=== PATIENT | female | born 1935 | race Two or more races ===

== ENCOUNTER 2018-01-27 13:16 | Inpatient (IN) | payer OTHER ==
--- NOTE | 2018-01-27 13:34 | PDOC ---
History of Present Illness - General Stated Complaint: ABDIMINAL PAIN Time Seen by Provider: 01/27/18 13:31 - History of Present Illness Initial Comments: 01/27/18 13:34 Ms. Singh is an 82 yo female w/ pmh of dementia, HTN, DM, CVA (1996), and HLD, who presents c/o a 2 day history of RLQ pain. Pain has been increasing over this time period to the point where she refused to get out of bed yesterday and has been in severe pain today. Patient normally is able to ambulate and has only facial asymmetry after her stroke. Per she normally likes to sit up however has been increasingly agitated and reported pain when he attempts to move her. Allergies: NKDA Past History - Past Medical History Allergies/Adverse Reactions: Allergies Allergy/AdvReac Type Severity Reaction Status Date / Time No Known Allergies Allergy Verified 01/27/18 13:39 Home Medications: Ambulatory Orders Amlodipine Bes/Olmesartan Med [Ant 5-20 mg Tablet] 1 tab PO DAILY 07/14/15 Aspirin [Aspirin EC] 81 mg PO DAILY 07/14/15 Atorvastatin Ca [Lipitor -] 20 mg PO DAILY 07/14/15 Linagliptin/Metformin HCl [Jentadueto 2.5 mg-500 mg Tab] 1 tab PO BID 07/14/15 CVA: Yes (1996) Dementia: Yes Diabetes: Yes HTN: Yes Hypercholesterolemia: Yes - Immunization History Immunization Up to Date: Yes - Suicide/Smoking/Psychosocial Hx Smoking Status: No Smoking History: Never smoked Number of Cigarettes Smoked Daily: 0 Hx Alcohol Use: No Drug/Substance Use Hx: No Substance Use Type: None Review of Systems - Review of Systems Comments:: 01/27/18 17:23 GENERAL/CONSTITUTIONAL: +Increased agitation. No fever or chills. HEAD, EYES, EARS, NOSE AND THROAT: No change in vision. No ear pain or discharge. No sore throat. CARDIOVASCULAR: No chest pain or shortness of breath RESPIRATORY: No cough, wheezing, or hemoptysis. GASTROINTESTINAL: No nausea, vomiting, diarrhea or constipation. GENITOURINARY: No dysuria, frequency, or change in urination. MUSCULOSKELETAL: No joint or muscle swelling or pain. No neck or back pain. SKIN: No rash NEUROLOGIC: +Unknown ENDOCRINE: No increased thirst. No abnormal weight change HEMATOLOGIC/LYMPHATIC: No anemia, easy bleeding, or history of blood clots. ALLERGIC/IMMUNOLOGIC: No hives or skin allergy. *Physical Exam - Physical Exam Comments: 01/27/18 17:30 GENERAL: +Patient altered from baseline per and visibly agitated. HEAD: No signs of trauma, normocephalic, atraumatic EYES: PERRLA, EOMI, sclera anicteric, conjunctiva clear ENT: Auricles normal inspection, hearing grossly normal, nares patent, oropharynx clear without exudates. Moist mucosa NECK: Normal ROM, supple, no lymphadenopathy, JVD, or masses LUNGS: No distress, speaks full sentences, clear to auscultation bilaterally HEART: Regular rate and rhythm, normal S1 and S2, no murmurs, rubs or gallops, peripheral pulses normal and equal bilaterally. ABDOMEN: Soft, nontender, normoactive bowel sounds. No guarding, no rebound. No masses EXTREMITIES: +Pain with straight leg raise (R). Normal inspection, no edema. No clubbing or cyanosis. NEUROLOGICAL: +Unable to assess. SKIN: Warm, Dry, normal turgor, no rashes or lesions noted. ED Treatment Course - LABORATORY CBC & Chemistry Diagram: 01/27/18 13:45 01/27/18 13:45 Medical Decision Making - Medical Decision Making 01/27/18 17:33 Ms. Singh is an 82 yo female w/ pmh as described who presents for evaluation of altered mental status and reported pain. Rectal temperature on presentation 100.6 with pulse of 106. Sepsis protocol started. Patient labs as below. Patient remains altered with pain. Levoquin IV given for empiric antibiotic coverage. CXR negative for acute process. UA negative for UTI. Additional fluids proscribed for elevated lactate. CT abdomen ordered to evaluate reported RLQ pain negative for acute process however raised some concern of obstructed UPJ. Bedside US revealed significant ureteral jets negating these concerns. Paging inpatient team for admission for further evaluation. 01/27/18 17:44 Patient admitted to inpatient team. Laboratory Results - last 24 hr 01/27/18 01/27/18 01/27/18 13:45 13:45 13:45 WBC 5.5 RBC 4.79 Hgb 11.4 Hct 35.2 MCV 73.5 L MCH 23.8 L MCHC 32.3 RDW 15.0 Plt Count 77 L MPV 10.4 Absolute Neuts (auto) 4.0 Neutrophils % 73.6 D Lymphocytes % 20.6 D Monocytes % 5.5 D Eosinophils % 0.0 Basophils % 0.3 Nucleated RBC % 0 PT with INR 11.00 INR 0.97 PTT (Actin FS) 25.5 L VBG pH POC VBG pCO2 POC VBG pO2 Mixed VBG HCO3 Sodium Potassium Chloride Carbon Dioxide Anion Gap BUN Creatinine Creat Clearance w eGFR Random Glucose Lactic Acid Calcium Total Bilirubin AST ALT Alkaline Phosphatase Troponin I Total Protein Albumin Urine Color Yellow Urine Appearance Clear Urine pH 5.0 D Ur Specific [place] 1.026 Urine Protein 2+ H Urine Glucose (UA) 3+ H D Urine Ketones 1+ H Urine Blood 1+ H Urine Nitrite Negative Urine Bilirubin Negative Urine Urobilinogen Negative Ur Leukocyte Esterase Negative Urine WBC (Auto) 2 Urine RBC (Auto) <1 Ur Epithelial Cells Rare Urine Bacteria Many Urine Mucus Rare 01/27/18 01/27/18 01/27/18 13:45 13:45 13:45 WBC RBC Hgb Hct MCV MCH MCHC RDW Plt Count MPV Absolute Neuts (auto) Neutrophils % Lymphocytes % Monocytes % Eosinophils % Basophils % Nucleated RBC % PT with INR INR PTT (Actin FS) VBG pH 7.39 POC VBG pCO2 40.7 POC VBG pO2 37.7 Mixed VBG HCO3 24.2 Sodium 142 Potassium 3.9 Chloride 107 Carbon Dioxide 26 Anion Gap 9 BUN 29 H Creatinine 0.8 Creat Clearance w eGFR > 60 Random Glucose 244 H Lactic Acid 2.1 H Calcium 9.3 Total Bilirubin 1.0 AST 17 ALT 20 Alkaline Phosphatase 71 Troponin I < 0.02 Total Protein 7.2 Albumin 3.9 Urine Color Urine Appearance Urine pH Ur Specific [place] Urine Protein Urine Glucose (UA) Urine Ketones Urine Blood Urine Nitrite Urine Bilirubin Urine Urobilinogen Ur Leukocyte Esterase Urine WBC (Auto) Urine RBC (Auto) Ur Epithelial Cells Urine Bacteria Urine Mucus *DC/Admit/Observation/Transfer Diagnosis at time of Disposition: Fever Qualifiers: Fever type: unspecified Qualified Code(s): R50.9 - Fever, unspecified Altered mental status Qualifiers: Altered mental status type: unspecified Qualified Code(s): R41.82 - Altered mental status, unspecified - Discharge Dispostion Decision to Admit order: Yes - Referrals Referrals: Judson Forman [Primary Care Provider] - - Patient Instructions - Post Discharge Activity
[2018-01-27] MEDS ORDERED: ACETAMINOPHEN 1000 MG/100 ML VIAL (NON FORMULARY) IVPB ONE (13:54)
[2018-01-27] MEDS ORDERED: SODIUM CHLORIDE 1,000 ML IV STA ×2 (13:54→17:39)
[2018-01-27] MEDS ORDERED: ACETAMINOPHEN INJECTION 100 ML IVPB ONE (14:01)
[2018-01-27 14:11] LABS: BASO % 0.3 % (0-2.0); HEMATOCRIT 35.2 % (32.4-45.2); HEMOGLOBIN 11.4 GM/dL (10.7-15.3); LYMPH % 20.6 % (8-40); MCH 23.8 pg (25.7-33.7); MCHC 32.3 g/dl (32.0-36.0); MEAN CELL VOLUME 73.5 fl (80-96); MEAN PLT VOLUME 10.4 fl (7.5-11.1); MONO % 5.5 % (3.8-10.2); NEUT % 73.6 % (42.8-82.8); PLATELET COUNT 77 K/MM3 (134-434); RBC 4.79 M/mm3 (3.60-5.2); WHITE BLOOD COUNT 5.5 K/mm3 (4.0-10.0)
[2018-01-27 14:12] LABS: URINE APPEARANCE CLEAR; URINE BILIRUBIN NEGATIVE (<2.0 mg/dL); URINE BLOOD 1+ (NEGATIVE); URINE COLOR YELLOW; URINE GLUCOSE (UA) 3+ (NEGATIVE); URINE KETONE 1+ (NEGATIVE); URINE LEUK ESTERASE NEGATIVE (NEGATIVE); URINE NITRITE NEGATIVE (NEGATIVE); URINE UROBILINOGEN NEGATIVE mg/dL (0.2-1.0)
[2018-01-27 14:16] LABS: URINE PROTEIN 2+ (NEGATIVE)
--- NOTE | 2018-01-27 14:17 | PDOC ---
Attending Attestation - Resident Resident Name: Rios Guillermo - ED Attending Attestation I have performed the following: I have examined & evaluated the patient, The case was reviewed & discussed with the resident, I agree w/resident's findings & plan, Exceptions are as noted - HPI HPI: 01/27/18 14:25 82y F hx of dementia, htn, dm, cva, hld, presents with change in behavior. Per her , he typically feeds her and she has not eated/drank as much recently , also not as active as she usually is and refused to get out of bed. He tried to pick her up and she was cmplaining of pain. No vomiting, cough, diarrhea, foul smelling urine. history limited due to her dementia nad most history provided from her spouse. GENERAL: The patient is awake, mubling, Nontoxic - in no acute distress. HEAD: Normocephalic, atraumatic. EYES: extraocular movements intact, sclera anicteric, conjunctiva clear. ENT: Normal voice, Moist mucous membranes. NECK: Normal range of motion, supple LUNGS: Breath sounds equal, clear to auscultation bilaterally. No wheezes, no rhonchi, no rales. HEART: tachycardic, normal S1 and S2 without murmur, rub or gallop. ABDOMEN: Soft, nontender, No guarding, no rebound. No CVA tenderness EXTREMITIES: Normal range of motion, no edema. No cords, erythema, or tenderness. NEUROLOGICAL: No facial assymetry, Normal speech, movinga ll 4 extrmities spontaneously and symmetrically PSYCH: Normal mood, normal affect. SKIN: hot to touch, Dry, normal turgor, no rashes The patient was noted febrile on arrival sepsis order set was obtained. The patient on the patient's clinical history and exam it is unclear the source of the fever, and chest x-ray, UA Give the patient some fluids and Tylenol Will reassess - Physicial Exam PE: 01/31/18 17:52 see above - Medical Decision Making 01/27/18 17:05 pt signed out to evening team to fu with results and disposition the patient Heart Score/ECG Review - ECG Impressions Comment:: 01/27/18 14:31 Twelve-lead EKG was performed and reviewed by me. There is normal sinus rhythm with a rate of 111 The axis is normal. The intervals are normal. There is normal R wave progression Nonspecific ST wave changes
[2018-01-27 14:20] LABS: VENOUS PC02 40.7 mmHg (38-52); VENOUS PH 7.39 (7.32-7.42); VENOUS PO2 37.7 mmHg (28-48)
[2018-01-27 14:22] LABS: INR 0.97 (0.82-1.09)
[2018-01-27 14:24] LABS: EPI CELLS RARE /HPF (FEW); URINE BACTERIA MANY /hpf (NONE SEEN); URINE MUCUS RARE
[2018-01-27 14:25] LABS: ACTIVATED PTT 25.5 SECONDS (26.9-34.4)
[2018-01-27 14:36] LABS: ALBUMIN 3.9 g/dl (3.4-5.0); ANION GAP 9 (8-16); BLOOD UREA NITROGEN 29 mg/dL (7-18); CALCIUM 9.3 mg/dL (8.5-10.1); CHLORIDE 107 mmol/L (98-107); CO2 26 mmol/L (21-32); GLUCOSE,RANDOM 244 mg/dL (74-106); POTASSIUM 3.9 mmol/L (3.5-5.1); SGOT/AST 17 U/L (15-37); SODIUM 142 mmol/L (136-145)
[2018-01-27 14:41] LABS: ALK PHOS 71 U/L (45-117); CREATININE 0.8 mg/dL (0.55-1.02); SGPT/ALT 20 U/L (12-78); TOT PROT 7.2 g/dl (6.4-8.2)
[2018-01-27] MEDS ORDERED: SODIUM CHLORIDE 1,000 ML IV ONE (15:08)
--- NOTE | 2018-01-27 18:41 | HP ---
CHIEF COMPLAINT: AMS PCP: Judson Forman HISTORY OF PRESENT ILLNESS: This is an 82 year old female with PMHx of anemia, CVA 1992, DM, hyperlipidemia , dementia, who presented to the ED with RLQ since yesterday. The patient's is the primary healthcare management. He reports the patient was diagnosed with dementia 4 years ago and if non-conversant. He states she speaks jibberish. He reports that yesterday he noticed she was having pain on her right side and this morning when she tried to change her diaper she was grimacing and crying out in pain. He denies any fevers at home. He denies any sick contacts. ER course was notable for: (1) Temp 100.6, pulse 106, BP 137/68, resp 20, O2 97% on RA (2) Chest x-ray with no definite interval change (3) CTAP with mild splenomegaly, cholelithiasis, suspected b/l UPJ obstructions. No evidence of appendicitis or acute pathology within the abdomen or pelvis Recent Travel: denies PAST MEDICAL HISTORY: as above PAST SURGICAL HISTORY: Lower extremity angioplasty Social History: Smoking: denies Alcohol: denies Drugs: denies Family History: Allergies No Known Allergies Allergy (Verified 01/27/18 13:39) HOME MEDICATIONS: Home Medications Medication Instructions Recorded Amlodipine Bes/Olmesartan Med 1 tab PO DAILY 07/14/15 [Ant 5-20 mg Tablet] Aspirin [Aspirin EC] 81 mg PO DAILY 07/14/15 Atorvastatin Ca [Lipitor -] 20 mg PO DAILY 07/14/15 Linagliptin/Metformin HCl 1 tab PO BID 07/14/15 [Jentadueto 2.5 mg-500 mg Tab] REVIEW OF SYSTEMS CONSTITUTIONAL: Absent: fever, chills, diaphoresis, loss of appetite, weight change HEENT: Absent: rhinorrhea, nasal congestion, throat pain, throat swelling, difficulty swallowing, mouth swelling, ear pain, eye pain, visual changes CARDIOVASCULAR: Absent: chest pain, syncope, palpitations, irregular heart rate, lightheadedness , peripheral edema RESPIRATORY: Absent: cough, shortness of breath, dyspnea with exertion, orthopnea, wheezing, stridor, hemoptysis GASTROINTESTINAL: RLQ pain that began yesterday and worsened this morning. Absent: abdominal distension, nausea, vomiting, diarrhea, constipation, melena, hematochezia GENITOURINARY: Absent: dysuria, frequency, urgency, hesitancy, hematuria, flank pain, genital pain MUSCULOSKELETAL: Absent: myalgia, arthralgia, joint swelling, back pain, neck pain SKIN: Absent: rash, itching, pallor HEMATOLOGIC/IMMUNOLOGIC: Absent: easy bleeding, easy bruising, lymphadenopathy, frequent infections ENDOCRINE: Absent: unexplained weight gain, unexplained weight loss, heat intolerance, cold intolerance NEUROLOGIC: Hx of CVA 1992, change in mental status since yesterday Absent: focal weakness or paresthesias, dizziness, unsteady gait, seizure, bladder or bowel incontinence PSYCHIATRIC: Absent: anxiety, depression PHYSICAL EXAMINATION Vital Signs - 24 hr 01/27/18 01/27/18 01/27/18 13:35 13:45 15:08 Temperature 100.6 F H Pulse Rate 106 H Pulse Rate [ 113 H 105 H Apical] Respiratory 20 20 18 Rate Blood Pressure 137/68 Blood Pressure 145/73 163/79 [Right Arm] O2 Sat by Pulse 97 98 98 Oximetry (%) 01/27/18 17:52 Temperature 98 F Pulse Rate Pulse Rate [ 108 H Apical] Respiratory 20 Rate Blood Pressure Blood Pressure 145/65 [Right Arm] O2 Sat by Pulse 95 Oximetry (%) GENERAL: Awake, alert, and fully oriented, in no acute distress. HEAD: Normal with no signs of trauma. EYES: Pupils equal, round and reactive to light, extraocular movements intact, sclera anicteric, conjunctiva clear. No lid lag. EARS, NOSE, THROAT: Ears normal, nares patent, oropharynx clear without exudates. Moist mucous membranes. NECK: Normal range of motion, supple without lymphadenopathy, JVD, or masses. LUNGS: Breath sounds equal, clear to auscultation bilaterally. No wheezes, and no crackles. No accessory muscle use. HEART: Regular rate and rhythm, normal S1 and S2 without murmur, rub or gallop. ABDOMEN: Soft, nontender, not distended, normoactive bowel sounds, no guarding, no rebound, no masses. No hepatomegaly or splenomegaly. MUSCULOSKELETAL: Normal range of motion at all joints. No bony deformities or tenderness. No CVA tenderness. UPPER EXTREMITIES: 2+ pulses, warm, well-perfused. No cyanosis. No clubbing. No peripheral edema. LOWER EXTREMITIES: 2+ pulses, warm, well-perfused. No calf tenderness. No peripheral edema. NEUROLOGICAL: Cranial nerves II-XII intact. Normal speech. Normal gait. PSYCHIATRIC: Cooperative. Good eye contact. Appropriate mood and affect. SKIN: Warm, dry, normal turgor, no rashes or lesions noted, normal capillary refill. Laboratory Results - last 24 hr 01/27/18 01/27/18 01/27/18 13:45 13:45 13:45 WBC 5.5 RBC 4.79 Hgb 11.4 Hct 35.2 MCV 73.5 L MCH 23.8 L MCHC 32.3 RDW 15.0 Plt Count 77 L MPV 10.4 Absolute Neuts (auto) 4.0 Neutrophils % 73.6 D Lymphocytes % 20.6 D Monocytes % 5.5 D Eosinophils % 0.0 Basophils % 0.3 Nucleated RBC % 0 PT with INR 11.00 INR 0.97 PTT (Actin FS) 25.5 L VBG pH POC VBG pCO2 POC VBG pO2 Mixed VBG HCO3 Sodium Potassium Chloride Carbon Dioxide Anion Gap BUN Creatinine Creat Clearance w eGFR Random Glucose Lactic Acid Calcium Total Bilirubin AST ALT Alkaline Phosphatase Troponin I Total Protein Albumin Urine Color Yellow Urine Appearance Clear Urine pH 5.0 D Ur Specific [place] 1.026 Urine Protein 2+ H Urine Glucose (UA) 3+ H D Urine Ketones 1+ H Urine Blood 1+ H Urine Nitrite Negative Urine Bilirubin Negative Urine Urobilinogen Negative Ur Leukocyte Esterase Negative Urine WBC (Auto) 2 Urine RBC (Auto) <1 Ur Epithelial Cells Rare Urine Bacteria Many Urine Mucus Rare 01/27/18 01/27/18 01/27/18 13:45 13:45 13:45 WBC RBC Hgb Hct MCV MCH MCHC RDW Plt Count MPV Absolute Neuts (auto) Neutrophils % Lymphocytes % Monocytes % Eosinophils % Basophils % Nucleated RBC % PT with INR INR PTT (Actin FS) VBG pH 7.39 POC VBG pCO2 40.7 POC VBG pO2 37.7 Mixed VBG HCO3 24.2 Sodium 142 Potassium 3.9 Chloride 107 Carbon Dioxide 26 Anion Gap 9 BUN 29 H Creatinine 0.8 Creat Clearance w eGFR > 60 Random Glucose 244 H Lactic Acid 2.1 H Calcium 9.3 Total Bilirubin 1.0 AST 17 ALT 20 Alkaline Phosphatase 71 Troponin I < 0.02 Total Protein 7.2 Albumin 3.9 Urine Color Urine Appearance Urine pH Ur Specific [place] Urine Protein Urine Glucose (UA) Urine Ketones Urine Blood Urine Nitrite Urine Bilirubin Urine Urobilinogen Ur Leukocyte Esterase Urine WBC (Auto) Urine RBC (Auto) Ur Epithelial Cells Urine Bacteria Urine Mucus 01/27/18 17:15 WBC RBC Hgb Hct MCV MCH MCHC RDW Plt Count MPV Absolute Neuts (auto) Neutrophils % Lymphocytes % Monocytes % Eosinophils % Basophils % Nucleated RBC % PT with INR INR PTT (Actin FS) VBG pH POC VBG pCO2 POC VBG pO2 Mixed VBG HCO3 Sodium Potassium Chloride Carbon Dioxide Anion Gap BUN Creatinine Creat Clearance w eGFR Random Glucose Lactic Acid 1.3 Calcium Total Bilirubin AST ALT Alkaline Phosphatase Troponin I Total Protein Albumin Urine Color Urine Appearance Urine pH Ur Specific [place] Urine Protein Urine Glucose (UA) Urine Ketones Urine Blood Urine Nitrite Urine Bilirubin Urine Urobilinogen Ur Leukocyte Esterase Urine WBC (Auto) Urine RBC (Auto) Ur Epithelial Cells Urine Bacteria Urine Mucus Assessment: This is an 82 year old female with PMHx of anemia, CVA 1992, DM, hyperlipidemia, dementia, who presented to the ED with RLQ since yesterday. Plan: 1) Acute metabolic encephalopathy - R/o infectious etiology; UA negative, f/u urine culture. f/u blood culture - F/u CT head to r/o hemorrhage - F/u b12, folic acid, rpr - Given empiric levaquin in the ED - F/u ID consult for further recommendations - F/u neurology consult 2) B/l UPJ obstruction - F/u urology consult 3) DM - BGM ACHS - ISS ACHS 4) HTN - Continue Norvasc - Continue Diovan 5) Hyperlipidemia - Continue Lipitor 6) F/E/N: - Diabetic diet 7) Prophylaxis: - Hold all chemical DVT prophylaxis until head CT rules out hemorrhage 8) Dispo: - Requires continued inpatient care CODE STATUS: FULL CODE Visit type - Emergency Visit Emergency Visit: Yes Care time: The patient presented to the Emergency Department on the above date and was hospitalized for further evaluation of their emergent condition. - New Patient This patient is new to me today: Yes Date on this admission: 01/27/18 - Critical Care Critical Care patient: No Hospitalist Screening - Colonoscopy Questionnaire Colonoscopy Questionnaire: Colonoscopy Questionnaire - Patient: 50 - 75 years old and never had a screening colonoscopy: Unknown History of colon or rectal polyps, or CA: Unknown History of IBD, Crohn's disease or UC: Unknown History of abdominal radiation therapy as a child: Unknown - Relative: 1 with colon or rectal CA, or polyps at age 60 or younger: Unknown Colon or rectal CA diagnosed at age 45 or younger: Unknown Multiple relatives with colon or rectal CA: Unknown - Outcome: Screening Result: Negative Screen
[2018-01-27] MEDS: SODIUM CHLORIDE 1,000 ML IV SCH (19:48)
[2018-01-27 21:49] LABS: BASO % 0.4 % (0-2.0); HEMATOCRIT 29.7 % (32.4-45.2); HEMOGLOBIN 9.6 GM/dL (10.7-15.3); LYMPH % 19.4 % (8-40); MCH 23.7 pg (25.7-33.7); MCHC 32.2 g/dl (32.0-36.0); MEAN CELL VOLUME 73.7 fl (80-96); MEAN PLT VOLUME 10.2 fl (7.5-11.1); MONO % 7.1 % (3.8-10.2); NEUT % 73.1 % (42.8-82.8); PLATELET COUNT 72 K/MM3 (134-434); RBC 4.04 M/mm3 (3.60-5.2); RDW 14.9 % (11.6-15.6); WHITE BLOOD COUNT 4.5 K/mm3 (4.0-10.0)
[2018-01-27] MEDS: INSULIN SLIDING SCALE (NOVOLOG) 1 VIAL SQ SCH (21:56)
[2018-01-27 22:12] LABS: ALBUMIN 3.2 g/dl (3.4-5.0); ANION GAP 6 (8-16); BLOOD UREA NITROGEN 22 mg/dL (7-18); CALCIUM 7.6 mg/dL (8.5-10.1); CHLORIDE 112 mmol/L (98-107); CO2 27 mmol/L (21-32); CREATININE 0.7 mg/dL (0.55-1.02); GLUCOSE,RANDOM 194 mg/dL (74-106); POTASSIUM 4.3 mmol/L (3.5-5.1); SGOT/AST 19 U/L (15-37); SGPT/ALT 16 U/L (12-78); SODIUM 145 mmol/L (136-145)
[2018-01-27 22:15] LABS: ALK PHOS 68 U/L (45-117); BILIRUBIN,TOTAL 0.7 mg/dL (0.2-1.0); TOT PROT 6.2 g/dl (6.4-8.2)
[2018-01-27 22:48] LABS: PLATELET ESTIMATE MOD DECREASED
[2018-01-28] MEDS: INSULIN SLIDING SCALE (NOVOLOG) 1 VIAL SQ SCH ×4 (06:04→22:01)
--- NOTE | 2018-01-28 07:18 | CONSULT ---
Consult - Past Medical History [employer]: Yes: Dementia, TIA Cardio/Vascular: Yes: HTN, Hyperlipdemia Endocrine: Yes: Diabetes Mellitus - Past Surgical History Past Surgical History: Yes: None - Alcohol/Substance Use Hx Alcohol Use: No History of Substance Use: reports: None - Smoking History Smoking history: Never smoked Aproximately how many cigarettes per day: 0 - Social History ADL: Family Assistance History of Recent Travel: No Home Medications - Allergies Allergies/Adverse Reactions: Allergies Allergy/AdvReac Type Severity Reaction Status Date / Time No Known Allergies Allergy Verified 01/27/18 13:39 - Home Medications Home Medications: Ambulatory Orders Amlodipine Bes/Olmesartan Med [Ant 5-20 mg Tablet] 1 tab PO DAILY 07/14/15 Aspirin [Aspirin EC] 81 mg PO DAILY 07/14/15 Atorvastatin Ca [Lipitor -] 20 mg PO DAILY 07/14/15 Linagliptin/Metformin HCl [Jentadueto 2.5 mg-500 mg Tab] 1 tab PO BID 07/14/15 Physical Exam Vital Signs: Vital Signs Temperature 99.4 F 01/28/18 06:00 Pulse Rate 99 H 01/28/18 06:00 Respiratory Rate 18 01/28/18 06:00 Blood Pressure 156/79 01/28/18 06:00 O2 Sat by Pulse Oximetry (%) 98 01/27/18 21:00 Labs: CBC, BMP 01/27/18 21:10 01/27/18 21:10 Assessment/Plan Patient with isolated fever. Tenderness to palpationover both hips. could explain low grade fever stat hip and pelvis bilateral Xrays ordered no WBC count elevation no tachycardia Clear CXR UA negativer cultures negative in the past Cultures pending full consult to follow
--- NOTE | 2018-01-28 07:54 | PN ---
Progress Note, Physician Chief Complaint: ID Full noted dictated Only history from chart Low grade temp 99-100 Does not respond questions - Current Medication List Current Medications: Active Medications Amlodipine Besylate (Norvasc -) 5 mg PO DAILY OSMANY Atorvastatin Calcium (Lipitor -) 20 mg PO HS OSMANY Sodium Chloride (Normal Saline -) 1,000 mls @ 83 mls/hr IV ASDIR OSMANY Last Admin: 01/27/18 19:48 Dose: 83 mls/hr Insulin Aspart (Novolog Vial Sliding Scale -) 1 vial SQ ACHS OSMANY; Protocol Last Admin: 01/28/18 06:04 Dose: 2 units Valsartan (Diovan -) 160 mg PO DAILY [facility] - Objective Vital Signs: Vital Signs Temperature 99.4 F 01/28/18 06:00 Pulse Rate 99 H 01/28/18 06:00 Respiratory Rate 18 01/28/18 06:00 Blood Pressure 156/79 01/28/18 06:00 O2 Sat by Pulse Oximetry (%) 98 01/27/18 21:00 Constitutional: Yes: No Distress Cardiovascular: Yes: S1, S2 Respiratory: Yes: WNL, Regular, CTA Bilaterally Gastrointestinal: Yes: WNL, Normal Bowel Sounds, Soft. No: Tenderness Edema: No Labs: CBC, BMP 01/27/18 21:10 01/27/18 21:10 INR, PTT INR 0.97 (0.82-1.09) 01/27/18 13:45 Problem List - Problems (1) Dementia Code(s): F03.90 - UNSPECIFIED DEMENTIA WITHOUT BEHAVIORAL DISTURBANCE (2) Altered mental status Code(s): R41.82 - ALTERED MENTAL STATUS, UNSPECIFIED Qualifiers: Altered mental status type: unspecified Qualified Code(s): R41.82 - Altered mental status, unspecified (3) Fever Code(s): R50.9 - FEVER, UNSPECIFIED Qualifiers: Fever type: unspecified Qualified Code(s): R50.9 - Fever, unspecified (4) Hydronephrosis Code(s): N13.30 - UNSPECIFIED HYDRONEPHROSIS Qualifiers: Hydronephrosis type: unspecified Qualified Code(s): N13.30 - Unspecified hydronephrosis Assessment/Plan Laboratory Tests 01/27/18 01/27/18 01/27/18 13:45 13:45 17:15 WBC Hgb Hct Plt Count Creatinine Lactic Acid 2.1 H 1.3 Total Bilirubin AST ALT Alkaline Phosphatase Ur Leukocyte Esterase Negative Urine WBC (Auto) 2 Urine Bacteria Many 01/27/18 01/27/18 21:10 21:10 WBC 4.5 Hgb 9.6 L D Hct 29.7 L D Plt Count 72 L Creatinine 0.7 Lactic Acid Total Bilirubin 0.7 D AST 19 ALT 16 Alkaline Phosphatase 68 Ur Leukocyte Esterase Urine WBC (Auto) Urine Bacteria Assessment Fever altered mental status I suspect metabolic encephalopathy- may have urinary infection and treat accordingly Plan Ceftriaxone 1 gram daily pending cultures Anthony CALLE
[2018-01-28] MEDS ORDERED: CEFTRIAXONE 1,000 MG in DEXTROSE 5%-WATER - 50 ML IVPB SCH (08:15)
--- NOTE | 2018-01-28 08:25 | CON.NEURO ---
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 Cardio/Vascular: Yes: HTN, Hyperlipdemia Endocrine: Yes: Diabetes Mellitus - Past Surgical History Past Surgical History: Yes: None - Alcohol/Substance Use Hx Alcohol Use: No History of Substance Use: reports: None - Smoking History Smoking history: Never smoked Aproximately how many cigarettes per day: 0 - Social History ADL: Family Assistance History of Recent Travel: No Home Medications - Allergies Allergies/Adverse Reactions: Allergies Allergy/AdvReac Type Severity Reaction Status Date / Time No Known Allergies Allergy Verified 01/27/18 13:39 - Home Medications Home Medications: Ambulatory Orders Amlodipine Bes/Olmesartan Med [Ant 5-20 mg Tablet] 1 tab PO DAILY 07/14/15 Aspirin [Aspirin EC] 81 mg PO DAILY 07/14/15 Atorvastatin Ca [Lipitor -] 20 mg PO DAILY 07/14/15 Linagliptin/Metformin HCl [Jentadueto 2.5 mg-500 mg Tab] 1 tab PO BID 07/14/15 Physical Exam-Neuro Vital Signs: Vital Signs Temperature 99.4 F 01/28/18 06:00 Pulse Rate 99 H 01/28/18 06:00 Respiratory Rate 18 01/28/18 06:00 Blood Pressure 156/79 01/28/18 06:00 O2 Sat by Pulse Oximetry (%) 98 01/27/18 21:00 Labs: INR, PTT INR 0.97 (0.82-1.09) 01/27/18 13:45 Assessment/Plan cc Dementia HPI 82 Year old female history of stroke, anemia, DM, Dementia for four years. She came with right lower quadrant pain and temp of [address] scan , which is normal. Patient is non verbal and not mobile as baseline. Patient is non communicative and I tried to speak to her with help of principal biostatistician. Patient has no seizure. She has been started on Abx empirically. There is no witnessed seizure in hospital. PMH as above. SH angioplasty in lower extremity SH,FH,ROS reviewed in chart HOME MEDICATIONS: Home Medications Medication Instructions Recorded Amlodipine Bes/Olmesartan Med 1 tab PO DAILY 07/14/15 [Ant 5-20 mg Tablet] Aspirin [Aspirin EC] 81 mg PO DAILY 07/14/15 Atorvastatin Ca [Lipitor -] 20 mg PO DAILY 07/14/15 Linagliptin/Metformin HCl 1 tab PO BID 07/14/15 [Jentadueto 2.5 mg-500 mg Tab] Neurological Examination Drowsy and opens eye, mumbling and not making sense. not able to follow command. eomi, no face asymmetry, pupils reactive moving upper extremity lower extremity seems to have rigidity and not moving as much reflex are generalized grade 2 There is terminal neck stiffness, could be due to osteoarthritis CT head is normal Assessment- worsening of mental status, History of severe dementia. Clinically less likley to be meningitis ( no siginificant neck stiffness, wbc and no high grade fever), Most likley intercurrent illness may have worsen. Plan- there is no need for any further testing ( Spinal tap) at this time. - Continue supportive care - Please feel free to call me if any question Thanking you so much Anselmo Hutson MD
--- NOTE | 2018-01-28 08:41 | CONS ---
DATE OF CONSULTATION: DATE OF DICTATION: 01/28/2018 HISTORY OF PRESENT ILLNESS: This is an 82-year-old female with a history of dementia who I am asked to see after being admitted with fever. The patient though arousable is unable to answer any questions appropriately I assume on the basis of her dementia. Thus, the history is obtained from reviewing multiple notes in the chart. She is a known diabetic with a history of a stroke in the past and presented to the emergency room with what was described as right lower quadrant pain. Her takes care of her and notes that she has had a diagnosis of dementia for several years and is generally nonconversant. Apparently the day of admission she complained of some pain on her right side and when he tried to change her diaper appeared to be grimacing and cried out in pain. She had low-grade fever on arrival. She was given a dose of Levaquin empirically after cultures of blood and urine were obtained. Her chest x-ray did not show any evidence of pneumonia. Her platelets were noted to be low, but this is apparently chronic and as of now unexplained. A CAT scan of the abdomen showed suspected bilateral UVJ obstructions and a urinalysis showed a few white cells with many bacteria. No evidence of acute abdomen was seen. Currently her temperature is 99. She appears in no acute distress. PAST MEDICAL HISTORY: As noted above. SURGICAL HISTORY: Lower extremity angioplasty. MEDICATIONS: Amlodipine; aspirin; atorvastatin; linagliptin; metformin. SOCIAL HISTORY: . Nonsmoker. No history of alcohol use. FAMILY HISTORY: Currently obtainable. REVIEW OF SYSTEMS:Respiratory: No obvious cough, shortness of breath or hemoptysis. Cardiac: No chest pain, syncope, palpitations, peripheral edema. Gastrointestinal: Right lower quadrant pain x1 day ?, no abdominal distention, nausea, vomiting, diarrhea, melena. Genitourinary: Unable to report any dysuria or frequency if she has that. Neurologic: History of a stroke, history of dementia. PHYSICAL EXAMINATION:Vital Signs: Her temperature now is 99.4, pulse 99, blood pressure 156/79, respirations 18. Initially temperature 100, pulse 116, blood pressure 130/68, O2 saturation 98 on room air. Neck: Supple. Lungs: Clear to percussion and auscultation. Heart: S1, S2. Regular rhythm without audible murmur. Abdomen: Soft, nontender, without hepatosplenomegaly. No focal tenderness, guarding, rebound. No palpable mass. Extremities: No clubbing, cyanosis or edema. LABORATORY DATA: The white count was 4.5, hemoglobin 9.6, platelets of 72,000 with an unremarkable differential. BUN 22, creatinine 0.6. Liver enzymes within normal limits. A urinalysis with 2+ protein, 3+ glucose, 1+ blood, 2 WBCs and many bacteria. Cultures of blood and urine currently pending. Chest x-ray shows no evidence of acute infiltrate. ASSESSMENT: An 82-year-old female with dementia presents with overall change in her day-to-day condition in which her noted complaining of new onset of right lower abdominal pain and increasingly agitated as per the notes, particularly when the patient was moved. Low-grade temperature. Possibility that the patient may have passed a kidney stone. 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 RECOMMENDATIONS: I would empirically treat her for the possibility of an underlying urinary tract infection with metabolic encephalopathy on the basis of UTI. Will get a renal sonogram . Low platelets are noted. This is chronic. BLANCA MILLS M.D. VINCENT/[id number]
[2018-01-28 08:50] LABS: ALBUMIN 3.3 g/dl (3.4-5.0); ANION GAP 8 (8-16); BILIRUBIN,TOTAL 0.9 mg/dL (0.2-1.0); BLOOD UREA NITROGEN 19 mg/dL (7-18); CALCIUM 8.3 mg/dL (8.5-10.1); CHLORIDE 109 mmol/L (98-107); CO2 25 mmol/L (21-32); CREATININE 0.5 mg/dL (0.55-1.02); PHOSPHOROUS 2.1 mg/dL (2.5-4.9); POTASSIUM 3.6 mmol/L (3.5-5.1); SGOT/AST 20 U/L (15-37); SGPT/ALT 19 U/L (12-78); SODIUM 142 mmol/L (136-145)
[2018-01-28 08:51] LABS: BASO % 0.3 % (0-2.0); HEMATOCRIT 30.6 % (32.4-45.2); HEMOGLOBIN 9.9 GM/dL (10.7-15.3); LYMPH % 27.5 % (8-40); MCH 23.8 pg (25.7-33.7); MCHC 32.5 g/dl (32.0-36.0); MEAN CELL VOLUME 73.2 fl (80-96); MEAN PLT VOLUME 9.5 fl (7.5-11.1); MONO % 5.1 % (3.8-10.2); NEUT % 67.1 % (42.8-82.8); PLATELET COUNT 64 K/MM3 (134-434); RBC 4.18 M/mm3 (3.60-5.2); WHITE BLOOD COUNT 4.4 K/mm3 (4.0-10.0)
[2018-01-28 08:52] LABS: ALK PHOS 58 U/L (45-117); GLUCOSE,RANDOM 135 mg/dL (74-106); TOT PROT 6.3 g/dl (6.4-8.2)
[2018-01-28] MEDS ORDERED: PATIENT'S OWN MEDICATION (NON-FORMULARY) (Amlodipine Bes/Olmesartan Med [Azor 5-20 Mg Tabl PO SCH (10:00)
[2018-01-28] MEDS ORDERED: DEXTROSE 5%-WATER - 50 ML IVPB ONE (10:02)
[2018-01-28] MEDS ORDERED: cefTRIAXone SODIUM 1 GM VIAL ONE (10:02)
[2018-01-28] MEDS: CEFTRIAXONE 1 GM in DEXTROSE 5%-WATER - 50 ML IVPB SCH (10:04)
[2018-01-28] MEDS: VALSARTAN 160 MG TABLET (UD) PO SCH (10:04)
[2018-01-28] MEDS: amLODIPine BESYLATE 5 MG TABLET (FP) PO SCH (10:04)
--- NOTE | 2018-01-28 10:26 | EKG ---
Test Reason : Blood Pressure : / mmHG Vent. Rate : 111 BPM Atrial Rate : 111 BPM P-R Int : 114 ms QRS Dur : 074 ms QT Int : 316 ms P-R-T Axes : 069 036 072 degrees QTc Int : 429 ms SINUS TACHYCARDIA NONSPECIFIC ST ABNORMALITY ABNORMAL ECG Confirmed by JESE PERDUE MD ([id number]) on 01/28/2018 10:26:32 AM Referred By: Confirmed By:JESE PERDUE MD
[2018-01-28] MEDS ORDERED: INSULIN (NOVOLOG) ASPART 100 UNITS/ML 10ML VIAL ONE (12:00)
--- NOTE | 2018-01-28 12:05 | PN ---
Progress Note (short form) - Note Progress Note: ID original note Accidentally canceled original note read patient seen and examined at bedside labs reviewed patient had one isolated fever of 100.6 she is currently a febrile no elevated white blood cell count no tachypnea patient is resting comfortably chest x-ray is clear CT scan shows possible bilateral UPJ obstruction urinalysis is negative physical exam awake RRR CTAB abd soft non tender bilateral hip and pelvic severe tenderness will get stat Hip and pelvic XRay bilaterally full consult to follow
--- NOTE | 2018-01-28 12:38 | PN ---
Progress Note, Physician Chief Complaint: s/p fall Pubic [place] fracture History of Present Illness: NAD -, daughter and son in law at bedside lethargic but arousable Seen by ortho, no surgical intervention recommended at this time Seen by id- no need for abx - Current Medication List Current Medications: Active Medications Amlodipine Besylate (Norvasc -) 5 mg PO DAILY [facility] Last Admin: 01/28/18 10:04 Dose: 5 mg Atorvastatin Calcium (Lipitor -) 20 mg PO HS [facility] Heparin Sodium (Porcine) (Heparin -) 5,000 unit SQ BID [facility] Sodium Chloride (Normal Saline -) 1,000 mls @ 83 mls/hr IV ASDIR [facility] Last Admin: 01/27/18 19:48 Dose: 83 mls/hr Ceftriaxone Sodium 1 gm/ (Dextrose) 50 mls @ 100 mls/hr IVPB DAILY [facility] Last Admin: 01/28/18 10:04 Dose: 100 mls/hr Insulin Aspart (Novolog Vial Sliding Scale -) 1 vial SQ ACHS [facility]; Protocol Last Admin: 01/28/18 12:01 Dose: 4 units Valsartan (Diovan -) 160 mg PO DAILY [facility] Last Admin: 01/28/18 10:04 Dose: 160 mg - Objective Vital Signs: Vital Signs Temperature 99 F 01/28/18 10:00 Pulse Rate 96 H 01/28/18 10:00 Respiratory Rate 18 01/28/18 10:00 Blood Pressure 171/76 01/28/18 10:00 O2 Sat by Pulse Oximetry (%) 98 01/27/18 21:00 Constitutional: Yes: Well Nourished, No Distress, Calm Cardiovascular: Yes: Regular Rate and Rhythm Respiratory: Yes: Regular Gastrointestinal: Yes: Normal Bowel Sounds, Soft Musculoskeletal: Yes: Muscle Weakness Edema: No Peripheral Pulses WNL: Yes Neurological: Yes: Alert, Pre-Existing Deficit Labs: CBC, BMP 01/28/18 07:45 01/28/18 07:45 INR, PTT INR 0.97 (0.82-1.09) 01/27/18 13:45 Problem List - Problems (1) Anemia Assessment/Plan: -Vit B12 def-replenish -Iron profile pending -Stool OB pending -Thyroid profile pending Code(s): D64.9 - ANEMIA, UNSPECIFIED (2) Dementia Code(s): F03.90 - UNSPECIFIED DEMENTIA WITHOUT BEHAVIORAL DISTURBANCE (3) Diabetes Assessment/Plan: on Insulin sliding scale -BGM -Diabetic diet -RD consult Code(s): E11.9 - TYPE 2 DIABETES MELLITUS WITHOUT COMPLICATIONS (4) Pubic ramus fracture Assessment/Plan: -Seen by ortho -Physical therapy -likely SNF upon discharge -Pain management, acetaminophen 650 mg PO Q6H PRN for pain scale 1-3 -Tramadol 50 mg po Q8H PRN for pain scale 4-6 -Morphine 1 mg IVP Q6H PRN for pain scale 7-10 Code(s): S32.599A - OTH FRACTURE OF UNSP PUBIS, INIT ENCNTR FOR CLOSED FRACTURE (5) Severe protein-calorie malnutrition Assessment/Plan: -RD consult -High clorie diet -Glucerna TID -Prosource TID -multivitamin Code(s): E43 - UNSPECIFIED SEVERE PROTEIN-CALORIE MALNUTRITION (6) Status post fall Assessment/Plan: -Physical therapy -SNF Code(s): Z91.81 - HISTORY OF FALLING (7) Hydronephrosis Assessment/Plan: By chance finding to be seen by Code(s): N13.30 - UNSPECIFIED HYDRONEPHROSIS Qualifiers: Hydronephrosis type: unspecified Qualified Code(s): N13.30 - Unspecified hydronephrosis Assessment/Plan see problem list DVT prophylaxis
[2018-01-28] MEDS ORDERED: ACETAMINOPHEN 325 MG TABLET (FP) PO PRN (12:43)
[2018-01-28] MEDS: CALCIUM 500MG/VIT-D 200 UNITS COMBO TABLET (FP) PO SCH (13:44)
[2018-01-28] MEDS: traMADol HCL 50 MG TABLET PO PRN (13:44)
[2018-01-28] MEDS: CYANOCOBALAMIN (VITAMIN B-12) 1000 MCG/1 ML VIAL IM SCH (13:44)
[2018-01-28] MEDS: MULTIVITAMINS (DAILY MVI) TABLET (FP) PO SCH (13:44)
[2018-01-28] MEDS: ASCORBIC ACID 500 MG TABLET (FP) PO SCH ×2 (13:44→22:01)
[2018-01-28] MEDS: ZINC SULFATE 220 MG CAPSULE (FP) PO SCH ×2 (13:44→22:00)
--- NOTE | 2018-01-28 14:45 | CONSULT ---
Consult - text type - Consultation Consultation Note: 10o y.o female s/p fall c/o right hip pain and inability to ambulate PE: no LLD or shortneing + tenderness over pubic rami NT over hip minimal swelling, no ecchymosis or redness calf soft and NT NVI Xray: right sup/inf pubic ramus fx IMP: r sup/inf pubic ramus fx plan: analgesics, PT- WBAT, DVT prophylaxixs, DC planning
[2018-01-28] MEDS: SODIUM CHLORIDE 1,000 ML IV SCH (15:14)
[2018-01-28] MEDS ORDERED: AMINO ACIDS/PROTEIN HYDROLYS 30 ML LIQUID.PKT PO SCH (17:30)
[2018-01-28] MEDS: morphine SULFATE 4 MG/ML VIAL IVPUSH PRN (18:44)
[2018-01-28] MEDS: HEPARIN NA (PORCINE) 5,000 UNITS/ML 1ML VIAL SQ SCH (22:00)
[2018-01-28] MEDS: ATORVASTATIN CA 20 MG TABLET (FP) PO SCH (22:00)
[2018-01-29] MEDS: morphine SULFATE 4 MG/ML VIAL IVPUSH PRN (02:41)
[2018-01-29] MEDS: SODIUM CHLORIDE 1,000 ML IV SCH ×2 (02:44→17:27)
[2018-01-29] MEDS: INSULIN SLIDING SCALE (NOVOLOG) 1 VIAL SQ SCH ×4 (06:14→22:04)
--- NOTE | 2018-01-29 07:29 | PN ---
Progress Note, Physician Chief Complaint: s.p fall History of Present Illness: NAD lethargic but arousable Seen by ortho, no surgical intervention recommended at this time Seen by id- no need for abx - Current Medication List Current Medications: Active Medications Acetaminophen (Tylenol -) 650 mg PO Q6H PRN PRN Reason: PAIN LEVEL 1 - 3 Last Admin: 01/28/18 17:03 Dose: 650 mg Amino Acids (Prosource No Carb Liquid Pkt) 30 ml PO BID@0800,1730 [facility] Last Admin: 01/28/18 17:03 Dose: 30 ml Amlodipine Besylate (Norvasc -) 5 mg PO DAILY [facility] Last Admin: 01/28/18 10:04 Dose: 5 mg Ascorbic Acid (Vitamin C -) 500 mg PO BID [facility] Last Admin: 01/28/18 22:01 Dose: 500 mg Atorvastatin Calcium (Lipitor -) 20 mg PO HS [facility] Last Admin: 01/28/18 22:00 Dose: 20 mg Calcium Carbonate/Cholecalciferol (Os-Elias 500+D -) 2 tab PO DAILY [facility] Last Admin: 01/28/18 13:44 Dose: 2 tab Cyanocobalamin (Vitamin B12 Injection -) 1,000 mcg IM DAILY [facility] Last Admin: 01/28/18 13:44 Dose: 1,000 mcg Heparin Sodium (Porcine) (Heparin -) 5,000 unit SQ BID [facility] Last Admin: 01/28/18 22:00 Dose: 5,000 unit Sodium Chloride (Normal Saline -) 1,000 mls @ 83 mls/hr IV ASDIR [facility] Last Admin: 01/29/18 02:44 Dose: 83 mls/hr Ceftriaxone Sodium 1 gm/ (Dextrose) 50 mls @ 100 mls/hr IVPB DAILY [facility] Last Admin: 01/28/18 10:04 Dose: 100 mls/hr Insulin Aspart (Novolog Vial Sliding Scale -) 1 vial SQ ACHS [facility]; Protocol Last Admin: 01/29/18 06:14 Dose: 2 units Morphine Sulfate (Morphine Sulfate) 1 mg IVPUSH Q6H PRN PRN Reason: PAIN LEVEL 7 - 10 Last Admin: 01/29/18 02:41 Dose: 1 mg Multivitamins/Minerals/Vitamin C (Tab-A-Vit -) 1 tab PO DAILY [facility] Last Admin: 01/28/18 13:44 Dose: 1 tab Tramadol HCl (Ultram -) 50 mg PO Q8H PRN PRN Reason: PAIN LEVEL 4 - 6 Last Admin: 01/28/18 13:44 Dose: 50 mg Valsartan (Diovan -) 160 mg PO DAILY [facility] Last Admin: 01/28/18 10:04 Dose: 160 mg Zinc Sulfate (Orazinc -) 220 mg PO BID [facility] Last Admin: 01/28/18 22:00 Dose: 220 mg - Objective Vital Signs: Vital Signs Temperature 97.9 F 01/29/18 05:31 Pulse Rate 80 01/29/18 05:31 Respiratory Rate 18 01/29/18 05:31 Blood Pressure 140/62 01/29/18 05:31 O2 Sat by Pulse Oximetry (%) 98 01/28/18 21:00 Constitutional: Yes: No Distress, Calm, Cachectic Cardiovascular: Yes: Regular Rate and Rhythm Respiratory: Yes: Regular Gastrointestinal: Yes: Normal Bowel Sounds, Soft Musculoskeletal: Yes: Muscle Weakness Edema: No Peripheral Pulses WNL: Yes Neurological: Yes: Alert, Pre-Existing Deficit Labs: CBC, BMP 01/28/18 07:45 01/28/18 07:45 INR, PTT INR 0.97 (0.82-1.09) 01/27/18 13:45 Problem List - Problems (1) Pubic ramus fracture Assessment/Plan: -Seen by ortho -Physical therapy -[place] [facility] upon discharge -Pain management, acetaminophen 650 mg PO Q6H PRN for pain scale 1-3 -Tramadol 50 mg po Q8H PRN for pain scale 4-6 -Morphine 1 mg IVP Q6H PRN for pain scale 7-10 Code(s): S32.599A - OTH FRACTURE OF UNSP PUBIS, INIT ENCNTR FOR CLOSED FRACTURE (2) Status post fall Assessment/Plan: -Physical therapy -SNF Code(s): Z91.81 - HISTORY OF FALLING (3) Diabetes Assessment/Plan: on Insulin sliding scale -BGM -Diabetic diet -RD consult Code(s): E11.9 - TYPE 2 DIABETES MELLITUS WITHOUT COMPLICATIONS (4) Anemia Assessment/Plan: -Vit B12 def-replenish -Iron profile pending -Stool OB pending -Thyroid profile pending Code(s): D64.9 - ANEMIA, UNSPECIFIED (5) Dementia Code(s): F03.90 - UNSPECIFIED DEMENTIA WITHOUT BEHAVIORAL DISTURBANCE (6) Severe protein-calorie malnutrition Assessment/Plan: -RD consult -High clorie diet -Glucerna TID -Prosource TID -multivitamin Code(s): E43 - UNSPECIFIED SEVERE PROTEIN-CALORIE MALNUTRITION Assessment/Plan see problem list DVT prophylaxis Physical therapy
[2018-01-29 09:16] LABS: BASO % 0.4 % (0-2.0); HEMATOCRIT 29.8 % (32.4-45.2); HEMOGLOBIN 9.8 GM/dL (10.7-15.3); MCH 23.9 pg (25.7-33.7); MCHC 32.9 g/dl (32.0-36.0); MEAN CELL VOLUME 72.8 fl (80-96); MEAN PLT VOLUME 10.7 fl (7.5-11.1); NEUT % 60.6 % (42.8-82.8); PLATELET COUNT 79 K/MM3 (134-434); RDW 14.9 % (11.6-15.6); WHITE BLOOD COUNT 3.7 K/mm3 (4.0-10.0)
[2018-01-29 09:57] LABS: CHLORIDE 108 mmol/L (98-107); POTASSIUM 3.7 mmol/L (3.5-5.1); SODIUM 141 mmol/L (136-145)
[2018-01-29] MEDS ORDERED: cefTRIAXone SODIUM 1 GM VIAL ONE (09:58)
[2018-01-29] MEDS ORDERED: DEXTROSE 5%-WATER - 50 ML IVPB ONE (09:58)
[2018-01-29] MEDS: MULTIVITAMINS (DAILY MVI) TABLET (FP) PO SCH (10:00)
[2018-01-29] MEDS: CALCIUM 500MG/VIT-D 200 UNITS COMBO TABLET (FP) PO SCH (10:05)
[2018-01-29] MEDS: CEFTRIAXONE 1 GM in DEXTROSE 5%-WATER - 50 ML IVPB SCH (10:05)
[2018-01-29] MEDS: VALSARTAN 160 MG TABLET (UD) PO SCH (10:06)
[2018-01-29] MEDS: ZINC SULFATE 220 MG CAPSULE (FP) PO SCH ×2 (10:06→22:00)
[2018-01-29] MEDS: CYANOCOBALAMIN (VITAMIN B-12) 1000 MCG/1 ML VIAL IM SCH (10:06)
[2018-01-29] MEDS: amLODIPine BESYLATE 5 MG TABLET (FP) PO SCH (10:06)
[2018-01-29] MEDS: ASCORBIC ACID 500 MG TABLET (FP) PO SCH ×2 (10:06→22:00)
[2018-01-29] MEDS: HEPARIN NA (PORCINE) 5,000 UNITS/ML 1ML VIAL SQ SCH ×2 (10:07→22:00)
--- NOTE | 2018-01-29 10:26 | PN ---
Progress Note, Physician Chief Complaint: ID Recent events noted re fracture of pubic ramus No fevers noted Alert - Current Medication List Current Medications: Active Medications Acetaminophen (Tylenol -) 650 mg PO Q6H PRN PRN Reason: PAIN LEVEL 1 - 3 Last Admin: 01/28/18 17:03 Dose: 650 mg Amino Acids (Prosource No Carb Liquid Pkt) 30 ml PO BID@0800,1730 [facility] Last Admin: 01/28/18 17:03 Dose: 30 ml Amlodipine Besylate (Norvasc -) 5 mg PO DAILY [facility] Last Admin: 01/28/18 10:04 Dose: 5 mg Ascorbic Acid (Vitamin C -) 500 mg PO BID [facility] Last Admin: 01/28/18 22:01 Dose: 500 mg Atorvastatin Calcium (Lipitor -) 20 mg PO HS [facility] Last Admin: 01/28/18 22:00 Dose: 20 mg Calcium Carbonate/Cholecalciferol (Os-Elias 500+D -) 2 tab PO DAILY [facility] Last Admin: 01/28/18 13:44 Dose: 2 tab Cyanocobalamin (Vitamin B12 Injection -) 1,000 mcg IM DAILY [facility] Last Admin: 01/28/18 13:44 Dose: 1,000 mcg Heparin Sodium (Porcine) (Heparin -) 5,000 unit SQ BID [facility] Last Admin: 01/28/18 22:00 Dose: 5,000 unit Sodium Chloride (Normal Saline -) 1,000 mls @ 83 mls/hr IV ASDIR [facility] Last Admin: 01/29/18 02:44 Dose: 83 mls/hr Ceftriaxone Sodium 1 gm/ (Dextrose) 50 mls @ 100 mls/hr IVPB DAILY [facility] Last Admin: 01/28/18 10:04 Dose: 100 mls/hr Insulin Aspart (Novolog Vial Sliding Scale -) 1 vial SQ ACHS [facility]; Protocol Last Admin: 01/29/18 06:14 Dose: 2 units Morphine Sulfate (Morphine Sulfate) 1 mg IVPUSH Q6H PRN PRN Reason: PAIN LEVEL 7 - 10 Last Admin: 01/29/18 02:41 Dose: 1 mg Multivitamins/Minerals/Vitamin C (Tab-A-Vit -) 1 tab PO DAILY [facility] Last Admin: 01/28/18 13:44 Dose: 1 tab Tramadol HCl (Ultram -) 50 mg PO Q8H PRN PRN Reason: PAIN LEVEL 4 - 6 Last Admin: 01/28/18 13:44 Dose: 50 mg Valsartan (Diovan -) 160 mg PO DAILY [facility] Last Admin: 01/28/18 10:04 Dose: 160 mg Zinc Sulfate (Orazinc -) 220 mg PO BID [facility] Last Admin: 01/28/18 22:00 Dose: 220 mg - Objective Vital Signs: Vital Signs Temperature 97.9 F 01/29/18 05:31 Pulse Rate 80 01/29/18 05:31 Respiratory Rate 18 01/29/18 05:31 Blood Pressure 140/62 01/29/18 05:31 O2 Sat by Pulse Oximetry (%) 98 01/28/18 21:00 Neck: Yes: WNL, Supple Cardiovascular: Yes: Regular Rate and Rhythm, S1, S2 Respiratory: Yes: WNL, Regular, CTA Bilaterally Gastrointestinal: Yes: Soft. No: Tenderness Labs: CBC, BMP 01/29/18 08:38 01/29/18 08:38 INR, PTT INR 0.97 (0.82-1.09) 01/27/18 13:45 Problem List - Problems (1) Dementia Code(s): F03.90 - UNSPECIFIED DEMENTIA WITHOUT BEHAVIORAL DISTURBANCE (2) Altered mental status Code(s): R41.82 - ALTERED MENTAL STATUS, UNSPECIFIED Qualifiers: Altered mental status type: unspecified Qualified Code(s): R41.82 - Altered mental status, unspecified (3) Fever Code(s): R50.9 - FEVER, UNSPECIFIED Qualifiers: Fever type: unspecified Qualified Code(s): R50.9 - Fever, unspecified (4) Hydronephrosis Code(s): N13.30 - UNSPECIFIED HYDRONEPHROSIS Qualifiers: Hydronephrosis type: unspecified Qualified Code(s): N13.30 - Unspecified hydronephrosis Assessment/Plan Microbiology 01/27/18 13:45 Urine - Urine - Catheterized Urine Culture - Final NO GROWTH OBTAINED 01/27/18 13:45 Blood - Peripheral Venous Blood Culture - Preliminary NO GROWTH OBTAINED AFTER 24 HOURS, INCUBATION TO CONTINUE FOR 4 DAYS. 01/27/18 13:45 Blood - Peripheral Venous Blood Culture - Preliminary NO GROWTH OBTAINED AFTER 24 HOURS, INCUBATION TO CONTINUE FOR 4 DAYS. Laboratory Tests 01/28/18 01/28/18 01/29/18 07:45 07:45 08:38 WBC 3.7 L Hgb 9.8 L Hct 29.8 L Plt Count 79 L D BUN 19 H Creatinine 0.5 L Creat Clearance w eGFR > 60 RPR Titer Nonreactive Assessment No documented infection no fever cultures neg Plan Will stop antibiotics Anthony CALLE
[2018-01-29 11:16] LABS: ALK PHOS 54 U/L (45-117); ANION GAP 8 (8-16); BILIRUBIN,TOTAL 0.8 mg/dL (0.2-1.0); BLOOD UREA NITROGEN 21 mg/dL (7-18); CALCIUM 8.3 mg/dL (8.5-10.1); CO2 25 mmol/L (21-32); CREATININE 0.6 mg/dL (0.55-1.02); GLUCOSE,RANDOM 150 mg/dL (74-106); SGOT/AST 15 U/L (15-37); SGPT/ALT 16 U/L (12-78); TOT PROT 5.8 g/dl (6.4-8.2)
[2018-01-29 12:02] VITALS: BMI 12.4
[2018-01-29] MEDS ORDERED: INSULIN (NOVOLOG) ASPART 100 UNITS/ML 10ML VIAL ONE ×2 (12:11→17:36)
--- NOTE | 2018-01-29 12:20 | CON.GU ---
Consult Consult Specialty:: Referred by:: medicine Reason for Consultation:: bilateral UPJ obstruction - History of Present Illness Chief Complaint: bilateral UPJ obstruction History of Present Illness: 82 year old woman with dementia who is admitted with right lower quadrant pain/ No history of renal problems according to her daughter and her . She has incidentally found bilateral UPJ obstructions on CT scan. 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 Cardio/Vascular: Yes: HTN, Hyperlipdemia Renal/: No: Renal Failure, Renal Inusuff, BPH, Cancer, Hematuria, Hemodialysis , Neurogenic Bladder, Renal Calculi, UTI, Other Endocrine: Yes: Diabetes Mellitus - Past Surgical History Past Surgical History: Yes: None - Alcohol/Substance Use Hx Alcohol Use: No History of Substance Use: reports: None - Smoking History Smoking history: Never smoked Aproximately how many cigarettes per day: 0 - Social History ADL: Family Assistance History of Recent Travel: No Home Medications - Allergies Allergies/Adverse Reactions: Allergies Allergy/AdvReac Type Severity Reaction Status Date / Time No Known Allergies Allergy Verified 01/27/18 13:39 - Home Medications Home Medications: Ambulatory Orders Amlodipine Bes/Olmesartan Med [Ant 5-20 mg Tablet] 1 tab PO DAILY 07/14/15 Aspirin [Aspirin EC] 81 mg PO DAILY 07/14/15 Atorvastatin Ca [Lipitor -] 20 mg PO DAILY 07/14/15 Linagliptin/Metformin HCl [Jentadueto 2.5 mg-500 mg Tab] 1 tab PO BID 07/14/15 Review of Systems - Review of Systems Gastrointestinal: reports: Abdominal Pain Genitourinary: reports: No Symptoms Physical Exam- Vital Signs: Vital Signs Temperature 97.9 F 01/29/18 05:31 Pulse Rate 80 01/29/18 05:31 Respiratory Rate 18 01/29/18 05:31 Blood Pressure 140/62 01/29/18 05:31 O2 Sat by Pulse Oximetry (%) 98 01/28/18 21:00 Renal/: No: Bladder Distention, CVA Tenderness - Left, CVA Tenderness - Right Labs: CBC, BMP 01/29/18 08:38 01/29/18 08:38 Imaging - Results Cat Scan: Report Reviewed Assessment/Plan 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 no further work up or treatment indicated.
[2018-01-29] MEDS: AMINO ACIDS/PROTEIN HYDROLYS 30 ML LIQUID.PKT PO SCH ×2 (14:57→22:00)
[2018-01-29] MEDS: ATORVASTATIN CA 20 MG TABLET (FP) PO SCH (22:00)
[2018-01-30] MEDS: SODIUM CHLORIDE 1,000 ML IV SCH (06:12)
[2018-01-30] MEDS: INSULIN SLIDING SCALE (NOVOLOG) 1 VIAL SQ SCH ×4 (06:13→21:34)
[2018-01-30] MEDS: AMINO ACIDS/PROTEIN HYDROLYS 30 ML LIQUID.PKT PO SCH ×3 (06:13→21:37)
[2018-01-30 06:41] LABS: SERUM IRON SATURATION 19 % (15-55); TOTAL IRON BINDING CAPACITY 206 ug/dL (250-450); UIBC 166 ug/dL (118-369)
--- NOTE | 2018-01-30 07:40 | PN ---
Progress Note, Physician Chief Complaint: s/p fall Pubic [place] fracture History of Present Illness: NAD -, daughter and son in law at bedside lethargic but arousable Seen by ortho, no surgical intervention recommended at this time Seen by id- no need for abx Seen by Physical therapy yesterday, did poorly - Current Medication List Current Medications: Active Medications Acetaminophen (Tylenol -) 650 mg PO Q6H PRN PRN Reason: PAIN LEVEL 1 - 3 Last Admin: 01/28/18 17:03 Dose: 650 mg Amino Acids (Prosource No Carb Liquid Pkt) 30 ml PO TID [facility] Last Admin: 01/30/18 06:13 Dose: 30 ml Amlodipine Besylate (Norvasc -) 5 mg PO DAILY [facility] Last Admin: 01/29/18 10:06 Dose: 5 mg Ascorbic Acid (Vitamin C -) 500 mg PO BID [facility] Last Admin: 01/29/18 22:00 Dose: 500 mg Atorvastatin Calcium (Lipitor -) 20 mg PO HS [facility] Last Admin: 01/29/18 22:00 Dose: 20 mg Calcium Carbonate/Cholecalciferol (Os-Elias 500+D -) 2 tab PO DAILY [facility] Last Admin: 01/29/18 10:05 Dose: 2 tab Cyanocobalamin (Vitamin B12 Injection -) 1,000 mcg IM DAILY [facility] Last Admin: 01/29/18 10:06 Dose: 1,000 mcg Heparin Sodium (Porcine) (Heparin -) 5,000 unit SQ BID [facility] Last Admin: 01/29/18 22:00 Dose: 5,000 unit Sodium Chloride (Normal Saline -) 1,000 mls @ 83 mls/hr IV ASDIR [facility] Last Admin: 01/30/18 06:12 Dose: 83 mls/hr Insulin Aspart (Novolog Vial Sliding Scale -) 1 vial SQ ACHS [facility]; Protocol Last Admin: 01/30/18 06:13 Dose: 2 units Morphine Sulfate (Morphine Sulfate) 1 mg IVPUSH Q6H PRN PRN Reason: PAIN LEVEL 7 - 10 Last Admin: 01/29/18 02:41 Dose: 1 mg Multivitamins/Minerals/Vitamin C (Tab-A-Vit -) 1 tab PO DAILY [facility] Last Admin: 01/29/18 10:00 Dose: 1 tab Tramadol HCl (Ultram -) 50 mg PO Q8H PRN PRN Reason: PAIN LEVEL 4 - 6 Last Admin: 01/28/18 13:44 Dose: 50 mg Valsartan (Diovan -) 160 mg PO DAILY [facility] Last Admin: 01/29/18 10:06 Dose: 160 mg Zinc Sulfate (Orazinc -) 220 mg PO BID [facility] Last Admin: 01/29/18 22:00 Dose: 220 mg - Objective Vital Signs: Vital Signs Temperature 98.3 F 01/30/18 05:36 Pulse Rate 98 H 01/30/18 05:36 Respiratory Rate 20 01/30/18 05:36 Blood Pressure 148/80 01/30/18 05:36 O2 Sat by Pulse Oximetry (%) 98 01/29/18 21:00 Constitutional: Yes: No Distress, Calm, Cachectic Cardiovascular: Yes: Regular Rate and Rhythm Respiratory: Yes: Regular Gastrointestinal: Yes: Normal Bowel Sounds, Soft Musculoskeletal: Yes: Muscle Weakness Edema: No Peripheral Pulses WNL: Yes Neurological: Yes: Alert, Pre-Existing Deficit Labs: CBC, BMP 01/29/18 08:38 01/29/18 08:38 INR, PTT INR 0.97 (0.82-1.09) 01/27/18 13:45 Problem List - Problems (1) Anemia Assessment/Plan: -Vit B12 def-replenish -Iron profile normal -Stool OB pending -Thyroid profile normal Code(s): D64.9 - ANEMIA, UNSPECIFIED (2) Dementia Code(s): F03.90 - UNSPECIFIED DEMENTIA WITHOUT BEHAVIORAL DISTURBANCE (3) Diabetes Assessment/Plan: on Insulin sliding scale -BGM -Diabetic diet -RD consult Code(s): E11.9 - TYPE 2 DIABETES MELLITUS WITHOUT COMPLICATIONS (4) Pubic ramus fracture Assessment/Plan: -Seen by ortho -Physical therapy -likely SNF upon discharge -Pain management, acetaminophen 650 mg PO Q6H PRN for pain scale 1-3 -Tramadol 50 mg po Q8H PRN for pain scale 4-6 -Morphine 1 mg IVP Q6H PRN for pain scale 7-10 Code(s): S32.599A - OTH FRACTURE OF UNSP PUBIS, INIT ENCNTR FOR CLOSED FRACTURE (5) Severe protein-calorie malnutrition Assessment/Plan: -RD consult -High clorie diet -Glucerna TID -Prosource TID -multivitamin Code(s): E43 - UNSPECIFIED SEVERE PROTEIN-CALORIE MALNUTRITION (6) Status post fall Assessment/Plan: -Physical therapy -SNF Code(s): Z91.81 - HISTORY OF FALLING (7) Hydronephrosis Assessment/Plan: By chance finding -Seen by , no intervention recommended, likely congenital Code(s): N13.30 - UNSPECIFIED HYDRONEPHROSIS Qualifiers: Hydronephrosis type: unspecified Qualified Code(s): N13.30 - Unspecified hydronephrosis Assessment/Plan see problem list DVT prophylaxis
[2018-01-30] MEDS: amLODIPine BESYLATE 5 MG TABLET (FP) PO SCH (09:26)
[2018-01-30] MEDS: CALCIUM 500MG/VIT-D 200 UNITS COMBO TABLET (FP) PO SCH (09:27)
[2018-01-30] MEDS: VALSARTAN 160 MG TABLET (UD) PO SCH (09:27)
[2018-01-30] MEDS: ASCORBIC ACID 500 MG TABLET (FP) PO SCH ×2 (09:27→21:37)
[2018-01-30] MEDS: HEPARIN NA (PORCINE) 5,000 UNITS/ML 1ML VIAL SQ SCH ×2 (09:27→21:34)
[2018-01-30] MEDS: CYANOCOBALAMIN (VITAMIN B-12) 1000 MCG/1 ML VIAL IM SCH (09:27)
[2018-01-30] MEDS: ZINC SULFATE 220 MG CAPSULE (FP) PO SCH ×2 (09:27→21:37)
[2018-01-30] MEDS: MULTIVITAMINS (DAILY MVI) TABLET (FP) PO SCH (09:27)
[2018-01-30] MEDS ORDERED: INSULIN (NOVOLOG) ASPART 100 UNITS/ML 10ML VIAL ONE (17:04)
[2018-01-30] MEDS: traMADol HCL 50 MG TABLET PO PRN (17:29)
[2018-01-30] MEDS: ATORVASTATIN CA 20 MG TABLET (FP) PO SCH (21:37)
[2018-01-31] MEDS: SODIUM CHLORIDE 1,000 ML IV SCH (04:40)
[2018-01-31] MEDS: morphine SULFATE 4 MG/ML VIAL IVPUSH PRN (05:58)
[2018-01-31] MEDS: INSULIN SLIDING SCALE (NOVOLOG) 1 VIAL SQ SCH ×4 (06:00→21:33)
[2018-01-31] MEDS: AMINO ACIDS/PROTEIN HYDROLYS 30 ML LIQUID.PKT PO SCH ×3 (06:00→21:31)
--- NOTE | 2018-01-31 08:56 | PN ---
Progress Note, Physician Chief Complaint: ID Seen by urology NAD Nonverbal No fever - Current Medication List Current Medications: Active Medications Acetaminophen (Tylenol -) 650 mg PO Q6H PRN PRN Reason: PAIN LEVEL 1 - 3 Last Admin: 01/28/18 17:03 Dose: 650 mg Amino Acids (Prosource No Carb Liquid Pkt) 30 ml PO TID [facility] Last Admin: 01/31/18 06:00 Dose: 30 ml Amlodipine Besylate (Norvasc -) 5 mg PO DAILY [facility] Last Admin: 01/30/18 09:26 Dose: 5 mg Ascorbic Acid (Vitamin C -) 500 mg PO BID [facility] Last Admin: 01/30/18 21:37 Dose: 500 mg Atorvastatin Calcium (Lipitor -) 20 mg PO HS [facility] Last Admin: 01/30/18 21:37 Dose: 20 mg Calcium Carbonate/Cholecalciferol (Os-Elias 500+D -) 2 tab PO DAILY [facility] Last Admin: 01/30/18 09:27 Dose: 2 tab Cyanocobalamin (Vitamin B12 Injection -) 1,000 mcg IM DAILY [facility] Last Admin: 01/30/18 09:27 Dose: 1,000 mcg Heparin Sodium (Porcine) (Heparin -) 5,000 unit SQ BID [facility] Last Admin: 01/30/18 21:34 Dose: 5,000 unit Sodium Chloride (Normal Saline -) 1,000 mls @ 83 mls/hr IV ASDIR [facility] Last Admin: 01/31/18 04:40 Dose: 83 mls/hr Insulin Aspart (Novolog Vial Sliding Scale -) 1 vial SQ ACHS [facility]; Protocol Last Admin: 01/31/18 06:00 Dose: 8 units Morphine Sulfate (Morphine Sulfate) 1 mg IVPUSH Q6H PRN PRN Reason: PAIN LEVEL 7 - 10 Last Admin: 01/31/18 05:58 Dose: 1 mg Multivitamins/Minerals/Vitamin C (Tab-A-Vit -) 1 tab PO DAILY [facility] Last Admin: 01/30/18 09:27 Dose: 1 tab Tramadol HCl (Ultram -) 50 mg PO Q8H PRN PRN Reason: PAIN LEVEL 4 - 6 Last Admin: 01/30/18 17:29 Dose: 50 mg Valsartan (Diovan -) 160 mg PO DAILY [facility] Last Admin: 01/30/18 09:27 Dose: 160 mg Zinc Sulfate (Orazinc -) 220 mg PO BID [facility] Last Admin: 01/30/18 21:37 Dose: 220 mg - Objective Vital Signs: Vital Signs Temperature 98.8 F 01/31/18 07:25 Pulse Rate 120 H 01/31/18 07:25 Respiratory Rate 21 01/31/18 07:25 Blood Pressure 147/105 01/31/18 07:25 O2 Sat by Pulse Oximetry (%) 98 01/30/18 21:00 Constitutional: Yes: No Distress HENT: Yes: WNL, Atraumatic Neck: Yes: WNL, Supple Cardiovascular: Yes: Regular Rate and Rhythm, S1, S2. No: Murmur Respiratory: Yes: WNL, Regular, CTA Bilaterally Gastrointestinal: Yes: WNL, Normal Bowel Sounds, Soft. No: Tenderness, Tenderness, Rebound Extremities: No: Cold, Cool Edema: No Labs: CBC, BMP 01/29/18 08:38 01/29/18 08:38 INR, PTT INR 0.97 (0.82-1.09) 01/27/18 13:45 Problem List - Problems (1) Dementia Code(s): F03.90 - UNSPECIFIED DEMENTIA WITHOUT BEHAVIORAL DISTURBANCE (2) Altered mental status Code(s): R41.82 - ALTERED MENTAL STATUS, UNSPECIFIED Qualifiers: Altered mental status type: unspecified Qualified Code(s): R41.82 - Altered mental status, unspecified (3) Fever Code(s): R50.9 - FEVER, UNSPECIFIED Qualifiers: Fever type: unspecified Qualified Code(s): R50.9 - Fever, unspecified (4) Hydronephrosis Code(s): N13.30 - UNSPECIFIED HYDRONEPHROSIS Qualifiers: Hydronephrosis type: unspecified Qualified Code(s): N13.30 - Unspecified hydronephrosis Assessment/Plan Microbiology 01/27/18 13:45 Urine - Urine - Catheterized Urine Culture - Final NO GROWTH OBTAINED 01/27/18 13:45 Blood - Peripheral Venous Blood Culture - Preliminary NO GROWTH OBTAINED AFTER 72 HOURS, INCUBATION TO CONTINUE FOR 2 DAYS. 01/27/18 13:45 Blood - Peripheral Venous Blood Culture - Preliminary NO GROWTH OBTAINED AFTER 72 HOURS, INCUBATION TO CONTINUE FOR 2 DAYS. Laboratory Tests 01/29/18 01/29/18 08:38 08:38 WBC 3.7 L Hgb 9.8 L Hct 29.8 L Plt Count 79 L D BUN 21 H Creatinine 0.6 Assessment Fracture pubic arora No infection found Plan Discharge planning Anthony CALLE
[2018-01-31] MEDS ORDERED: PT OWN MED DRAWER 7, Y5N ONE (10:37)
[2018-01-31] MEDS: amLODIPine BESYLATE 5 MG TABLET (FP) PO SCH (10:40)
[2018-01-31] MEDS: CALCIUM 500MG/VIT-D 200 UNITS COMBO TABLET (FP) PO SCH (10:40)
[2018-01-31] MEDS: VALSARTAN 160 MG TABLET (UD) PO SCH (10:40)
[2018-01-31] MEDS: CYANOCOBALAMIN (VITAMIN B-12) 1000 MCG/1 ML VIAL IM SCH (10:41)
[2018-01-31] MEDS: HEPARIN NA (PORCINE) 5,000 UNITS/ML 1ML VIAL SQ SCH ×2 (10:41→21:32)
[2018-01-31] MEDS: ASCORBIC ACID 500 MG TABLET (FP) PO SCH ×2 (10:41→21:32)
[2018-01-31] MEDS: ZINC SULFATE 220 MG CAPSULE (FP) PO SCH ×2 (10:41→21:32)
[2018-01-31] MEDS: MULTIVITAMINS (DAILY MVI) TABLET (FP) PO SCH (10:41)
[2018-01-31] MEDS ORDERED: INSULIN (NOVOLOG) ASPART 100 UNITS/ML 10ML VIAL ONE (11:08)
--- NOTE | 2018-01-31 13:50 | DS ---
Physical Examination Vital Signs: Vital Signs Temperature 98.8 F 01/31/18 07:25 Pulse Rate 106 H 01/31/18 10:39 Respiratory Rate 21 01/31/18 07:25 Blood Pressure 122/62 01/31/18 10:39 O2 Sat by Pulse Oximetry (%) 98 01/30/18 21:00 Constitutional: Yes: Mild Distress Eyes: Yes: WNL HENT: Yes: WNL, Other Cardiovascular: Yes: WNL Respiratory: Yes: WNL Gastrointestinal: Yes: WNL Renal/: Yes: WNL Musculoskeletal: Yes: Muscle Weakness Extremities: Yes: Other Edema: No Peripheral Pulses WNL: Yes Integumentary: Yes: WNL Wound/Incision: Yes: Clean/Dry Neurological: Yes: Confusion, Pre-Existing Deficit ...Motor Strength: LLE, RLE Psychiatric: Yes: Other Labs: CBC, BMP 01/29/18 08:38 01/29/18 08:38 Discharge Summary Reason For Visit: FEVER,ALTERED MENTAL STATUS Current Active Problems Altered mental status (Acute) Anemia (Acute) Dementia (Acute) Diabetes (Acute) Fever (Acute) Pubic ramus fracture (Acute) Severe protein-calorie malnutrition (Acute) Status post fall (Acute) Procedures: Principal: CT SCAN ABD/PELVIS/BRAIN Hospital Course: ADMITTED ACUTE PUBI RAMI FRACTURE, SUPPORTIVE CARE, NON-INVASIVE TREATMENT, DEMENTIA, PT AND ANALGESICS STOP ABX Condition: Fair - Instructions Diet, Activity, Other Instructions: TOLERATED DYSPHAGIA PRECAUTIONS LOW SODIUM PT EVAL AND NEUROLOGY FOLLOW UP Referrals: Judson Forman [Primary Care Provider] - Disposition: ALF FACILITY - Home Medications Comprehensive Discharge Medication List: Ambulatory Orders Amlodipine Bes/Olmesartan Med [Ant 5-20 mg Tablet] 1 tab PO DAILY 07/14/15 Aspirin [Aspirin EC] 81 mg PO DAILY 07/14/15 Atorvastatin Ca [Lipitor -] 20 mg PO DAILY 07/14/15 Linagliptin/Metformin HCl [Jentadueto 2.5 mg-500 mg Tab] 1 tab PO BID 07/14/15
[2018-01-31] MEDS: LIDOCAINE 5% TOPICAL PATCH TP SCH (15:20)
[2018-01-31] MEDS: traMADol HCL 50 MG TABLET PO PRN (15:29)
[2018-01-31] MEDS: ATORVASTATIN CA 20 MG TABLET (FP) PO SCH (21:32)
[2018-01-31] MEDS ORDERED: LIDOCAINE PATCH REMOVAL MC SCH (22:00)
[2018-02-01] MEDS ORDERED: PT OWN MED DRAWER 7, Y5N ONE (05:46)
[2018-02-01] MEDS: AMINO ACIDS/PROTEIN HYDROLYS 30 ML LIQUID.PKT PO SCH ×2 (06:13→13:15)
[2018-02-01] MEDS: INSULIN SLIDING SCALE (NOVOLOG) 1 VIAL SQ SCH ×3 (06:15→17:16)
[2018-02-01] MEDS: ASCORBIC ACID 500 MG TABLET (FP) PO SCH (09:20)
[2018-02-01] MEDS: amLODIPine BESYLATE 5 MG TABLET (FP) PO SCH (09:20)
[2018-02-01] MEDS: MULTIVITAMINS (DAILY MVI) TABLET (FP) PO SCH (09:20)
[2018-02-01] MEDS: CALCIUM 500MG/VIT-D 200 UNITS COMBO TABLET (FP) PO SCH (09:20)
[2018-02-01] MEDS: LIDOCAINE 5% TOPICAL PATCH TP SCH (09:21)
[2018-02-01] MEDS: ZINC SULFATE 220 MG CAPSULE (FP) PO SCH (09:21)
[2018-02-01] MEDS: traMADol HCL 50 MG TABLET PO PRN (09:21)
[2018-02-01] MEDS: CYANOCOBALAMIN (VITAMIN B-12) 1000 MCG/1 ML VIAL IM SCH (09:21)
[2018-02-01] MEDS: VALSARTAN 160 MG TABLET (UD) PO SCH (09:21)
[2018-02-01] MEDS: HEPARIN NA (PORCINE) 5,000 UNITS/ML 1ML VIAL SQ SCH (09:21)
[2018-02-01 14:47] VITALS: BP 107/57; PULSE 111; TEMP 98.7
--- NOTE | 2018-02-01 16:43 | PN ---
Progress Note (short form) - Note Progress Note: awaiting auth# from insurance company patient is comfortable and stable forms completed for snf
== END 2018-02-01 17:58 | DRG 535 ==
LOC: JER 13:16 → JERBED 17:44 → J6S 20:10
PROVIDERS: ADMIT Family Medicine; ATTEND Family Medicine
DX: S32.501A Unspecified fracture of right pubis, initial encounter for closed fracture (principal); G93.41 Metabolic encephalopathy; E43 Unspecified severe protein-calorie malnutrition; N39.0 Urinary tract infection, site not specified; N13.1 Hydronephrosis with ureteral stricture, not elsewhere classified; R64 Cachexia; Z68.1 Body mass index [BMI] 19.9 or less, adult; F03.90 Unspecified dementia, unspecified severity, without behavioral disturbance, psychotic disturbance, mood disturbance, and anxiety; I10 Essential (primary) hypertension; E11.9 Type 2 diabetes mellitus without complications; Z86.73 Personal history of transient ischemic attack (TIA), and cerebral infarction without residual deficits; E78.5 Hyperlipidemia, unspecified; R50.9 Fever, unspecified; D69.6 Thrombocytopenia, unspecified; D64.9 Anemia, unspecified; R16.1 Splenomegaly, not elsewhere classified; W19.XXXA Unspecified fall, initial encounter; Y93.89 Activity, other specified; Y92.89 Other specified places as the place of occurrence of the external cause; Y99.8 Other external cause status; Z79.84 Long term (current) use of oral hypoglycemic drugs
CPT/HCPCS: 36415; 70450-TC; 71045-TC-FY; 73523-TC-FY; 74177-TC; 76775-TC; 80053; 81003; 81015; 82607; 82728; 82746; 82803; 82962; 83036; 83540; 83550; 83605; 83735; 84100; 84439; 84443; 84484; 85025; 85610; 85730; 86593; 87040; 87086; 93005; 93010; 97116-GP; 97162-GP; 99285-25; J0131; J1644; J7030

== ENCOUNTER 2019-02-08 12:43 | Inpatient (IN) | payer OTHER ==
--- NOTE | 2019-02-08 14:01 | PDOC ---
History of Present Illness - General Chief Complaint: Wound Stated Complaint: SENT BY PCP/FOOT SWOLLEN Time Seen by Provider: 02/08/19 14:01 - History of Present Illness Initial Comments: 02/08/19 14:28 PCP: Dr. Forman Human Resources Records Clerk: Dr. Ríos ) Vascular surgeon: Dr. Zhu. Patient has advanced dementia, history obtained from patient's . Patient is an 83 year old female sent by her Human Resources Records Clerk for the evaluation of infected left great toe and second digit. As per the patient's , he noticed blackish discoloration of the left great toe and second digit. Patient went to her oven operator for routine check up today and was sent here to the ED for the treatment of infected left digits. No fever, chills, rigors, sweating, chest pain, sob, cough, loc, seizures or any focal neurological deficits. Bowel/Bladder habit normal. Sleep/Appetite normal. reports that patient was seen by Dr. Zhu Past Medical history: HTN, HLD, DM, Advanced dementia, CVA in 1992, Right sup/ inf pubic ramus fx Allergies: NKDA Past Surgical History: None Social history: Lives with at home. Cared by her Smoking/Alcohol/Drugs: Denies Family Hx: Non contributory. Past History - Travel Traveled outside of the country in the last 30 days: Yes Close contact w/someone who was outside of country & ill: No - Past Medical History Allergies/Adverse Reactions: Allergies Allergy/AdvReac Type Severity Reaction Status Date / Time No Known Allergies Allergy Verified 02/08/19 12:56 Home Medications: Ambulatory Orders Amlodipine Bes/Olmesartan Med [Amlodipine-Olmesartan 5-20 mg] 1 each PO DAILY Aspirin [Aspirin EC] 81 mg PO DAILY 02/08/19 Atorvastatin Ca [Lipitor] 20 mg PO HS 02/08/19 Insulin (Levemir) [Levemir Vial] 20 unit SQ DAILY 02/08/19 CVA: Yes (1996) COPD: No Dementia: Yes Diabetes: Yes HTN: Yes Hypercholesterolemia: Yes - Immunization History Immunization Up to Date: Yes - Suicide/Smoking/Psychosocial Hx Smoking Status: No Smoking History: Never smoked Have you smoked in the past 12 months: No Number of Cigarettes Smoked Daily: 0 Information on smoking cessation initiated: No Hx Alcohol Use: No Drug/Substance Use Hx: No Substance Use Type: None Review of Systems - Review of Systems Able to Perform ROS?: No Is the patient limited Divehi proficient: No *Physical Exam - Vital Signs Last Vital Signs Temp Pulse Resp BP Pulse Ox 98.4 F 88 18 118/53 L 99 02/08/19 12:51 02/08/19 12:51 02/08/19 12:51 02/08/19 12:51 02/08/19 12:51 - Physical Exam Comments: 02/08/19 14:37 General: Elderly female, cachetic, sleeping but arousable, in no acute distress. HEENT: No pallor or icterus. Chest: B/L lungs clear, no added sounds CVS: Regular rate, rhythm, S1, S2, no murmur Abdomen: Soft, non tender, no organomegaly, BS + Ext: Left Great toe and second digits--blackish discoloration, faint distal pulses Neuro: No facial droop, talks but non comprehensive. ED Treatment Course - LABORATORY CBC & Chemistry Diagram: 02/10/19 07:40 02/10/19 07:40 Medical Decision Making - Medical Decision Making 02/08/19 14:40 Patient is an 83 year old female sent by Dr. Ríos for evaluation of infected left foot. Differential diagnosis: Osteomyelitis, gangrene of the left great toe and second digit Will send CBC, CMP, UA, Coags, type and screen Will order one dose of Vanc and Zosyn. Once the labs are back, will place consult for Dr. Zuh. 02/08/19 16:17 Labs not significant for leukocytosis. Accepted by Dr. Marino for admission to Med-Surg. *DC/Admit/Observation/Transfer Diagnosis at time of Disposition: Gangrene - Referrals - Patient Instructions - Post Discharge Activity
--- NOTE | 2019-02-08 15:01 | PDOC ---
Documentation entered by Becca Lai SCRIBE, acting as scribe for Bashir Bustillos MD. Bashir Bustillos MD: This documentation has been prepared by the littleibe, Becca Lai SCRIBE, under my direction and personally reviewed by me in its entirety. I confirm that the documentation accurately reflects all work, treatment, procedures, and medical decision making performed by me. Attending Attestation - Resident Resident Name: Rosalee Azar - ED Attending Attestation I have performed the following: I have examined & evaluated the patient, The case was reviewed & discussed with the resident, I agree w/resident's findings & plan, Exceptions are as noted - HPI HPI: 02/08/19 14:50 The patient is an 83-year-old female, with a past medical history of HTN, HLD, DM, advanced dementia, CVA (in 1933), who was sent to the ED by her Power Press Supervisor ( Dr. Ríos) for evaluation of an infected LT great toe and LT 2nd toe. Patient s is at the bedside and is providing history. He reports that he noticed an area of black discoloration on both toes and took pt to juvenile probation officer today. Pt was subsequently sent to the ED for admission and evaluation for possible amputation by Dr. Zhu. denies any fevers, chills, cough, nausea, vomiting, diarrhea, or abdominal pain. Denies any chest pain, palpitations or shortness of breath. Denies any weakness, dizziness, or changes in strength or sensation. Power Press Supervisor: Dr. Ríos Vascular Surgeon: Dr. Zhu - Physicial Exam PE: 02/08/19 14:48 GENERAL: Awake, alert, and fully oriented, in no acute distress. HEAD: No signs of trauma EYES: PERRLA, EOMI, sclera anicteric, conjunctiva clear ENT: Auricles normal inspection, hearing grossly normal, nares patent, oropharynx clear without exudates. Moist mucosa NECK: Nontender, no stepoffs, Normal ROM, supple, no lymphadenopathy, JVD, or masses LUNGS: Breath sounds equal, clear to auscultation bilaterally. No wheezes, and no crackles HEART: Regular rate and rhythm, normal S1 and S2, no murmurs, rubs or gallops ABDOMEN: Soft, nontender, normoactive bowel sounds. No guarding, no rebound. No masses EXTREMITIES: + dry gangrene to L 1st and 2nd toes, foul smelling, no drainage NEUROLOGICAL: Cranial nerves II through XII intact. 5/5 strength and sensation in all extremities, Normal speech, normal cerebellar function SKIN: Warm, Dry, normal turgor, no rashes or lesions noted. - Medical Decision Making 02/08/19 15:02 83 F with gangrenous L 1st and 2nd toes, sent in for possible amputation with Dr. Zhu. - Labs - c/s Dr. Zhu
[2019-02-08 15:20] LABS: HEMATOCRIT 29.1 % (32.4-45.2); HEMOGLOBIN 9.5 GM/dL (10.7-15.3); MCH 23.8 pg (25.7-33.7); MCHC 32.6 g/dl (32.0-36.0); MEAN CELL VOLUME 73.2 fl (80-96); PLATELET COUNT 111 K/MM3 (134-434); RBC 3.98 M/mm3 (3.60-5.2); RDW 13.4 % (11.6-15.6); WHITE BLOOD COUNT 4.4 K/mm3 (4.0-10.0)
[2019-02-08 16:02] LABS: INR 0.97 (0.83-1.09); PROTHROMBIN TIME (PATIENT) 11.4 SEC (9.7-13.0)
[2019-02-08 16:07] LABS: BLOOD UREA NITROGEN 18.4 mg/dL (7-18); CREATININE 0.6 mg/dL (0.55-1.3); POTASSIUM 4.3 mmol/L (3.5-5.1)
[2019-02-08 16:08] LABS: ALBUMIN 3.5 g/dl (3.4-5.0); BILIRUBIN,TOTAL 0.6 mg/dL (0.2-1); CALCIUM 8.6 mg/dL (8.5-10.1); TOT PROT 6.7 g/dl (6.4-8.2)
[2019-02-08] MEDS ORDERED: VANCOMYCIN 1 GM in D5W (PRE-DOCKED) 1,000 MG/250 ML IVPB ONE (16:11)
[2019-02-08] MEDS ORDERED: PIPERACILLIN/TAZOB 3.375 GM 3.375 GM in DEXTROSE 5%-WATER - 50 ML IVPB ONE (16:12)
[2019-02-08] MEDS ORDERED: PIPERACILLIN/TAZOB 3.375 GM 3.375 GM/50 ML BAG IVPB ONE (16:31)
[2019-02-08] MEDS ORDERED: VANCOMYCIN 1 GRAM (PRE-DOCKED) 1,000 MG/250 ML BAG IVPB ONE (16:31)
[2019-02-08] MEDS ORDERED: amLODIPine BESYLATE 5 MG TABLET (FP) PO SCH (17:30)
--- NOTE | 2019-02-08 19:21 | HP ---
Admitting History and Physical - Primary Care Physician PCP: Judson Forman - Admission Chief Complaint: Gangrene L foot 2nd digit History of Present Illness: Patient is an 83 y/o female with past medical history of HTN, HLD, DM, advanced Dementia, CVA 1992. Patient was sent by sustainable design consultant due to gangrene L foot 2nd digit. Patient is poor informant due to dementia is giving history. Patient has been followed by Dr Zhu in the past and last visit was 2 months ago as per . He states the toe was not gangrene at that time. 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, TIA Cardiovascular: Yes: HTN, Hyperlipdemia Endocrine: Yes: Diabetes Mellitus - Past Surgical History Past Surgical History: Yes: None - Smoking History Smoking history: Never smoked Have you smoked in the past 12 months: No Aproximately how many cigarettes per day: 0 - Alcohol/Substance Use Hx Alcohol Use: No History of Substance Use: reports: None - Social History Usual Living Arrangement: Yes: With Spouse ADL: Family Assistance History of Recent Travel: No Home Medications - Allergies Allergies/Adverse Reactions: Allergies Allergy/AdvReac Type Severity Reaction Status Date / Time No Known Allergies Allergy Verified 02/08/19 12:56 - Home Medications Home Medications: Ambulatory Orders Amlodipine Bes/Olmesartan Med [Amlodipine-Olmesartan 5-20 mg] 1 each PO DAILY Aspirin [Aspirin EC] 81 mg PO DAILY 02/08/19 Atorvastatin Ca [Lipitor] 20 mg PO HS 02/08/19 Insulin (Levemir) [Levemir Vial] 20 unit SQ DAILY 02/08/19 Review of Systems Unable to obtain ROS, reason: unable 2/2 mental status Physical Examination Vital Signs: Vital Signs Temperature 98.4 F 02/08/19 12:51 Pulse Rate 62 02/08/19 17:21 Respiratory Rate 16 02/08/19 17:21 Blood Pressure 110/62 02/08/19 17:21 O2 Sat by Pulse Oximetry (%) 100 02/08/19 17:21 Constitutional: Yes: No Distress, Calm, Cachectic Eyes: Yes: Conjunctiva Clear HENT: Yes: Atraumatic Neck: Yes: Supple Cardiovascular: Yes: Regular Rate and Rhythm Respiratory: Yes: Regular, CTA Bilaterally Gastrointestinal: Yes: Normal Bowel Sounds, Soft Renal/: Yes: Incontinence Extremities: Yes: WNL Edema: No Integumentary: Yes: Erythema (L foot), Other (gangrene L foot second digit and anterior aspect and tip of L great toe) Neurological: Yes: Alert, Pre-Existing Deficit Psychiatric: Yes: Alert Labs: CBC, BMP 02/08/19 15:03 02/08/19 15:03 Imaging - Results X-ray: Report Reviewed Problem List - Problems (1) Gangrene of left foot Assessment/Plan: -Vascular and Podiatry consult -Arterial Doppler LLE -L foot xray shows no sign of fracture or subluxation -ID consult Code(s): I96 - GANGRENE, NOT ELSEWHERE CLASSIFIED (2) Dementia Assessment/Plan: -fall precaution -BOOKMAKER'S CLERK for swallow eval Code(s): F03.90 - UNSPECIFIED DEMENTIA WITHOUT BEHAVIORAL DISTURBANCE (3) Diabetes Assessment/Plan: -BGM ACHS -Levemir -HgA1c Code(s): E11.9 - TYPE 2 DIABETES MELLITUS WITHOUT COMPLICATIONS (4) Severe protein-calorie malnutrition Assessment/Plan: -Dietary consult -Ensure Code(s): E43 - UNSPECIFIED SEVERE PROTEIN-CALORIE MALNUTRITION (5) HTN (hypertension) Assessment/Plan: -Amlodipine -low Na Code(s): I10 - ESSENTIAL (PRIMARY) HYPERTENSION (6) HLD (hyperlipidemia) Assessment/Plan: -Atorvastatin Code(s): E78.5 - HYPERLIPIDEMIA, UNSPECIFIED Assessment/Plan see problem list dvt ppx
[2019-02-08] MEDS: ATORVASTATIN CA 20 MG TABLET (FP) PO SCH (21:22)
[2019-02-08] MEDS: HEPARIN NA (PORCINE) 5,000 UNITS/ML 1ML VIAL SQ SCH (21:22)
[2019-02-09] MEDS: INSULIN (LEVEMIR) 100 UNITS/ML UNITS SQ SCH (06:34)
[2019-02-09] MEDS ORDERED: INSULIN (NOVOLOG) ASPART 100 UNITS/ML 10ML VIAL ONE ×2 (06:49→21:12)
[2019-02-09] MEDS ORDERED: PT OWN MED DRAWER 7, Y5N ONE ×2 (06:50→18:44)
[2019-02-09 07:53] LABS: BASO % 0.6 % (0-2.0); HEMATOCRIT 31.9 % (32.4-45.2); HEMOGLOBIN 10.3 GM/dL (10.7-15.3); LYMPH % 36.6 % (8-40); MCH 23.6 pg (25.7-33.7); MCHC 32.5 g/dl (32.0-36.0); MEAN CELL VOLUME 72.7 fl (80-96); MONO % 4.5 % (3.8-10.2); NEUT % 58.3 % (42.8-82.8); PLATELET COUNT 116 K/MM3 (134-434); RBC 4.38 M/mm3 (3.60-5.2); RDW 13.4 % (11.6-15.6)
[2019-02-09 08:00] LABS: ALBUMIN 3.6 g/dl (3.4-5.0); BILIRUBIN,TOTAL 0.6 mg/dL (0.2-1); BLOOD UREA NITROGEN 12.9 mg/dL (7-18); CALCIUM 8.7 mg/dL (8.5-10.1); CREATININE 0.6 mg/dL (0.55-1.3); MAGNESIUM 2.6 mg/dL (1.8-2.4); POTASSIUM 4.2 mmol/L (3.5-5.1)
--- NOTE | 2019-02-09 08:39 | CONSULT ---
Consult - History of Present Illness History of Present Illness: 83 year old woman with dementia, hx PAD. She has had intervention on the right leg in the past. I saw her in August for right toe discoloration and arterial studies showed diffuse PAD in femoral and tibial vessels. Her brought her to ER with gangrene of left 1st and 2nd toes. She had been under the care of her paper machine back tender. She is not ambulatory. 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: Dementia, TIA Cardio/Vascular: Yes: HTN, Hyperlipdemia Endocrine: Yes: Diabetes Mellitus - Past Surgical History Past Surgical History: Yes: None - Alcohol/Substance Use Hx Alcohol Use: No History of Substance Use: reports: None - Smoking History Smoking history: Never smoked Have you smoked in the past 12 months: No Aproximately how many cigarettes per day: 0 - Social History ADL: Family Assistance History of Recent Travel: No Home Medications - Allergies Allergies/Adverse Reactions: Allergies Allergy/AdvReac Type Severity Reaction Status Date / Time No Known Allergies Allergy Verified 02/08/19 12:56 - Home Medications Home Medications: Ambulatory Orders Amlodipine Bes/Olmesartan Med [Amlodipine-Olmesartan 5-20 mg] 1 each PO DAILY Aspirin [Aspirin EC] 81 mg PO DAILY 02/08/19 Atorvastatin Ca [Lipitor] 20 mg PO HS 02/08/19 Insulin (Levemir) [Levemir Vial] 20 unit SQ DAILY 02/08/19 Physical Exam Vital Signs: Vital Signs Temperature 97.5 F L 02/09/19 06:17 Pulse Rate 85 02/09/19 06:17 Respiratory Rate 20 02/09/19 06:17 Blood Pressure 143/69 02/09/19 06:17 O2 Sat by Pulse Oximetry (%) 99 02/08/19 23:09 Extremities: Yes: Cool, Other (Necrosis of left 1st and 2nd toes. No erythema. No palpable pulses.) Edema: No Labs: CBC, BMP 02/09/19 06:55 02/09/19 06:55 Problem List - Problems (1) Gangrene of toe of left foot Assessment/Plan: Chronic PAD with gangrene, non-ambulatory patient. I will speak to family regarding treatment options including angiogram and amputation. Code(s): I96 - GANGRENE, NOT ELSEWHERE CLASSIFIED
[2019-02-09] MEDS ORDERED: INSULIN (LEVEMIR) 100 UNITS/ML UNITS SQ SCH (10:00)
[2019-02-09] MEDS: HEPARIN NA (PORCINE) 5,000 UNITS/ML 1ML VIAL SQ SCH ×2 (10:17→21:56)
[2019-02-09] MEDS: ASPIRIN COATED 81 MG TABLET.EC PO SCH (10:17)
[2019-02-09 10:35] LABS: ANISOCYTOSIS 0; MACROCYTOSIS 0; PLATELET ESTIMATE DECREASED
--- NOTE | 2019-02-09 11:08 | CONSULT ---
Admitting History and Physical - Primary Care Physician PCP: Brad Marino - Admission History of Present Illness: 83 year old woman with dementia, hx PAD admitted with gangrene of left 1st and 2nd toes. Unspecified Dysphagia diet ordered. . Receiving puree/nectar. Selected Entries 02/09/19 02/09/19 02/09/19 02:00 06:17 10:05 Breakfast Diet Tolerated Temperature 98.4 F 97.5 F L 97.8 F 02/09/19 10:22 Breakfast 100% Diet Tolerated Well Temperature Laboratory Tests 02/09/19 06:55 WBC 4.0 This is my first consult for this pt. History Source: Family Member (Pt's reports that she eats reg food at home, fed and self fed with assistance. He makes sure meat is cut up into small pieces.) Limitations to Obtaining History: Clinical Condition, Dementia (Progressive over 7 yr period. 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 Askeed for "water") Oral Expression Ability: Yes: Moderate Impairment, Severe Impairment - Speech Production Able to Make Needs Known: Yes: Moderately Impaired, Severely Impaired Intelligibility: Yes: Moderately Impaired, Severely Impaired - Speech Characteristics Voice Loudness: Mildly Soft/Quiet Voice Pitch: Yes: Normal Voice Phonatory-based Quality: Yes: Normal Speech Pattern: Impaired Speech Clarity: < 25% Nasal Resonance: Normal Articulation: Yes: Precise Rate of Speech: Too Fast - Language/Auditory Comprehension Observation: Able to respond to yes/no queries: No, Comprehends Conversational Speech: Yes (possibly on social speech/simple level.) - Language/Verbal Expression Aphasia: Yes: Paraphrasic Errors, Neologisms, Apraxia Able to Respond to Simple Queries: Yes: Severely Impaired Able to Communicate Wants and Needs: Yes: Moderately Impaired, Severely Impaired Functional Communication Status: Yes: Moderately Impaired, Severely Impaired - 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 Memory: Yes: Severely Impaired Short Term Memory: Yes: Severely Impaired - Swallow Evaluation/Bedside Assessment Current Nutritional Intake: Dysphagia Pureed, [place] Textured Liquids Oral Secretions: Yes: WFL Dentition: Yes: Missing Teeth Facial Symmetry at Rest: Symmetrical Lingual Movement: Symmetric Lingual Speed of Movement: Normal Lingual Movement Strgth Against Opposition: Reduced Lingual Movement Characteristics: Normal Laryngeal Movement: Labored,delay initiation Rate of Intake: Slow/Holding Bolus Size: Small Labial Seal: WFL Chewing: WFL (fair efficiency with cookie.) Oral Prep Time: Increased A-P Transit: WFL Pocketing: None Timing of Swallow: Delayed Coughing/Throat Clear: No Change in Voice: No Recommendations - Speech Evaluation, Impression/Plan Impression: Jargon output with occasional appropriate words produced. Tolerates solid food at home with assistance and thin liquids. Slow progressive weight loss. No supplements given at home. Excellent support of family. - Disposition Discharge to: Home with Assist - Dysphagia Impressions/Plan Dysphagia Impressions: Mild Impairment *Silent aspiration: cannot be R/O at bedside Dysphagia Treatment Plan: Small Bites, Chin Tuck/Down, Clear Pocket Food, Trial Feedings, Facilitative Feeding, Safe Rate, 1/2 tsp. at a time, Elevate HOB during feed, OOB for meals (if possible) - Recommendations Diet Consistency: Regular (softy, easy to chew, cut up by protective signal installer) Medication Administration: Crushed with applesauce (add sugar free maple syrup to reduce bitter taste) Liquids: Thin Liquids Supplement: Glucerna (tid after meals or as snacks.)
--- NOTE | 2019-02-09 12:32 | EKG ---
Test Reason : Blood Pressure : / mmHG Vent. Rate : 083 BPM Atrial Rate : 083 BPM P-R Int : 130 ms QRS Dur : 066 ms QT Int : 378 ms P-R-T Axes : 036 -02 073 degrees QTc Int : 444 ms POOR DATA QUALITY, INTERPRETATION MAY BE ADVERSELY AFFECTED NORMAL SINUS RHYTHM NORMAL ECG WHEN COMPARED WITH ECG OF 27-JAN-2018 13:41, ST NO LONGER DEPRESSED IN INFERIOR LEADS Confirmed by CECELIA CALLE, MARIETTA ([id number]) on 02/09/2019 12:31:33 PM Referred By: Confirmed By:MARIETTA RAI MD
--- NOTE | 2019-02-09 13:24 | PN ---
Progress Note, Physician Chief Complaint: patient seen and examined awake confused singing - Current Medication List Current Medications: Active Medications Amlodipine Besylate (Norvasc -) 5 mg PO DAILY [facility] Aspirin (Ecotrin -) 81 mg PO DAILY [facility] Last Admin: 02/09/19 10:17 Dose: 81 mg Atorvastatin Calcium (Lipitor -) 20 mg PO HS [facility] Last Admin: 02/08/19 21:22 Dose: 20 mg Heparin Sodium (Porcine) (Heparin -) 5,000 unit SQ BID [facility] Last Admin: 02/09/19 10:17 Dose: 5,000 unit Insulin Detemir (Levemir Vial) 20 units SQ DAILY@0700 [facility] Last Admin: 02/09/19 06:34 Dose: 20 units - Objective Vital Signs: Vital Signs Temperature 97.8 F 02/09/19 10:05 Pulse Rate 95 H 02/09/19 10:05 Respiratory Rate 17 02/09/19 10:05 Blood Pressure 145/85 02/09/19 10:05 O2 Sat by Pulse Oximetry (%) 100 02/09/19 09:00 Constitutional: Yes: Calm, Thin Cardiovascular: Yes: Regular Rate and Rhythm, S1, S2 Respiratory: Yes: CTA Bilaterally Gastrointestinal: Yes: Normal Bowel Sounds, Soft Extremities: Yes: Other (left 1 and 2 toe dry gangreene) Edema: No Labs: CBC, BMP 02/09/19 06:55 02/09/19 06:55 INR, PTT INR 0.97 (0.83-1.09) 02/08/19 15:11 Problem List - Problems (1) Gangrene of toe of left foot Assessment/Plan: dr stearns saw patient will speak to the family about angiogram iv abx ID eval dt ppx Code(s): I96 - GANGRENE, NOT ELSEWHERE CLASSIFIED (2) Diabetes Assessment/Plan: bgm sliding scale hgba1c levemir Code(s): E11.9 - TYPE 2 DIABETES MELLITUS WITHOUT COMPLICATIONS Qualifiers: Diabetes mellitus type: type 2
[2019-02-09] MEDS: amLODIPine BESYLATE 5 MG TABLET (FP) PO SCH (14:13)
--- NOTE | 2019-02-09 16:46 | PN ---
Progress Note (short form) - Note Progress Note: ID CONSULT DICTATED GANGRENE L FOOT ? CELLULITIS DM OBS EMPIRIC CEFTRIAXONE SURGICAL EVALUATION
[2019-02-09] MEDS: INSULIN SLIDING SCALE (NOVOLOG) 1 VIAL SQ SCH ×2 (17:02→21:57)
[2019-02-09] MEDS ORDERED: cefTRIAXone SODIUM 1 GM VIAL ONE (17:10)
[2019-02-09] MEDS ORDERED: DEXTROSE 5%-WATER - 50 ML IVPB ONE (17:11)
[2019-02-09] MEDS: CEFTRIAXONE 1 GM in DEXTROSE 5%-WATER - 50 ML IVPB SCH (17:17)
--- NOTE | 2019-02-09 17:18 | CONS ---
DATE OF CONSULTATION: DATE OF DICTATION: 02/09/2019 The patient is an 83-year-old female who was evaluated for gangrene of the left foot. History was obtained from the chart as well as family members present at the time of the examination. The patient's took her to the legal project manager after he noted discoloration of the left great and 2nd toes. She was seen by the legal project manager and was referred to the emergency room. In the emergency room the patient was noted to have dry gangrene involving the left 2nd toe, and to a lesser extent, the left great toe. She suffers from dementia and cannot offer any additional details. No reports of any purulent wound drainage. No reported fever or chills. Her last hospital admission was 1 year ago. PAST MEDICAL HISTORY: Positive for dementia, hypertension, hyperlipidemia, diabetes mellitus, stroke. ALLERGIES: No known allergies. MEDICATIONS: Amlodipine, aspirin, Lipitor, Levemir. SOCIAL HISTORY: She suffers from dementia. She is totally dependent in activities of daily living, lives at home with family. REVIEW OF SYSTEMS: Neurologic: Positive for stroke and dementia. Cardiac: Negative chest pain or palpitations. Respiratory: Negative cough or sputum production. Gastrointestinal: Negative vomiting or diarrhea. Genitourinary: Negative for urinary tract infection. LABORATORY DATA: White count 4.0, hematocrit 31.9, platelet count 116. Creatinine 0.6. Cultures are pending. X-ray of the foot: No sign of fracture or dislocation. PHYSICAL EXAMINATION: General: The patient is awake, however, confused. Patient appears cachectic. Vital Signs: Temperature 97.8, blood pressure 145/85, pulse 80, regular. Respirations 20 per minute. HEENT: Sclerae are anicteric. Cardiovascular: Heart sounds S1, S2. Lungs: Clear. Abdomen: Soft, nontender. Extremities: Examination of the left foot, there is a dry gangrene involving the left 2nd toe. There is also a necrotic ulceration with gangrene involving the lateral aspect of the left great toe. IMPRESSION: 1. Gangrene, left foot. 2. Possible cellulitis. 3. Diabetes mellitus. 4. Status post cerebrovascular accident. 5. Thrombocytopenia, chronic. Will obtain blood cultures, empiric antibiotic coverage, ceftriaxone 2 g IV piggyback daily. Surgical evaluation. Local wound care. Case discussed with family members present at the time of the examination. Thank you for the kind referral. JESE PAGE M.D. [id number]
[2019-02-09] MEDS: ATORVASTATIN CA 20 MG TABLET (FP) PO SCH (21:56)
[2019-02-10] MEDS: INSULIN SLIDING SCALE (NOVOLOG) 1 VIAL SQ SCH ×4 (06:15→21:00)
[2019-02-10] MEDS: INSULIN (LEVEMIR) 100 UNITS/ML UNITS SQ SCH (06:37)
[2019-02-10 07:57] LABS: BASO % 1.1 % (0-2.0); HEMATOCRIT 31.9 % (32.4-45.2); HEMOGLOBIN 10.5 GM/dL (10.7-15.3); LYMPH % 37.5 % (8-40); MCH 23.7 pg (25.7-33.7); MCHC 32.9 g/dl (32.0-36.0); MEAN CELL VOLUME 72.1 fl (80-96); MEAN PLT VOLUME 9.3 fl (7.5-11.1); MONO % 4.8 % (3.8-10.2); NEUT % 56.6 % (42.8-82.8); PLATELET COUNT 118 K/MM3 (134-434); RBC 4.43 M/mm3 (3.60-5.2); RDW 13.4 % (11.6-15.6); WHITE BLOOD COUNT 4.8 K/mm3 (4.0-10.0)
[2019-02-10 08:38] LABS: ALBUMIN 3.5 g/dl (3.4-5.0); BILIRUBIN,TOTAL 0.6 mg/dL (0.2-1); CREATININE 0.7 mg/dL (0.55-1.3); POTASSIUM 4.8 mmol/L (3.5-5.1); TOT PROT 6.9 g/dl (6.4-8.2)
[2019-02-10] MEDS ORDERED: cefTRIAXone SODIUM 1 GM VIAL ONE (09:35)
[2019-02-10] MEDS ORDERED: DEXTROSE 5%-WATER - 50 ML IVPB ONE (09:35)
[2019-02-10] MEDS: ASPIRIN COATED 81 MG TABLET.EC PO SCH (10:04)
[2019-02-10] MEDS: amLODIPine BESYLATE 5 MG TABLET (FP) PO SCH (10:04)
[2019-02-10] MEDS: HEPARIN NA (PORCINE) 5,000 UNITS/ML 1ML VIAL SQ SCH ×2 (10:04→21:00)
[2019-02-10] MEDS: CEFTRIAXONE 1 GM in DEXTROSE 5%-WATER - 50 ML IVPB SCH (10:05)
[2019-02-10 10:33] LABS: ANISOCYTOSIS 0; MACROCYTOSIS 0; PLATELET ESTIMATE DECREASED
--- NOTE | 2019-02-10 11:42 | PN ---
Progress Note, WATER MANAGER - Note Progress Note: Selected Entries 02/09/19 02/09/19 02/09/19 02:00 06:17 10:05 Breakfast Lunch Supper Temperature 98.4 F 97.5 F L 97.8 F 02/09/19 02/09/19 02/09/19 10:22 15:15 21:55 Breakfast 100% Lunch 100% Supper 100% Temperature 98.0 F 02/10/19 02/10/19 05:00 09:21 Breakfast Lunch Supper Temperature 98.0 F 97.7 F Laboratory Tests 02/10/19 07:40 WBC 4.8 Receiving Puree/nectar. Suggest diet upgrade- Diet Consistency: Regular (softy, easy to chew, cut up by food safety technician) Medication Administration: Crushed with applesauce (add sugar free maple syrup to reduce bitter taste) Liquids: Thin Liquids Supplement: Glucerna (tid after meals or as snacks.) Small Bites, Chin Tuck/Down, Clear Pocket Food, Trial Feedings, Facilitative Feeding, Safe Rate, 1/2 tsp. at a time, Elevate HOB during feed, OOB for meals ( if possible)
--- NOTE | 2019-02-10 13:25 | PN ---
Progress Note, Physician Chief Complaint: patient seen and examined has good appetite - Current Medication List Current Medications: Active Medications Amlodipine Besylate (Norvasc -) 5 mg PO DAILY [facility] Last Admin: 02/10/19 10:04 Dose: 5 mg Aspirin (Ecotrin -) 81 mg PO DAILY [facility] Last Admin: 02/10/19 10:04 Dose: 81 mg Atorvastatin Calcium (Lipitor -) 20 mg PO HS [facility] Last Admin: 02/09/19 21:56 Dose: 20 mg Heparin Sodium (Porcine) (Heparin -) 5,000 unit SQ BID [facility] Last Admin: 02/10/19 10:04 Dose: 5,000 unit Ceftriaxone Sodium 1 gm/ (Dextrose) 50 mls @ 100 mls/hr IVPB DAILY [facility]; Protocol Last Admin: 02/10/19 10:05 Dose: 100 mls/hr Insulin Aspart (Novolog Vial Sliding Scale -) 1 vial SQ ACHS [facility]; Protocol Last Admin: 02/10/19 11:24 Dose: 2 units Insulin Detemir (Levemir Vial) 20 units SQ DAILY@0700 [facility] Last Admin: 02/10/19 06:37 Dose: 20 units - Objective Vital Signs: Vital Signs Temperature 98.7 F 02/10/19 12:24 Pulse Rate 106 H 02/10/19 09:21 Respiratory Rate 17 02/10/19 09:21 Blood Pressure 141/62 02/10/19 09:21 O2 Sat by Pulse Oximetry (%) 100 02/09/19 21:00 Constitutional: Yes: Calm, Thin Cardiovascular: Yes: Regular Rate and Rhythm, S1, S2 Respiratory: Yes: CTA Bilaterally Gastrointestinal: Yes: Normal Bowel Sounds, Soft Extremities: Yes: Other (left toe gangrene) Labs: CBC, BMP 02/10/19 07:40 02/10/19 07:40 INR, PTT INR 0.97 (0.83-1.09) 02/08/19 15:11 Problem List - Problems (1) Gangrene of toe of left foot Assessment/Plan: dr stearns saw patient will speak to the family about angiogram iv abx ID on board dt ppx Code(s): I96 - GANGRENE, NOT ELSEWHERE CLASSIFIED (2) Diabetes Assessment/Plan: bgm sliding scale hgba1c 7.9 levemir Code(s): E11.9 - TYPE 2 DIABETES MELLITUS WITHOUT COMPLICATIONS Qualifiers: Diabetes mellitus type: type 2
[2019-02-10] MEDS: ATORVASTATIN CA 20 MG TABLET (FP) PO SCH (21:00)
[2019-02-11] MEDS: INSULIN SLIDING SCALE (NOVOLOG) 1 VIAL SQ SCH ×4 (06:01→22:08)
[2019-02-11] MEDS: INSULIN (LEVEMIR) 100 UNITS/ML UNITS SQ SCH (06:31)
[2019-02-11] MEDS ORDERED: cefTRIAXone SODIUM 1 GM VIAL ONE (09:43)
[2019-02-11] MEDS ORDERED: DEXTROSE 5%-WATER - 50 ML IVPB ONE (09:44)
[2019-02-11] MEDS: amLODIPine BESYLATE 5 MG TABLET (FP) PO SCH (09:50)
[2019-02-11] MEDS: HEPARIN NA (PORCINE) 5,000 UNITS/ML 1ML VIAL SQ SCH ×2 (09:50→22:08)
[2019-02-11] MEDS: ASPIRIN COATED 81 MG TABLET.EC PO SCH (09:50)
[2019-02-11] MEDS: CEFTRIAXONE 1 GM in DEXTROSE 5%-WATER - 50 ML IVPB SCH (09:51)
--- NOTE | 2019-02-11 13:52 | PN ---
Progress Note (short form) - Note Progress Note: Exam unchanged - dry gangrene of toes left foot. No vascular studies have been done - ordered 3 days ago. states patent can walk with assistance. She is now under full restraints and has not been out of bed according to nurses. Once vascular testing is done a plan can be formulated. Problem List - Problems (1) Gangrene of toe of left foot Code(s): I96 - GANGRENE, NOT ELSEWHERE CLASSIFIED
--- NOTE | 2019-02-11 17:28 | PN ---
Progress Note, Physician Chief Complaint: L foot 2nd digit Gangrene Dementia History of Present Illness: Previous notes and events reviewed awake and alert non-verbal NAD noted to be tachycardic--EKG ordered, troponin ordered - Current Medication List Current Medications: Active Medications Amlodipine Besylate (Norvasc -) [address] [facility] Last Admin: 02/11/19 09:50 Dose: 5 mg Aspirin (Ecotrin -) [address] [facility] Last Admin: 02/11/19 09:50 Dose: 81 mg Atorvastatin Calcium (Lipitor -) [address] [facility] Last Admin: 02/10/19 21:00 Dose: 20 mg Heparin Sodium (Porcine) (Heparin -) 5,[address] [facility] Last Admin: 02/11/19 09:50 Dose: 5,000 unit Ceftriaxone Sodium 1 gm/ (Dextrose) 50 mls @ 100 mls/hr IVPB DAILY [facility]; Protocol Last Admin: 02/11/19 09:51 Dose: 100 mls/hr Insulin Aspart (Novolog Vial Sliding Scale -) [address] [facility]; Protocol Last Admin: 02/11/19 11:31 Dose: 6 units Insulin Detemir (Levemir Vial) 20 units SQ DAILY@0700 [facility] Last Admin: 02/11/19 06:31 Dose: 20 units - Objective Vital Signs: Vital Signs Temperature 98 F 02/11/19 09:00 Pulse Rate 95 H 02/11/19 09:00 Respiratory Rate 20 02/11/19 09:00 Blood Pressure 139/63 02/11/19 09:00 O2 Sat by Pulse Oximetry (%) 100 02/10/19 21:00 Constitutional: Yes: No Distress, Calm, Cachectic Eyes: Yes: Conjunctiva Clear HENT: Yes: Atraumatic Cardiovascular: Yes: Tachycardia Respiratory: Yes: Regular, CTA Bilaterally Gastrointestinal: Yes: Normal Bowel Sounds, Soft Genitourinary: Yes: Incontinence Musculoskeletal: Yes: Muscle Weakness Extremities: Yes: WNL Edema: No Integumentary: Yes: Other (gangrene L foot 2nd digit) Neurological: Yes: Alert, Pre-Existing Deficit Psychiatric: Yes: Alert Labs: CBC, BMP 02/10/19 07:40 02/10/19 07:40 INR, PTT INR 0.97 (0.83-1.09) 02/08/19 15:11 Microbiology 02/09/19 20:30 Blood - Peripheral Venous Blood Culture - Preliminary NO GROWTH OBTAINED AFTER 24 HOURS, INCUBATION TO CONTINUE FOR 4 DAYS. 02/09/19 18:00 Blood - Peripheral Venous Blood Culture - Preliminary NO GROWTH OBTAINED AFTER 24 HOURS, INCUBATION TO CONTINUE FOR 4 DAYS. Problem List - Problems (1) Gangrene of left foot Assessment/Plan: -Vascular and Podiatry consult -Arterial Doppler LLE pending -L foot xray shows no sign of fracture or subluxation -ID on board -Ceftriaxone Code(s): I96 - GANGRENE, NOT ELSEWHERE CLASSIFIED (2) Dementia Assessment/Plan: -fall precaution -HOT BOX CHECKER for swallow eval Code(s): F03.90 - UNSPECIFIED DEMENTIA WITHOUT BEHAVIORAL DISTURBANCE (3) Diabetes Assessment/Plan: -BGM ACHS -Levemir -HgA1c 7.9% Code(s): E11.9 - TYPE 2 DIABETES MELLITUS WITHOUT COMPLICATIONS Qualifiers: Diabetes mellitus type: type 2 (4) Severe protein-calorie malnutrition Assessment/Plan: -Dietary consult -Ensure Code(s): E43 - UNSPECIFIED SEVERE PROTEIN-CALORIE MALNUTRITION (5) HTN (hypertension) Assessment/Plan: -Amlodipine -low Na Code(s): I10 - ESSENTIAL (PRIMARY) HYPERTENSION (6) HLD (hyperlipidemia) Assessment/Plan: -Atorvastatin Code(s): E78.5 - HYPERLIPIDEMIA, UNSPECIFIED Assessment/Plan see problem list dvt ppx
[2019-02-11] MEDS: ATORVASTATIN CA 20 MG TABLET (FP) PO SCH (22:08)
[2019-02-12] MEDS: INSULIN (LEVEMIR) 100 UNITS/ML UNITS SQ SCH (06:23)
[2019-02-12] MEDS: INSULIN SLIDING SCALE (NOVOLOG) 1 VIAL SQ SCH ×4 (06:25→22:21)
--- NOTE | 2019-02-12 09:28 | PN ---
Progress Note, Physician Chief Complaint: AWAKE CONFUSED EVENTS AND NOTES REVIEWED NO FEVER OR CHILLS - Current Medication List Current Medications: Active Medications Amlodipine Besylate (Norvasc -) 5 mg PO DAILY [facility] Last Admin: 02/11/19 09:50 Dose: 5 mg Aspirin (Ecotrin -) 81 mg PO DAILY [facility] Last Admin: 02/11/19 09:50 Dose: 81 mg Atorvastatin Calcium (Lipitor -) 20 mg PO HS [facility] Last Admin: 02/11/19 22:08 Dose: 20 mg Heparin Sodium (Porcine) (Heparin -) 5,000 unit SQ BID [facility] Last Admin: 02/11/19 22:08 Dose: 5,000 unit Ceftriaxone Sodium 1 gm/ (Dextrose) 50 mls @ 100 mls/hr IVPB DAILY [facility]; Protocol Last Admin: 02/11/19 09:51 Dose: 100 mls/hr Insulin Aspart (Novolog Vial Sliding Scale -) 1 vial SQ ACHS [facility]; Protocol Last Admin: 02/12/19 06:25 Dose: Not Given Insulin Detemir (Levemir Vial) 20 units SQ DAILY@0700 [facility] Last Admin: 02/12/19 06:23 Dose: 20 units - Objective Vital Signs: Vital Signs Temperature 98.2 F 02/12/19 06:27 Pulse Rate 102 H 02/12/19 06:27 Respiratory Rate 20 02/12/19 06:27 Blood Pressure 136/68 02/12/19 06:27 O2 Sat by Pulse Oximetry (%) 100 02/10/19 21:00 Constitutional: Yes: No Distress Eyes: Yes: WNL HENT: Yes: WNL Neck: Yes: WNL Cardiovascular: Yes: Regular Rate and Rhythm Respiratory: Yes: WNL Gastrointestinal: Yes: Soft Genitourinary: Yes: Incontinence Musculoskeletal: Yes: Muscle Weakness, Other Extremities: Yes: Other (GANGRENE LEFT LOWER EXTREMITY) Edema: No Integumentary: Yes: Other Wound/Incision: Yes: Dressing Dry and Intact (LEFT LOWER EXTREMITY GANGRENE NO PUS OR DISCHARGE) Neurological: Yes: Confusion, Pre-Existing Deficit ...Motor Strength: LLE Psychiatric: Yes: Other Labs: CBC, BMP 02/10/19 07:40 02/10/19 07:40 INR, PTT INR 0.97 (0.83-1.09) 02/08/19 15:11 Problem List - Problems (1) Gangrene of left foot Code(s): I96 - GANGRENE, NOT ELSEWHERE CLASSIFIED (2) Gangrene of toe of left foot Code(s): I96 - GANGRENE, NOT ELSEWHERE CLASSIFIED (3) HLD (hyperlipidemia) Code(s): E78.5 - HYPERLIPIDEMIA, UNSPECIFIED (4) HTN (hypertension) Code(s): I10 - ESSENTIAL (PRIMARY) HYPERTENSION (5) Anemia Code(s): D64.9 - ANEMIA, UNSPECIFIED (6) Dementia Code(s): F03.90 - UNSPECIFIED DEMENTIA WITHOUT BEHAVIORAL DISTURBANCE (7) Diabetes Code(s): E11.9 - TYPE 2 DIABETES MELLITUS WITHOUT COMPLICATIONS Qualifiers: Diabetes mellitus type: type 2 Assessment/Plan AWAITING DOPPLER STUDY OF LOWER EXTREMITY VASC SURGERY EVAL APPRECIATED WOUND CARE WET TO DRY DRESSING CHANGE FOR NOW UNTIL PLAN CAN BE FORMULATED BY VASC SURGERY INCREASE NUTRITION WITH SUPPLEMENTS AND VITAMINS FOR WOUND CARE DM CONTROL A1C 7.9% WHICH IS ACCEPTABLE AT HER AGE AND CONDITION AC ON HEPARIN ANEMIA STABLE ADVANCED DIRECTIVES FULL CODE
[2019-02-12] MEDS ORDERED: DEXTROSE 5%-WATER - 50 ML IVPB ONE (09:30)
[2019-02-12] MEDS ORDERED: cefTRIAXone SODIUM 1 GM VIAL ONE (09:30)
--- NOTE | 2019-02-12 09:36 | PN ---
Progress Note (short form) - Note Progress Note: I SPOKE WITH RADIOLOGY YELENA AND SHE NOTIFIED BONI HER NETWORK COMMUNICATIONS ENGINEER. PATIENT HAD A DOPPLER SONO OF THE LOWER LEFT EXTREMITY ARTERIES AND WAS NOT DONE. PATIENT TO HAVE IT DONE FIRST THING IN THE MORNING. I WILL D/W [facility] DONOHUE [facility] Problem List - Problems (1) Gangrene of left foot Code(s): I96 - GANGRENE, NOT ELSEWHERE CLASSIFIED (2) Gangrene of toe of left foot Code(s): I96 - GANGRENE, NOT ELSEWHERE CLASSIFIED (3) HLD (hyperlipidemia) Code(s): E78.5 - HYPERLIPIDEMIA, UNSPECIFIED (4) HTN (hypertension) Code(s): I10 - ESSENTIAL (PRIMARY) HYPERTENSION (5) Anemia Code(s): D64.9 - ANEMIA, UNSPECIFIED (6) Dementia Code(s): F03.90 - UNSPECIFIED DEMENTIA WITHOUT BEHAVIORAL DISTURBANCE (7) Diabetes Code(s): E11.9 - TYPE 2 DIABETES MELLITUS WITHOUT COMPLICATIONS Qualifiers: Diabetes mellitus type: type 2
[2019-02-12] MEDS ORDERED: PT OWN MED DRAWER 7, Y5N ONE ×2 (09:46→21:01)
[2019-02-12] MEDS: HEPARIN NA (PORCINE) 5,000 UNITS/ML 1ML VIAL SQ SCH ×2 (09:53→21:40)
[2019-02-12] MEDS: ZINC SULFATE 220 MG CAPSULE (FP) PO SCH (09:53)
[2019-02-12] MEDS: amLODIPine BESYLATE 5 MG TABLET (FP) PO SCH (09:54)
[2019-02-12] MEDS: ASPIRIN COATED 81 MG TABLET.EC PO SCH (09:54)
[2019-02-12 10:23] LABS: HEMATOCRIT 30.6 % (32.4-45.2); HEMOGLOBIN 9.9 GM/dL (10.7-15.3); MCH 23.8 pg (25.7-33.7); MCHC 32.4 g/dl (32.0-36.0); MEAN CELL VOLUME 73.3 fl (80-96); MEAN PLT VOLUME 9.2 fl (7.5-11.1); PLATELET COUNT 114 K/MM3 (134-434); RBC 4.17 M/mm3 (3.60-5.2); RDW 13.5 % (11.6-15.6); WHITE BLOOD COUNT 3.8 K/mm3 (4.0-10.0)
[2019-02-12 11:01] LABS: ALBUMIN 3.4 g/dl (3.4-5.0); BILIRUBIN,TOTAL 0.6 mg/dL (0.2-1); BLOOD UREA NITROGEN 22.8 mg/dL (7-18); CALCIUM 8.9 mg/dL (8.5-10.1); CREATININE 0.8 mg/dL (0.55-1.3); POTASSIUM 4.8 mmol/L (3.5-5.1); TOT PROT 6.7 g/dl (6.4-8.2)
[2019-02-12] MEDS ORDERED: INSULIN (NOVOLOG) ASPART 100 UNITS/ML 10ML VIAL ONE (11:08)
[2019-02-12] MEDS: CEFTRIAXONE 1 GM in DEXTROSE 5%-WATER - 50 ML IVPB SCH (11:48)
[2019-02-12] MEDS: ASCORBIC ACID 250 MG TABLET (FP) PO SCH ×2 (11:49→21:40)
--- NOTE | 2019-02-12 13:11 | EKG ---
Test Reason : Blood Pressure : / mmHG Vent. Rate : 108 BPM Atrial Rate : 108 BPM P-R Int : 116 ms QRS Dur : 066 ms QT Int : 340 ms P-R-T Axes : 049 030 065 degrees QTc Int : 455 ms POOR DATA QUALITY, INTERPRETATION MAY BE ADVERSELY AFFECTED SINUS TACHYCARDIA NONSPECIFIC ST AND T WAVE ABNORMALITY ABNORMAL ECG WHEN COMPARED WITH ECG OF 08-FEB-2019 14:56, NO SIGNIFICANT CHANGE WAS FOUND Confirmed by JESE PERDUE MD ([id number]) on 02/12/2019 1:10:43 PM Referred By: Confirmed By:JESE PERDUE MD
[2019-02-12] MEDS ORDERED: ACETAMINOPHEN 325 MG TABLET (FP) PO PRN (16:11)
[2019-02-12] MEDS: ATORVASTATIN CA 20 MG TABLET (FP) PO SCH (21:40)
[2019-02-13] MEDS: INSULIN (LEVEMIR) 100 UNITS/ML UNITS SQ SCH (06:12)
[2019-02-13] MEDS: INSULIN SLIDING SCALE (NOVOLOG) 1 VIAL SQ SCH ×4 (06:13→22:29)
--- NOTE | 2019-02-13 08:05 | PN ---
Progress Note, Physician - Current Medication List Current Medications: Active Medications Acetaminophen (Tylenol -) 650 mg PO Q6H PRN PRN Reason: PAIN LEVEL 6-10 Last Admin: 02/12/19 17:40 Dose: 650 mg Amlodipine Besylate (Norvasc -) 5 mg PO DAILY [facility] Last Admin: 02/12/19 09:54 Dose: 5 mg Ascorbic Acid (Vitamin C -) 250 mg PO BID [facility] Last Admin: 02/12/19 21:40 Dose: 250 mg Aspirin (Ecotrin -) 81 mg PO DAILY [facility] Last Admin: 02/12/19 09:54 Dose: 81 mg Atorvastatin Calcium (Lipitor -) 20 mg PO HS [facility] Last Admin: 02/12/19 21:40 Dose: 20 mg Heparin Sodium (Porcine) (Heparin -) 5,000 unit SQ BID [facility] Last Admin: 02/12/19 21:40 Dose: 5,000 unit Ceftriaxone Sodium 1 gm/ (Dextrose) 50 mls @ 100 mls/hr IVPB DAILY [facility]; Protocol Last Admin: 02/12/19 11:48 Dose: 100 mls/hr Insulin Aspart (Novolog Vial Sliding Scale -) 1 vial SQ ACHS [facility]; Protocol Last Admin: 02/13/19 06:13 Dose: Not Given Insulin Detemir (Levemir Vial) 20 units SQ DAILY@0700 [facility] Last Admin: 02/13/19 06:12 Dose: 20 units Zinc Sulfate (Orazinc -) 220 mg PO DAILY [facility] Last Admin: 02/12/19 09:53 Dose: 220 mg - Objective Vital Signs: Vital Signs Temperature 98.1 F 02/13/19 05:50 Pulse Rate 95 H 02/13/19 05:50 Respiratory Rate 20 02/13/19 05:50 Blood Pressure 136/54 L 02/13/19 05:50 O2 Sat by Pulse Oximetry (%) 100 02/12/19 21:00 Cardiovascular: Yes: Regular Rate and Rhythm Respiratory: Yes: Regular, CTA Bilaterally Gastrointestinal: Yes: Normal Bowel Sounds, Soft Extremities: Yes: Other (gangrene of 2 toes) Wound/Incision: Yes: Dressing Removed Labs: CBC, BMP 02/12/19 10:10 02/12/19 10:10 INR, PTT INR 0.97 (0.83-1.09) 02/08/19 15:11 Assessment/Plan - Problems (1) Gangrene of left foot Assessment/Plan: -Vascular and Podiatry consult -Arterial Doppler LLE pending -L foot xray shows no sign of fracture or subluxation -ID on board -Ceftriaxone Code(s): I96 - GANGRENE, NOT ELSEWHERE CLASSIFIED (2) Dementia Assessment/Plan: -fall precaution -CHIEF CREDIT OFFICER for swallow eval Code(s): F03.90 - UNSPECIFIED DEMENTIA WITHOUT BEHAVIORAL DISTURBANCE (3) Diabetes Assessment/Plan: -BGM ACHS -Levemir -HgA1c 7.9% Code(s): E11.9 - TYPE 2 DIABETES MELLITUS WITHOUT COMPLICATIONS Qualifiers: Diabetes mellitus type: type 2 (4) Severe protein-calorie malnutrition Assessment/Plan: -Dietary consult -Ensure Code(s): E43 - UNSPECIFIED SEVERE PROTEIN-CALORIE MALNUTRITION (5) HTN (hypertension) Assessment/Plan: -Amlodipine -low Na Code(s): I10 - ESSENTIAL (PRIMARY) HYPERTENSION (6) HLD (hyperlipidemia) Assessment/Plan: -Atorvastatin Code(s): E78.5 - HYPERLIPIDEMIA, UNSPECIFIED
[2019-02-13] MEDS ORDERED: PT OWN MED DRAWER 7, Y5N ONE (10:24)
[2019-02-13] MEDS ORDERED: cefTRIAXone SODIUM 1 GM VIAL ONE (10:24)
[2019-02-13] MEDS ORDERED: DEXTROSE 5%-WATER - 50 ML IVPB ONE (10:25)
[2019-02-13] MEDS: CEFTRIAXONE 1 GM in DEXTROSE 5%-WATER - 50 ML IVPB SCH (10:26)
[2019-02-13] MEDS: HEPARIN NA (PORCINE) 5,000 UNITS/ML 1ML VIAL SQ SCH ×2 (10:27→21:26)
[2019-02-13] MEDS: amLODIPine BESYLATE 5 MG TABLET (FP) PO SCH (10:27)
[2019-02-13] MEDS: ASPIRIN COATED 81 MG TABLET.EC PO SCH (10:27)
[2019-02-13] MEDS: ZINC SULFATE 220 MG CAPSULE (FP) PO SCH (10:27)
[2019-02-13] MEDS: ASCORBIC ACID 250 MG TABLET (FP) PO SCH ×2 (10:28→22:30)
--- NOTE | 2019-02-13 10:37 | CONSULT ---
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 History of Recent Travel: No Home Medications - Allergies Allergies/Adverse Reactions: Allergies Allergy/AdvReac Type Severity Reaction Status Date / Time No Known Allergies Allergy Verified 02/08/19 12:56 - Home Medications Home Medications: Ambulatory Orders Amlodipine Bes/Olmesartan Med [Amlodipine-Olmesartan 5-20 mg] 1 each PO DAILY Aspirin [Aspirin EC] 81 mg PO DAILY 02/08/19 Atorvastatin Ca [Lipitor] 20 mg PO HS 02/08/19 Insulin (Levemir) [Levemir Vial] 20 unit SQ DAILY 02/08/19 Physical Exam Vital Signs: Vital Signs Temperature 98.1 F 02/13/19 05:50 Pulse Rate 95 H 02/13/19 05:50 Respiratory Rate 20 02/13/19 05:50 Blood Pressure 136/54 L 02/13/19 05:50 O2 Sat by Pulse Oximetry (%) 100 02/12/19 21:00 Extremities: Yes: Other (+gangarene 1&2 left, -cellulitis, -weeping, -drainage, -mal odor, +dry, non palpable pulses b/l) Labs: CBC, BMP 02/12/19 10:10 02/12/19 10:10 Assessment/Plan gangarene left pvd Read and appreciated vascular and ID note. Awaiting vascular studies. Will Discuss with Dr. Zhu once a plan is formulated. Will follow. Dry sterile dressing left foot.
[2019-02-13] MEDS ORDERED: INSULIN (NOVOLOG) ASPART 100 UNITS/ML 10ML VIAL ONE (11:35)
--- NOTE | 2019-02-13 12:15 | PN ---
Progress Note, TALENT BUYER - Note Progress Note: Selected Entries 02/12/19 02/12/19 02/12/19 01:33 06:27 09:00 Breakfast Diet Tolerated Lunch Supper Temperature 98.4 F 98.2 F 99 F 02/12/19 02/12/19 02/12/19 09:36 13:58 19:43 Breakfast 75% Diet Tolerated Well Well Well Lunch 100% Supper 75% Temperature 02/12/19 02/13/19 22:07 05:50 Breakfast Diet Tolerated Lunch Supper Temperature 98.5 F 98.1 F Laboratory Tests 02/10/19 02/12/19 07:40 10:10 WBC 4.8 3.8 L Diet upgraded to soft to chew/thin liquids. is cutting cut/mashing food for his with good tolerance and appetite.
[2019-02-13] MEDS: ATORVASTATIN CA 20 MG TABLET (FP) PO SCH (21:26)
[2019-02-14] MEDS: INSULIN SLIDING SCALE (NOVOLOG) 1 VIAL SQ SCH ×4 (06:21→21:29)
[2019-02-14] MEDS: INSULIN (LEVEMIR) 100 UNITS/ML UNITS SQ SCH (06:22)
[2019-02-14] MEDS ORDERED: INSULIN (NOVOLOG) ASPART 100 UNITS/ML 10ML VIAL ONE ×2 (06:43→16:44)
--- NOTE | 2019-02-14 09:33 | PN ---
Progress Note, Physician - Current Medication List Current Medications: Active Medications Acetaminophen (Tylenol -) 650 mg PO Q6H PRN PRN Reason: PAIN LEVEL 6-10 Last Admin: 02/12/19 17:40 Dose: 650 mg Amlodipine Besylate (Norvasc -) 5 mg PO DAILY [facility] Last Admin: 02/13/19 10:27 Dose: 5 mg Ascorbic Acid (Vitamin C -) 250 mg PO BID [facility] Last Admin: 02/13/19 22:30 Dose: 250 mg Aspirin (Ecotrin -) 81 mg PO DAILY [facility] Last Admin: 02/13/19 10:27 Dose: 81 mg Atorvastatin Calcium (Lipitor -) 20 mg PO HS [facility] Last Admin: 02/13/19 21:26 Dose: 20 mg Heparin Sodium (Porcine) (Heparin -) 5,000 unit SQ BID [facility] Last Admin: 02/13/19 21:26 Dose: 5,000 unit Ceftriaxone Sodium 1 gm/ (Dextrose) 50 mls @ 100 mls/hr IVPB DAILY [facility]; Protocol Last Admin: 02/13/19 10:26 Dose: 100 mls/hr Insulin Aspart (Novolog Vial Sliding Scale -) 1 vial SQ ACHS [facility]; Protocol Last Admin: 02/14/19 06:21 Dose: Not Given Insulin Detemir (Levemir Vial) 20 units SQ DAILY@0700 [facility] Last Admin: 02/14/19 06:22 Dose: 20 units Zinc Sulfate (Orazinc -) 220 mg PO DAILY [facility] Last Admin: 02/13/19 10:27 Dose: 220 mg - Objective Vital Signs: Vital Signs Temperature 99.1 F 02/14/19 05:50 Pulse Rate 101 H 02/14/19 05:50 Respiratory Rate 20 02/14/19 05:50 Blood Pressure 149/90 02/14/19 05:50 O2 Sat by Pulse Oximetry (%) 100 02/13/19 20:38 Cardiovascular: Yes: S1, S2 Respiratory: Yes: Regular, CTA Bilaterally Gastrointestinal: Yes: Normal Bowel Sounds, Soft Wound/Incision: Yes: Dressing Dry and Intact Labs: CBC, BMP 02/12/19 10:10 02/12/19 10:10 INR, PTT INR 0.97 (0.83-1.09) 02/08/19 15:11 Assessment/Plan - Problems (1) Gangrene of left foot Assessment/Plan: -Vascular and Podiatry consult -Arterial Doppler LLE results pending -L foot xray shows no sign of fracture or subluxation -ID on board -Ceftriaxone Code(s): I96 - GANGRENE, NOT ELSEWHERE CLASSIFIED (2) Dementia Assessment/Plan: -fall precaution -REFLEXOLOGIST for swallow eval Code(s): F03.90 - UNSPECIFIED DEMENTIA WITHOUT BEHAVIORAL DISTURBANCE (3) Diabetes Assessment/Plan: -BGM ACHS -Levemir -HgA1c 7.9% Code(s): E11.9 - TYPE 2 DIABETES MELLITUS WITHOUT COMPLICATIONS Qualifiers: Diabetes mellitus type: type 2 (4) Severe protein-calorie malnutrition Assessment/Plan: -Dietary consult -Ensure Code(s): E43 - UNSPECIFIED SEVERE PROTEIN-CALORIE MALNUTRITION (5) HTN (hypertension) Assessment/Plan: -Amlodipine -low Na Code(s): I10 - ESSENTIAL (PRIMARY) HYPERTENSION (6) HLD (hyperlipidemia) Assessment/Plan: -Atorvastatin Code(s): E78.5 - HYPERLIPIDEMIA, UNSPECIFIED
[2019-02-14] MEDS ORDERED: DEXTROSE 5%-WATER - 50 ML IVPB ONE (10:58)
[2019-02-14] MEDS ORDERED: cefTRIAXone SODIUM 1 GM VIAL ONE (10:58)
[2019-02-14] MEDS: amLODIPine BESYLATE 5 MG TABLET (FP) PO SCH (11:05)
[2019-02-14] MEDS: ASPIRIN COATED 81 MG TABLET.EC PO SCH (11:05)
[2019-02-14] MEDS: HEPARIN NA (PORCINE) 5,000 UNITS/ML 1ML VIAL SQ SCH ×2 (11:05→21:29)
[2019-02-14] MEDS: CEFTRIAXONE 1 GM in DEXTROSE 5%-WATER - 50 ML IVPB SCH (11:05)
[2019-02-14] MEDS: ZINC SULFATE 220 MG CAPSULE (FP) PO SCH (11:06)
[2019-02-14] MEDS: ASCORBIC ACID 250 MG TABLET (FP) PO SCH ×2 (11:06→21:30)
--- NOTE | 2019-02-14 14:49 | PN ---
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 is cutting cut/mashing food for his with good tolerance and appetite. Pt enjoying her food. Glucerna given as supplement with good tolerance.m
--- NOTE | 2019-02-14 18:52 | PN ---
Progress Note (short form) - Note Progress Note: Doppler shows severe flow deficit to left foot. Angiogram to be scheduled for afternoon - if able to revascularize she will need toe amputations. Plans discussed with patient's . Problem List - Problems (1) Gangrene of toe of left foot Code(s): I96 - GANGRENE, NOT ELSEWHERE CLASSIFIED
[2019-02-14] MEDS: ATORVASTATIN CA 20 MG TABLET (FP) PO SCH (21:29)
--- NOTE | 2019-02-14 22:38 | CONSULT ---
Consult Consult Specialty:: endocrine Referred by:: francesca esquivel Reason for Consultation:: dm 2 - History of Present Illness Chief Complaint: confused/ dementia History of Present Illness: 3 y/o female with past medical history of DM 2, HTN, HLD, advanced Dementia, CVA 1992. Patient has been under care of legal officer due to gangrene L foot 2nd digit. Patient is poor informant due to dementia is giving history. Patient followed by Dr Zhu in the past and last visit was 2 months ago as per .she has elevated blood sugars and poor appetite,which have made stable glycemia difficult to achieve. 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 [facility] History of Recent Travel: No Home Medications - Allergies Allergies/Adverse Reactions: Allergies Allergy/AdvReac Type Severity Reaction Status Date / Time No Known Allergies Allergy Verified 02/08/19 12:56 - Home Medications Home Medications: Ambulatory Orders Amlodipine Bes/Olmesartan Med [Amlodipine-Olmesartan 5-20 mg] 1 each PO DAILY Aspirin [Aspirin EC] 81 mg PO DAILY 02/08/19 Atorvastatin Ca [Lipitor] 20 mg PO HS 02/08/19 Insulin (Levemir) [Levemir Vial] 20 unit SQ DAILY 02/08/19 Review of Systems Unable to obtain ROS, reason: dementia Physical Exam Vital Signs: Vital Signs Temperature 98.3 F 02/14/19 18:00 Pulse Rate 102 H 02/14/19 18:00 Respiratory Rate 02/14/19 18:00 Blood Pressure 145/69 02/14/19 18:00 O2 Sat by Pulse Oximetry (%) 100 02/13/19 20:38 Constitutional: Yes: Anxious Eyes: Yes: EOM Intact HENT: Yes: Normocephalic Neck: Yes: WNL Cardiovascular: Yes: Regular Rate and Rhythm Respiratory: Yes: CTA Bilaterally Gastrointestinal: Yes: Normal Bowel Sounds ...Rectal Exam: Yes: Deferred Renal/: Yes: WNL Musculoskeletal: Yes: WNL Extremities: Yes: Erythema Edema: No Peripheral Pulses WNL: No Wound/Incision: Yes: Dressing Dry and Intact Neurological: Yes: Confusion Labs: CBC, BMP 02/12/19 10:10 02/12/19 10:10 Problem List - Problems (1) Type 2 diabetes mellitus with hyperosmolarity without nonketotic hyperglycemic-hyperosmolar coma ([facility]) Code(s): E11.00 - TYPE 2 DIAB W HYPROSM W/O NONKET HYPRGLY-HYPROS COMA ([facility]) (2) Gangrene Code(s): I96 - GANGRENE, NOT ELSEWHERE CLASSIFIED (3) Gangrene of left foot Code(s): I96 - GANGRENE, NOT ELSEWHERE CLASSIFIED (4) Altered mental status Code(s): R41.82 - ALTERED MENTAL STATUS, UNSPECIFIED Qualifiers: Altered mental status type: unspecified Qualified Code(s): R41.82 - Altered mental status, unspecified Assessment/Plan Current Active Problems dm 2 neuropathy hyperglycemia Gangrene (Acute) Gangrene of left foot (Acute) Gangrene of toe of left foot (Acute) HLD (hyperlipidemia) (Acute) HTN (hypertension) (Acute) Laboratory Results - last 24 hr 02/14/19 02/14/19 02/14/19 06:18 11:45 16:26 POC Glucometer 161 171 246 02/14/19 21:26 POC Glucometer 253 Laboratory Tests 02/09/19 02/10/19 02/12/19 06:55 07:40 10:10 Sodium 138 Potassium 4.8 Chloride 99 Carbon Dioxide 32 Anion Gap 6 L BUN 22.8 H Creatinine 0.8 POC Glucometer Hemoglobin A1c % 7.9 H TSH 2.67 02/12/19 02/12/19 02/12/19 11:14 16:31 22:19 Sodium Potassium Chloride Carbon Dioxide Anion Gap BUN Creatinine POC Glucometer 260 265 251 Hemoglobin A1c % TSH 02/13/19 06:13 Sodium Potassium Chloride Carbon Dioxide Anion Gap BUN Creatinine POC Glucometer 145 Hemoglobin A1c % TSH plan: bgm qid novolog scale levemir 20 units am wound care and nutrition supplementation
[2019-02-14] MEDS ORDERED: INSULIN (LEVEMIR) 100 UNITS/ML UNITS SQ SCH (22:51)
[2019-02-15] MEDS: INSULIN SLIDING SCALE (NOVOLOG) 1 VIAL SQ SCH ×4 (06:19→22:57)
[2019-02-15] MEDS ORDERED: CLOPIDOGREL BISULFATE 300 MG TABLET PO ONE (08:00)
--- NOTE | 2019-02-15 08:45 | PN ---
Progress Note, Physician History of Present Illness: VASC CONSULT NOTED AT BEDSIDE==RESULTS DISCUSSED==AGREES WITH ANGIO - Current Medication List Current Medications: Active Medications Acetaminophen (Tylenol -) 650 mg PO Q6H PRN PRN Reason: PAIN LEVEL 6-10 Last Admin: 02/12/19 17:40 Dose: 650 mg Amlodipine Besylate (Norvasc -) 5 mg PO DAILY [facility] Last Admin: 02/14/19 11:05 Dose: 5 mg Ascorbic Acid (Vitamin C -) 250 mg PO BID [facility] Last Admin: 02/14/19 21:30 Dose: 250 mg Aspirin (Ecotrin -) 81 mg PO DAILY [facility] Last Admin: 02/14/19 11:05 Dose: 81 mg Atorvastatin Calcium (Lipitor -) 20 mg PO HS [facility] Last Admin: 02/14/19 21:29 Dose: 20 mg Heparin Sodium (Porcine) (Heparin -) 5,000 unit SQ BID [facility] Last Admin: 02/14/19 21:29 Dose: 5,000 unit Ceftriaxone Sodium 1 gm/ (Dextrose) 50 mls @ 100 mls/hr IVPB DAILY [facility]; Protocol Last Admin: 02/14/19 11:05 Dose: 100 mls/hr Insulin Aspart (Novolog Vial Sliding Scale -) 1 vial SQ ACHS [facility]; Protocol Last Admin: 02/15/19 06:19 Dose: 2 units Insulin Detemir (Levemir Vial) 20 units SQ DAILY@0700 [facility] Zinc Sulfate (Orazinc -) 220 mg PO DAILY [facility] Last Admin: 02/14/19 11:06 Dose: 220 mg - Objective Vital Signs: Vital Signs Temperature 98.5 F 02/15/19 05:47 Pulse Rate 100 H 02/15/19 05:47 Respiratory Rate 18 02/15/19 05:47 Blood Pressure 147/81 02/15/19 05:47 O2 Sat by Pulse Oximetry (%) 96 02/14/19 21:00 Cardiovascular: Yes: Regular Rate and Rhythm Respiratory: Yes: Regular, CTA Bilaterally Gastrointestinal: Yes: Normal Bowel Sounds, Soft. No: Tenderness Edema: No Wound/Incision: Yes: Other (GANGRENE OF TOES--2) Neurological: Yes: Confusion Labs: CBC, BMP 02/12/19 10:10 02/12/19 10:10 INR, PTT INR 0.97 (0.83-1.09) 02/08/19 15:11 Assessment/Plan - Problems (1) Gangrene of left foot Assessment/Plan: -Vascular and Podiatry consult--ANGIOGRAM TODAY -Arterial Doppler LLE results pending -L foot xray shows no sign of fracture or subluxation -ID on board -Ceftriaxone Code(s): I96 - GANGRENE, NOT ELSEWHERE CLASSIFIED (2) Dementia Assessment/Plan: -fall precaution -MOVIE STUNT PERFORMER for swallow eval Code(s): F03.90 - UNSPECIFIED DEMENTIA WITHOUT BEHAVIORAL DISTURBANCE (3) Diabetes Assessment/Plan: -BGM ACHS -Levemir -HgA1c 7.9% Code(s): E11.9 - TYPE 2 DIABETES MELLITUS WITHOUT COMPLICATIONS Qualifiers: Diabetes mellitus type: type 2 (4) Severe protein-calorie malnutrition Assessment/Plan: -Dietary consult -Ensure Code(s): E43 - UNSPECIFIED SEVERE PROTEIN-CALORIE MALNUTRITION (5) HTN (hypertension) Assessment/Plan: -Amlodipine -low Na Code(s): I10 - ESSENTIAL (PRIMARY) HYPERTENSION (6) HLD (hyperlipidemia) Assessment/Plan: -Atorvastatin Code(s): E78.5 - HYPERLIPIDEMIA, UNSPECIFIED
[2019-02-15] MEDS ORDERED: cefTRIAXone SODIUM 1 GM VIAL ONE (09:48)
[2019-02-15] MEDS ORDERED: DEXTROSE 5%-WATER - 50 ML IVPB ONE (09:49)
[2019-02-15] MEDS: ASCORBIC ACID 250 MG TABLET (FP) PO SCH ×2 (09:51→22:28)
[2019-02-15] MEDS: amLODIPine BESYLATE 5 MG TABLET (FP) PO SCH (09:51)
[2019-02-15] MEDS: CEFTRIAXONE 1 GM in DEXTROSE 5%-WATER - 50 ML IVPB SCH (09:51)
[2019-02-15] MEDS: ZINC SULFATE 220 MG CAPSULE (FP) PO SCH (09:51)
--- NOTE | 2019-02-15 11:59 | PN ---
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 Pt enjoying her food and Glucerna. Pt on soft to chew/thin liquids.
--- NOTE | 2019-02-15 12:00 | PN ---
Progress Note, Physician History of Present Illness: SUPINE IN BED CONFUSED AFEBRILE - Current Medication List Current Medications: Active Medications Acetaminophen (Tylenol -) 650 mg PO Q6H PRN PRN Reason: PAIN LEVEL 6-10 Last Admin: 02/12/19 17:40 Dose: 650 mg Amlodipine Besylate (Norvasc -) 5 mg PO DAILY [facility] Last Admin: 02/15/19 09:51 Dose: 5 mg Ascorbic Acid (Vitamin C -) 250 mg PO BID [facility] Last Admin: 02/15/19 09:51 Dose: 250 mg Aspirin (Ecotrin -) 81 mg PO DAILY [facility] Last Admin: 02/14/19 11:05 Dose: 81 mg Atorvastatin Calcium (Lipitor -) 20 mg PO HS [facility] Last Admin: 02/14/19 21:29 Dose: 20 mg Heparin Sodium (Porcine) (Heparin -) 5,000 unit SQ BID [facility] Last Admin: 02/14/19 21:29 Dose: 5,000 unit Ceftriaxone Sodium 1 gm/ (Dextrose) 50 mls @ 100 mls/hr IVPB DAILY [facility]; Protocol Last Admin: 02/15/19 09:51 Dose: 100 mls/hr Insulin Aspart (Novolog Vial Sliding Scale -) 1 vial SQ ACHS [facility]; Protocol Last Admin: 02/15/19 11:46 Dose: Not Given Insulin Detemir (Levemir Vial) 20 units SQ DAILY@0700 [facility] Zinc Sulfate (Orazinc -) 220 mg PO DAILY [facility] Last Admin: 02/15/19 09:51 Dose: 220 mg - Objective Vital Signs: Vital Signs Temperature 98.5 F 02/15/19 05:47 Pulse Rate 100 H 02/15/19 05:47 Respiratory Rate 18 02/15/19 05:47 Blood Pressure 147/81 02/15/19 05:47 O2 Sat by Pulse Oximetry (%) 96 02/14/19 21:00 Constitutional: Yes: No Distress, Cachectic Cardiovascular: Yes: Regular Rate and Rhythm, S1, S2 Respiratory: Yes: CTA Bilaterally Gastrointestinal: Yes: Normal Bowel Sounds, Soft. No: Tenderness Extremities: Yes: Other (L FOOT WITH DRY GANGRENE 1ST/ 2ND TOES, SL HYPEREMIA) Labs: CBC, BMP 02/12/19 10:10 02/12/19 10:10 INR, PTT INR 0.97 (0.83-1.09) 02/08/19 15:11 Assessment/Plan GANGRENE L FOOT OBS FOR ANGIOPLASTY/ AMPUTATION CONTINUE CEFTRIAXONE
--- NOTE | 2019-02-15 12:02 | PN ---
Progress Note (short form) - Note Progress Note: FUV left foot. Patient scheduled today for angiogram. present vss +ganagrene left foot toes 1&2, +dry gangarene pvd Will discuss with Dr. Zhu after angiogram to see how he would like to proceed with toes 1&2. presents and pleasant as he waits for Angiogram to be done. Will follow.
[2019-02-15] MEDS: ASPIRIN COATED 81 MG TABLET.EC PO SCH (13:33)
[2019-02-15] MEDS ORDERED: LIDOCAINE HCL 1%, 10 MG/ML (20ML VIAL) ONE (14:36)
[2019-02-15] MEDS ORDERED: HEPARIN NA (PORCINE) 5,000 UNITS/ML 1ML VIAL ONE ×2 (14:36→19:27)
[2019-02-15] MEDS ORDERED: PROMETHAZINE HCL 25 MG/1 ML VIAL IVPUSH PRN ×4 (17:56→20:28)
[2019-02-15] MEDS ORDERED: ONDANSETRON 4 MG/2 ML VIAL IVPUSH PRN ×4 (17:56→20:28)
[2019-02-15] MEDS ORDERED: oxyCODONE HCL 5 MG TABLET PO PRN ×4 (17:56→20:28)
[2019-02-15] MEDS ORDERED: PROPOFOL 20 ML ONE (18:28)
--- NOTE | 2019-02-15 19:50 | OP ---
Operative Note - Note: Operative Date: 02/15/19 Pre-Operative Diagnosis: Gangrene left toes Operation: Ultrasound guided cannulation left femoral artery. Revascuarization of femoral artery with angioplasty. Revascularization of posterior tibial artery with angioplasty Findings: Diffuse calcification of all vessels. Multiple stenoses 70-80% in SFA and popliteal arteries Stenosis of TP trunk with disease CHEMICAL TECHNICIAN in calf. Occlusion of distal CHEMICAL TECHNICIAN with reconstitution of plantar vessels in foot. Occlusion of ANA and peroneal. 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
[2019-02-15] MEDS ORDERED: DEXTROSE 5%-0.45% SALINE 1,000 ML IV SCH (20:15)
[2019-02-15] MEDS ORDERED: PROTAMINE SULFATE 50 MG/5 ML VIAL ONE (20:19)
[2019-02-15] MEDS ORDERED: INSULIN (NOVOLOG) ASPART 100 UNITS/ML 10ML VIAL ONE (22:23)
[2019-02-15] MEDS: ATORVASTATIN CA 20 MG TABLET (FP) PO SCH ×2 (22:26→22:28)
--- NOTE | 2019-02-15 23:00 | PN ---
Progress Note, Physician Chief Complaint: sp angiogram left foot for gangrene - Current Medication List Current Medications: Active Medications Acetaminophen (Tylenol -) 650 mg PO Q6H PRN PRN Reason: PAIN LEVEL 6-10 Amlodipine Besylate (Norvasc -) 5 mg PO DAILY [facility] Ascorbic Acid (Vitamin C -) 250 mg PO BID [facility] Last Admin: 02/15/19 22:28 Dose: 250 mg Aspirin (Ecotrin -) 81 mg PO DAILY [facility] Atorvastatin Calcium (Lipitor -) 20 mg PO HS [facility] Last Admin: 02/15/19 22:28 Dose: 20 mg Heparin Sodium (Porcine) (Heparin -) 5,000 unit SQ BID [facility] Dextrose/Sodium Chloride (D5-1/2ns -) 1,000 mls @ 60 mls/hr IV ASDIR [facility] Last Admin: 02/15/19 21:15 Dose: 0 mls Ceftriaxone Sodium 1 gm/ (Dextrose) 50 mls @ 100 mls/hr IVPB DAILY [facility]; Protocol Insulin Aspart (Novolog Vial Sliding Scale -) 1 vial SQ ACHS [facility]; Protocol Insulin Detemir (Levemir Vial) 20 units SQ DAILY@0700 [facility] Ondansetron HCl (Zofran Injection) 4 mg IVPUSH Q6H PRN PRN Reason: NAUSEA AND/OR VOMITING Ondansetron HCl (Zofran Injection) 4 mg IVPUSH Q6H PRN PRN Reason: NAUSEA AND/OR VOMITING Oxycodone HCl (Roxicodone -) 5 mg PO Q4H PRN PRN Reason: PAIN LEVEL 1-5 Stop: 02/16/19 17:55 Oxycodone HCl (Roxicodone -) 10 mg PO Q4H PRN PRN Reason: PAIN LEVEL 6-10 Promethazine HCl (Phenergan Injection -) 12.5 mg IVPUSH Q6H PRN PRN Reason: NAUSEA-FOR RESCUE AFTER 15 MIN Promethazine HCl (Phenergan Injection -) 12.5 mg IVPUSH Q6H PRN PRN Reason: NAUSEA-FOR RESCUE AFTER 15 MIN Zinc Sulfate (Orazinc -) 220 mg PO DAILY [facility] - Objective Vital Signs: Vital Signs Temperature 97.6 F 02/15/19 21:15 Pulse Rate 100 H 02/15/19 21:15 Respiratory Rate 18 02/15/19 21:15 Blood Pressure 135/61 02/15/19 21:15 O2 Sat by Pulse Oximetry (%) 99 02/15/19 21:15 Constitutional: Yes: No Distress Eyes: Yes: EOM Intact HENT: Yes: Normocephalic Neck: Yes: WNL Cardiovascular: Yes: Tachycardia Respiratory: Yes: CTA Bilaterally Gastrointestinal: Yes: Normal Bowel Sounds ...Rectal Exam: Yes: Deferred Genitourinary: Yes: WNL Musculoskeletal: Yes: WNL Extremities: Yes: Cool, Delayed Capillary Refill, Erythema Edema: No Peripheral Pulses WNL: No Labs: CBC, BMP 02/12/19 10:10 02/12/19 10:10 INR, PTT INR 0.97 (0.83-1.09) 02/08/19 15:11 Problem List - Problems (1) Type 2 diabetes mellitus with hyperosmolarity without nonketotic hyperglycemic-hyperosmolar coma ([facility]) Code(s): E11.00 - TYPE 2 DIAB W HYPROSM W/O NONKET HYPRGLY-HYPROS COMA ([facility]) (2) Gangrene Code(s): I96 - GANGRENE, NOT ELSEWHERE CLASSIFIED (3) Gangrene of left foot Code(s): I96 - GANGRENE, NOT ELSEWHERE CLASSIFIED (4) Altered mental status Code(s): R41.82 - ALTERED MENTAL STATUS, UNSPECIFIED Qualifiers: Altered mental status type: unspecified Qualified Code(s): R41.82 - Altered mental status, unspecified Assessment/Plan Current Active Problems Gangrene (Acute) Gangrene of left foot (Acute) Gangrene of toe of left foot (Acute) HLD (hyperlipidemia) (Acute) HTN (hypertension) (Acute) Type 2 diabetes mellitus with hyperosmolarity without nonketotic hyperglycemic- hyperosmolar coma ([facility]) (Acute) Laboratory Results - last 24 hr 02/15/19 02/15/19 02/15/19 05:29 11:45 20:54 POC Glucometer 212 224 193 plan: Current Medications Generic Name Dose Route Start Last Admin Trade Name Freq PRN Reason Stop Dose Admin Acetaminophen 650 mg 02/15/19 20:28 Tylenol - PO Q6H PRN PAIN LEVEL 6-10 Amlodipine Besylate 5 mg 02/16/19 10:00 Norvasc - PO DAILY [facility] Ascorbic Acid 250 mg 02/15/19 22:00 02/15/19 22:28 Vitamin C - PO 250 mg BID [facility] Administration Aspirin 81 mg 02/16/19 10:00 Ecotrin - PO DAILY [facility] Atorvastatin Calcium 20 mg 02/15/19 22:00 02/15/19 22:28 Lipitor - PO 20 mg HS [facility] Administration Heparin Sodium (Porcine) 5,000 unit 02/15/19 22:00 Heparin - SQ BID [facility] Dextrose/Sodium Chloride 1,000 mls @ 60 mls/hr 02/15/19 20:15 02/15/19 21:15 D5-1/2ns - IV 0 mls ASDIR [facility] Administration Ceftriaxone Sodium 1 gm/ 50 mls @ 100 mls/hr 02/16/19 10:00 Dextrose IVPB DAILY [facility] Protocol Insulin Aspart 1 vial 02/15/19 22:00 02/15/19 22:57 Novolog Vial Sliding Scale - SQ 2 units ACHS [facility] Administration Protocol Insulin Detemir 20 units 02/16/19 07:00 Levemir Vial SQ DAILY@0700 [facility] Ondansetron HCl 4 mg 02/15/19 20:28 Zofran Injection IVPUSH Q6H PRN NAUSEA AND/OR VOMITING Ondansetron HCl 4 mg 02/15/19 20:28 Zofran Injection IVPUSH Q6H PRN NAUSEA AND/OR VOMITING Oxycodone HCl 5 mg 02/15/19 20:28 Roxicodone - PO 02/16/19 17:55 Q4H PRN PAIN LEVEL 1-5 Oxycodone HCl 10 mg 02/15/19 20:28 Roxicodone - PO Q4H PRN PAIN LEVEL 6-10 Promethazine HCl 12.5 mg 02/15/19 20:28 Phenergan Injection - IVPUSH Q6H PRN NAUSEA-FOR RESCUE AFTER 15 MIN Promethazine HCl 12.5 mg 02/15/19 20:28 Phenergan Injection - IVPUSH Q6H PRN NAUSEA-FOR RESCUE AFTER 15 MIN Zinc Sulfate 220 mg 02/16/19 10:00 Orazinc - PO DAILY [facility]
[2019-02-16] MEDS ORDERED: INSULIN (LEVEMIR) 100 UNITS/ML UNITS SQ ONE (05:52)
[2019-02-16] MEDS: INSULIN SLIDING SCALE (NOVOLOG) 1 VIAL SQ SCH ×4 (06:05→21:22)
[2019-02-16] MEDS: INSULIN (LEVEMIR) 100 UNITS/ML UNITS SQ SCH (06:05)
[2019-02-16] MEDS ORDERED: PT OWN MED DRAWER 7, Y5N ONE (06:30)
--- NOTE | 2019-02-16 08:33 | PN ---
Progress Note, Physician - Current Medication List Current Medications: Active Medications Acetaminophen (Tylenol -) 650 mg PO Q6H PRN PRN Reason: PAIN LEVEL 6-10 Amlodipine Besylate (Norvasc -) 5 mg PO DAILY [facility] Ascorbic Acid (Vitamin C -) 250 mg PO BID [facility] Last Admin: 02/15/19 22:28 Dose: 250 mg Aspirin (Ecotrin -) 81 mg PO DAILY [facility] Atorvastatin Calcium (Lipitor -) 20 mg PO HS [facility] Last Admin: 02/15/19 22:28 Dose: 20 mg Heparin Sodium (Porcine) (Heparin -) 5,000 unit SQ BID [facility] Dextrose/Sodium Chloride (D5-1/2ns -) 1,000 mls @ 60 mls/hr IV ASDIR [facility] Last Admin: 02/15/19 21:15 Dose: 0 mls Ceftriaxone Sodium 1 gm/ (Dextrose) 50 mls @ 100 mls/hr IVPB DAILY [facility]; Protocol Insulin Aspart (Novolog Vial Sliding Scale -) 1 vial SQ ACHS [facility]; Protocol Last Admin: 02/16/19 06:05 Dose: 2 units Insulin Detemir (Levemir Vial) 20 units SQ DAILY@0700 [facility] Last Admin: 02/16/19 06:05 Dose: 20 units Ondansetron HCl (Zofran Injection) 4 mg IVPUSH Q6H PRN PRN Reason: NAUSEA AND/OR VOMITING Ondansetron HCl (Zofran Injection) 4 mg IVPUSH Q6H PRN PRN Reason: NAUSEA AND/OR VOMITING Oxycodone HCl (Roxicodone -) 5 mg PO Q4H PRN PRN Reason: PAIN LEVEL 1-5 Stop: 02/16/19 17:55 Oxycodone HCl (Roxicodone -) 10 mg PO Q4H PRN PRN Reason: PAIN LEVEL 6-10 Promethazine HCl (Phenergan Injection -) 12.5 mg IVPUSH Q6H PRN PRN Reason: NAUSEA-FOR RESCUE AFTER 15 MIN Promethazine HCl (Phenergan Injection -) 12.5 mg IVPUSH Q6H PRN PRN Reason: NAUSEA-FOR RESCUE AFTER 15 MIN Zinc Sulfate (Orazinc -) 220 mg PO DAILY [facility] - Objective Vital Signs: Vital Signs Temperature 98.2 F 02/16/19 02:00 Pulse Rate 104 H 02/16/19 02:00 Respiratory Rate 18 06/27/19 02:00 Blood Pressure 134/59 L 02/16/19 02:00 O2 Sat by Pulse Oximetry (%) 97 02/15/19 21:50 Cardiovascular: Yes: Regular Rate and Rhythm Respiratory: Yes: Regular, CTA Bilaterally Gastrointestinal: Yes: Normal Bowel Sounds, Soft Extremities: Yes: Other (gangrene 2 toes) Labs: CBC, BMP 02/12/19 10:10 02/12/19 10:10 INR, PTT INR 0.97 (0.83-1.09) 02/08/19 15:11 Assessment/Plan - Problems (1) Gangrene of left foot Assessment/Plan: -Vascular and Podiatry consult--ANGIOGRAM done Operative Date: 02/15/19 Pre-Operative Diagnosis: Gangrene left toes Operation: Ultrasound guided cannulation left femoral artery. Revascuarization of femoral artery with angioplasty. Revascularization of posterior tibial artery with angioplasty Findings: Diffuse calcification of all vessels. Multiple stenoses 70-80% in SFA and popliteal arteries Stenosis of TP trunk with disease CONVERTING OPERATOR in calf. Occlusion of distal CONVERTING OPERATOR with reconstitution of plantar vessels in foot. Occlusion of ANA and peroneal. -Arterial Doppler LLE results -L foot xray shows no sign of fracture or subluxation -ID on board -Ceftriaxone Code(s): I96 - GANGRENE, NOT ELSEWHERE CLASSIFIED (2) Dementia Assessment/Plan: -fall precaution -CLINICAL TRIAL ASSISTANT for swallow eval Code(s): F03.90 - UNSPECIFIED DEMENTIA WITHOUT BEHAVIORAL DISTURBANCE (3) Diabetes Assessment/Plan: -BGM ACHS -Levemir -HgA1c 7.9% Code(s): E11.9 - TYPE 2 DIABETES MELLITUS WITHOUT COMPLICATIONS Qualifiers: Diabetes mellitus type: type 2 (4) Severe protein-calorie malnutrition Assessment/Plan: -Dietary consult -Ensure Code(s): E43 - UNSPECIFIED SEVERE PROTEIN-CALORIE MALNUTRITION (5) HTN (hypertension) Assessment/Plan: -Amlodipine -low Na Code(s): I10 - ESSENTIAL (PRIMARY) HYPERTENSION (6) HLD (hyperlipidemia) Assessment/Plan: -Atorvastatin Code(s): E78.5 - HYPERLIPIDEMIA, UNSPECIFIED
[2019-02-16 08:56] LABS: HEMATOCRIT 22.1 % (32.4-45.2); HEMOGLOBIN 7.2 GM/dL (10.7-15.3); MCH 23.6 pg (25.7-33.7); MCHC 32.3 g/dl (32.0-36.0); MEAN CELL VOLUME 72.9 fl (80-96); MEAN PLT VOLUME 9.6 fl (7.5-11.1); PLATELET COUNT 98 K/MM3 (134-434); RBC 3.03 M/mm3 (3.60-5.2); RDW 13.3 % (11.6-15.6); WHITE BLOOD COUNT 3.7 K/mm3 (4.0-10.0)
--- NOTE | 2019-02-16 08:56 | SPA.POSTOP ---
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 Laying in bed in NAD. Pt nonverbal. No issues overnight. Per RN pt voided in diaper overnight. Vital Signs Temp 98.2 F 02/16/19 02:00 Pulse 104 H 02/16/19 02:00 Resp 18 02/16/19 02:00 BP 134/59 L 02/16/19 02:00 Pulse Ox 97 02/15/19 21:50 Intake & Output 02/15/19 02/15/19 02/16/19 11:59 23:59 11:59 Intake Total 150 1480 540 Output Total 10 Balance 150 1470 540 Weight 71 lb 3 oz Intake: IV 1350 540 D5-1/2Ns - 1,000 ml @ 60 540 mls/hr IV ASDIR [facility] Rx#: [id number] IVPB 150 Oral 0 130 Output: Urine 0 Estimated Blood Loss 10 Other: Voiding Method Incontinent Incontinent # Unmeasured Voids Void 1 0 Bowel Movement No Weight Measurement Method [facility] Gen: awake, alert, nad Resp: unlabored on RA Groin: L groin with dressing c/d/i, no palpable hematoma. Palpable femoral pulse Lower Ext: L foot with dry gangrene over lateral half of big toe and medial half of 2nd digit. No purulent drainage. 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 Afebrile, low grade tachycardia (has been persistent since beginning of admission) H/H 7.2/22.1 today from 9.9/30.6 yesterday likely dilutional (spoke with Dr Brasher who will repeat labs today) Groin dressing c/d/i, no palpable hematoma present. -Continue ASA 81mg daily, continue statin -Podiatry following for toe amps -Betadine solution to toe gangrene -Pt should f/u w/ Dr Zhu in 2 weeks after d/c d/w attending Dr Zhu
[2019-02-16 09:19] LABS: BLOOD UREA NITROGEN 15.4 mg/dL (7-18); CREATININE 0.5 mg/dL (0.55-1.3); POTASSIUM 4.4 mmol/L (3.5-5.1)
[2019-02-16] MEDS ORDERED: DEXTROSE 5%-WATER - 50 ML IVPB ONE (09:59)
[2019-02-16] MEDS ORDERED: cefTRIAXone SODIUM 1 GM VIAL ONE (09:59)
[2019-02-16] MEDS: ASPIRIN COATED 81 MG TABLET.EC PO SCH (10:25)
[2019-02-16] MEDS: ZINC SULFATE 220 MG CAPSULE (FP) PO SCH (10:25)
[2019-02-16] MEDS: HEPARIN NA (PORCINE) 5,000 UNITS/ML 1ML VIAL SQ SCH ×2 (10:26→21:21)
[2019-02-16] MEDS: amLODIPine BESYLATE 5 MG TABLET (FP) PO SCH (10:26)
[2019-02-16] MEDS: CEFTRIAXONE 1 GM in DEXTROSE 5%-WATER - 50 ML IVPB SCH (10:26)
[2019-02-16] MEDS: ASCORBIC ACID 250 MG TABLET (FP) PO SCH ×2 (10:26→21:22)
[2019-02-16 10:36] LABS: BASO % 0.6 % (0-2.0); HEMATOCRIT 22.6 % (32.4-45.2); HEMOGLOBIN 7.4 GM/dL (10.7-15.3); LYMPH % 26.5 % (8-40); MCH 23.8 pg (25.7-33.7); MCHC 32.5 g/dl (32.0-36.0); MEAN CELL VOLUME 73.3 fl (80-96); MEAN PLT VOLUME 9.4 fl (7.5-11.1); MONO % 5.7 % (3.8-10.2); NEUT % 67.2 % (42.8-82.8); PLATELET COUNT 104 K/MM3 (134-434); RBC 3.09 M/mm3 (3.60-5.2); RDW 13.5 % (11.6-15.6); WHITE BLOOD COUNT 3.6 K/mm3 (4.0-10.0)
--- NOTE | 2019-02-16 12:51 | PN ---
Progress Note, Physician Chief Complaint: s.p left angiogram post opday one History of Present Illness: under general anesthesia - Current Medication List Current Medications: Active Medications Acetaminophen (Tylenol -) 650 mg PO Q6H PRN PRN Reason: PAIN LEVEL 6-10 Amlodipine Besylate (Norvasc -) 5 mg PO DAILY [facility] Last Admin: 02/16/19 10:26 Dose: 5 mg Ascorbic Acid (Vitamin C -) 250 mg PO BID [facility] Last Admin: 02/16/19 10:26 Dose: 250 mg Aspirin (Ecotrin -) 81 mg PO DAILY [facility] Last Admin: 02/16/19 10:25 Dose: 81 mg Atorvastatin Calcium (Lipitor -) 20 mg PO HS [facility] Last Admin: 02/15/19 22:28 Dose: 20 mg Heparin Sodium (Porcine) (Heparin -) 5,000 unit SQ BID [facility] Last Admin: 02/16/19 10:26 Dose: 5,000 unit Dextrose/Sodium Chloride (D5-1/2ns -) 1,000 mls @ 60 mls/hr IV ASDIR [facility] Last Admin: 02/15/19 21:15 Dose: 0 mls Ceftriaxone Sodium 1 gm/ (Dextrose) 50 mls @ 100 mls/hr IVPB DAILY [facility]; Protocol Last Admin: 02/16/19 10:26 Dose: 100 mls/hr Insulin Aspart (Novolog Vial Sliding Scale -) 1 vial SQ ACHS [facility]; Protocol Last Admin: 02/16/19 11:39 Dose: 2 units Insulin Detemir (Levemir Vial) 20 units SQ DAILY@0700 [facility] Last Admin: 02/16/19 06:05 Dose: 20 units Ondansetron HCl (Zofran Injection) 4 mg IVPUSH Q6H PRN PRN Reason: NAUSEA AND/OR VOMITING Ondansetron HCl (Zofran Injection) 4 mg IVPUSH Q6H PRN PRN Reason: NAUSEA AND/OR VOMITING Oxycodone HCl (Roxicodone -) 5 mg PO Q4H PRN PRN Reason: PAIN LEVEL 1-5 Stop: 02/16/19 17:55 Oxycodone HCl (Roxicodone -) 10 mg PO Q4H PRN PRN Reason: PAIN LEVEL 6-10 Promethazine HCl (Phenergan Injection -) 12.5 mg IVPUSH Q6H PRN PRN Reason: NAUSEA-FOR RESCUE AFTER 15 MIN Promethazine HCl (Phenergan Injection -) 12.5 mg IVPUSH Q6H PRN PRN Reason: NAUSEA-FOR RESCUE AFTER 15 MIN Zinc Sulfate (Orazinc -) 220 mg PO DAILY [facility] Last Admin: 02/16/19 10:25 Dose: 220 mg - Objective Vital Signs: Vital Signs Temperature 98.2 F 02/16/19 02:00 Pulse Rate 104 H 02/16/19 02:00 Respiratory Rate 18 02/16/19 02:00 Blood Pressure 134/59 L 02/16/19 02:00 O2 Sat by Pulse Oximetry (%) 97 02/15/19 21:50 Constitutional: Yes: Well Nourished Cardiovascular: Yes: WNL Respiratory: Yes: WNL Gastrointestinal: Yes: WNL Labs: CBC, BMP 02/16/19 10:15 02/16/19 08:40 INR, PTT INR 0.97 (0.83-1.09) 02/08/19 15:11 Assessment/Plan no adverse reaction to anesthetic, dept of anesthesiology will sign off care at this time
--- NOTE | 2019-02-16 15:04 | PN ---
Progress Note (short form) - Note Progress Note: FUV left foot. Patient scheduled today for angiogram. present wants me to talk to his daughter Radha as well. vss, Tmax 98.2 +ganagrene left foot toes 1&2, +dry, gangarene pvd Discussed with Dr. Zhu through Text. He revascularized as best as possible and stated he would tell to speak to me about toe amputations. Discussed with Radha, daughter, Jean. Gave options of doing nothing and watching foot closely vs amputation of toes and the care that follows. They both concluded after discussion to observe closely and avoid an invasive procedure at this time. Will follow while in hopsital. Recommend that she get daily betadine dressing to foot wounds to keep dry and clean. Can return to [facility] weekly to follow up with me. Family understood.
[2019-02-16] MEDS: ACETAMINOPHEN 325 MG TABLET (FP) PO PRN ×2 (16:08→21:22)
[2019-02-16] MEDS ORDERED: INSULIN (NOVOLOG) ASPART 100 UNITS/ML 10ML VIAL ONE ×2 (16:58→21:15)
[2019-02-16] MEDS: ATORVASTATIN CA 20 MG TABLET (FP) PO SCH (21:22)
[2019-02-17] MEDS ORDERED: FUROSEMIDE 40 MG/4 ML INJECTABLE VIAL IVPUSH ONE (02:30)
[2019-02-17] MEDS: INSULIN (LEVEMIR) 100 UNITS/ML UNITS SQ SCH (06:17)
[2019-02-17] MEDS: INSULIN SLIDING SCALE (NOVOLOG) 1 VIAL SQ SCH ×4 (06:19→23:06)
[2019-02-17 07:45] LABS: ALBUMIN 3.2 g/dl (3.4-5.0); BLOOD UREA NITROGEN 10.1 mg/dL (7-18); CALCIUM 8.6 mg/dL (8.5-10.1); CREATININE 0.5 mg/dL (0.55-1.3); POTASSIUM 4.4 mmol/L (3.5-5.1); TOT PROT 6.2 g/dl (6.4-8.2)
[2019-02-17 07:53] LABS: INR 0.98 (0.83-1.09); PROTHROMBIN TIME (PATIENT) 11.6 SEC (9.7-13.0)
[2019-02-17 07:57] LABS: BASO % 0.7 % (0-2.0); HEMATOCRIT 26.6 % (32.4-45.2); HEMOGLOBIN 8.8 GM/dL (10.7-15.3); LYMPH % 38.7 % (8-40); MCH 25.1 pg (25.7-33.7); MCHC 33.2 g/dl (32.0-36.0); MEAN CELL VOLUME 75.6 fl (80-96); MONO % 4.6 % (3.8-10.2); RBC 3.51 M/mm3 (3.60-5.2); RDW 15.5 % (11.6-15.6); WHITE BLOOD COUNT 6.6 K/mm3 (4.0-10.0)
[2019-02-17 08:12] LABS: PLATELET COUNT 120 K/MM3 (134-434)
--- NOTE | 2019-02-17 09:38 | DS ---
Physical Examination Vital Signs: Vital Signs Temperature 98 F 02/17/19 05:43 Pulse Rate 100 H 02/17/19 05:43 Respiratory Rate 18 02/17/19 05:43 Blood Pressure 129/79 02/17/19 05:43 O2 Sat by Pulse Oximetry (%) 96 02/16/19 21:00 Cardiovascular: Yes: Regular Rate and Rhythm Respiratory: Yes: Regular, CTA Bilaterally Gastrointestinal: Yes: Normal Bowel Sounds, Soft Extremities: Yes: Other (gangrene 2 toes) Labs: CBC, BMP 02/17/19 06:00 02/17/19 06:00 Discharge Summary Reason For Visit: GANGRENE Current Active Problems Gangrene (Acute) Gangrene of left foot (Acute) Gangrene of toe of left foot (Acute) HLD (hyperlipidemia) (Acute) HTN (hypertension) (Acute) Type 2 diabetes mellitus with hyperosmolarity without nonketotic hyperglycemic- hyperosmolar coma ([facility]) (Acute) Hospital Course: - Problems (1) Gangrene of left foot Assessment/Plan: -Vascular and Podiatry consult--ANGIOGRAM done Operative Date: 02/15/19 Pre-Operative Diagnosis: Gangrene left toes Operation: Ultrasound guided cannulation left femoral artery. Revascuarization of femoral artery with angioplasty. Revascularization of posterior tibial artery with angioplasty Findings: Diffuse calcification of all vessels. Multiple stenoses 70-80% in SFA and popliteal arteries Stenosis of TP trunk with disease CANCER SPEC in calf. Occlusion of distal CANCER SPEC with reconstitution of plantar vessels in foot. Occlusion of ANA and peroneal. -Arterial Doppler LLE results -L foot xray shows no sign of fracture or subluxation -ID on board--abx per id -Ceftriaxone--id to evaluate prior to dc Code(s): I96 - GANGRENE, NOT ELSEWHERE CLASSIFIED (2) Dementia Assessment/Plan: -fall precaution -HARDWARE INSTALLATION COORDINATOR for swallow eval Code(s): F03.90 - UNSPECIFIED DEMENTIA WITHOUT BEHAVIORAL DISTURBANCE (3) Diabetes Assessment/Plan: -BGM ACHS -Levemir -HgA1c 7.9% Code(s): E11.9 - TYPE 2 DIABETES MELLITUS WITHOUT COMPLICATIONS Qualifiers: Diabetes mellitus type: type 2 (4) Severe protein-calorie malnutrition Assessment/Plan: -Dietary consult -Ensure Code(s): E43 - UNSPECIFIED SEVERE PROTEIN-CALORIE MALNUTRITION (5) HTN (hypertension) Assessment/Plan: -Amlodipine -low Na Code(s): I10 - ESSENTIAL (PRIMARY) HYPERTENSION (6) HLD (hyperlipidemia) Assessment/Plan: -Atorvastatin Code(s): E78.5 - HYPERLIPIDEMIA, UNSPECIFIED dc planning----SNF--[facility] - Instructions Disposition: HALF-WAY FACILITY - Home Medications Comprehensive Discharge Medication List: Ambulatory Orders Aspirin [Aspirin EC] 81 mg PO DAILY 02/08/19 Atorvastatin Ca [Lipitor] 20 mg PO HS 02/08/19 Insulin (Levemir) [Levemir Vial] 20 unit SQ DAILY 02/08/19 Acetaminophen [Tylenol .Regular Strength -] 650 mg PO Q6H PRN tablet 02/17/19 Amlodipine Besylate [Norvasc -] 5 mg PO DAILY tablet 02/17/19 Ascorbic Acid [Vitamin C -] 250 mg PO BID tablet 02/17/19 Heparin - 5,000 unit SQ BID vial 02/17/19 Insulin Sliding Scale [Novolog Vial Sliding Scale -] 1 vial SQ ACHS units 02/17 Zinc Sulfate [Orazinc -] 220 mg PO DAILY capsule 02/17/19
[2019-02-17] MEDS ORDERED: cefTRIAXone SODIUM 1 GM VIAL ONE (09:59)
[2019-02-17] MEDS ORDERED: DEXTROSE 5%-WATER - 50 ML IVPB ONE (09:59)
[2019-02-17] MEDS: ZINC SULFATE 220 MG CAPSULE (FP) PO SCH (10:04)
[2019-02-17] MEDS: ASPIRIN COATED 81 MG TABLET.EC PO SCH (10:04)
[2019-02-17] MEDS: amLODIPine BESYLATE 5 MG TABLET (FP) PO SCH (10:04)
[2019-02-17] MEDS: CEFTRIAXONE 1 GM in DEXTROSE 5%-WATER - 50 ML IVPB SCH (10:05)
[2019-02-17] MEDS: ASCORBIC ACID 250 MG TABLET (FP) PO SCH ×2 (10:05→21:31)
[2019-02-17] MEDS: HEPARIN NA (PORCINE) 5,000 UNITS/ML 1ML VIAL SQ SCH ×2 (10:20→21:31)
--- NOTE | 2019-02-17 11:05 | PN ---
Progress Note (short form) - Note Progress Note: NAD Left groin no swelling Foot warm, gangrene unchanged. Agree with plans for observation of foot. If no extension of gangrene can delay toe amputation. I will follow in office. Problem List - Problems (1) Gangrene of toe of left foot Code(s): I96 - GANGRENE, NOT ELSEWHERE CLASSIFIED
--- NOTE | 2019-02-17 13:28 | PN ---
Progress Note, Physician History of Present Illness: SUPINE IN BED MORE AWAKE AND ALERT CONFUSED AFEBRILE - Current Medication List Current Medications: Active Medications Acetaminophen (Tylenol -) 650 mg PO Q6H PRN PRN Reason: PAIN LEVEL 6-10 Last Admin: 02/16/19 21:22 Dose: 650 mg Amlodipine Besylate (Norvasc -) 5 mg PO DAILY [facility] Last Admin: 02/17/19 10:04 Dose: 5 mg Ascorbic Acid (Vitamin C -) 250 mg PO BID [facility] Last Admin: 02/17/19 10:05 Dose: 250 mg Aspirin (Ecotrin -) 81 mg PO DAILY [facility] Last Admin: 02/17/19 10:04 Dose: 81 mg Atorvastatin Calcium (Lipitor -) 20 mg PO HS [facility] Last Admin: 02/16/19 21:22 Dose: 20 mg Heparin Sodium (Porcine) (Heparin -) 5,000 unit SQ BID [facility] Last Admin: 02/16/19 21:21 Dose: 5,000 unit Ceftriaxone Sodium 1 gm/ (Dextrose) 50 mls @ 100 mls/hr IVPB DAILY [facility]; Protocol Last Admin: 02/17/19 10:05 Dose: 100 mls/hr Insulin Aspart (Novolog Vial Sliding Scale -) 1 vial SQ ACHS [facility]; Protocol Last Admin: 02/17/19 06:19 Dose: Not Given Insulin Detemir (Levemir Vial) 20 units SQ DAILY@0700 [facility] Last Admin: 02/17/19 06:17 Dose: 20 units Ondansetron HCl (Zofran Injection) 4 mg IVPUSH Q6H PRN PRN Reason: NAUSEA AND/OR VOMITING Ondansetron HCl (Zofran Injection) 4 mg IVPUSH Q6H PRN PRN Reason: NAUSEA AND/OR VOMITING Oxycodone HCl (Roxicodone -) 10 mg PO Q4H PRN PRN Reason: PAIN LEVEL 6-10 Promethazine HCl (Phenergan Injection -) 12.5 mg IVPUSH Q6H PRN PRN Reason: NAUSEA-FOR RESCUE AFTER 15 MIN Promethazine HCl (Phenergan Injection -) 12.5 mg IVPUSH Q6H PRN PRN Reason: NAUSEA-FOR RESCUE AFTER 15 MIN Zinc Sulfate (Orazinc -) 220 mg PO DAILY [facility] Last Admin: 02/17/19 10:04 Dose: 220 mg - Objective Vital Signs: Vital Signs Temperature 98 F 02/17/19 05:43 Pulse Rate 100 H 02/17/19 05:43 Respiratory Rate 18 02/17/19 05:43 Blood Pressure 129/79 02/17/19 05:43 O2 Sat by Pulse Oximetry (%) 96 02/16/19 21:00 Constitutional: Yes: No Distress, Cachectic Eyes: Yes: Conjunctiva Clear Cardiovascular: Yes: Regular Rate and Rhythm, S1, S2 Respiratory: Yes: CTA Bilaterally Gastrointestinal: Yes: Normal Bowel Sounds, Soft Extremities: Yes: Other (DRY GANGRENE L 1ST/ 2ND TOES) Labs: CBC, BMP 02/17/19 06:00 02/17/19 06:00 INR, PTT INR 0.98 (0.83-1.09) 02/17/19 06:00 Assessment/Plan GANGRENE L FOOT OBS SUBSTITUTE PO AUGMENTIN 500MG PO BID X 3D
[2019-02-17] MEDS: AMOX TR/POT CLAV 500MG/125MG TABLETS (FP) PO SCH (18:25)
[2019-02-17] MEDS ORDERED: INSULIN (NOVOLOG) ASPART 100 UNITS/ML 10ML VIAL ONE (21:12)
[2019-02-17] MEDS: ATORVASTATIN CA 20 MG TABLET (FP) PO SCH (21:31)
[2019-02-17 23:48] VITALS: BMI 13.8
[2019-02-18] MEDS: INSULIN SLIDING SCALE (NOVOLOG) 1 VIAL SQ SCH ×4 (06:40→22:48)
[2019-02-18] MEDS: INSULIN (LEVEMIR) 100 UNITS/ML UNITS SQ SCH (06:40)
[2019-02-18] MEDS: AMOX TR/POT CLAV 500MG/125MG TABLETS (FP) PO SCH ×2 (08:01→17:12)
--- NOTE | 2019-02-18 08:55 | OP ---
DATE OF OPERATION: 02/15/2019 SURGEON: Pito Zhu MD OPERATION: 1. Ultrasound-guided cannulation of the left femoral artery. 2. Revascularization of the femoral artery with angioplasty. 3. Revascularization of the posterior tibial artery with angioplasty. PREOPERATIVE DIAGNOSIS: Gangrene, left 1st and 2nd toes. POSTOPERATIVE DIAGNOSIS: Gangrene, left 1st and 2nd toes. ANESTHESIA: General. ANESTHESIOLOGIST: Checo Redding MD OPERATIVE FINDINGS: There was diffuse calcification of the arteries of the left lower extremity. There were multiple stenosis in the superficial femoral artery up to 70% to 80% as well as a 60% to 70% stenosis of the popliteal artery. The tibial peroneal trunk was narrow, and there was occlusion of the anterior tibial and peroneal artery in the calf. The posterior tibial artery was patent with multiple areas of severe stenosis up to 90%. It was occluded distally. Reconstitution of plantar artery in the foot was seen. OPERATIVE PROCEDURE: Following routine patient identification with side and site verification, general anesthesia was induced. The left groin was prepped with ChloraPrep. Using real-time duplex imaging, the left femoral artery was identified. A site for cannulation free of calcified plaque was chosen in the proximal superficial femoral artery. The artery was cannulated under ultrasound guidance using a micropuncture needle. A wire was passed distally, and the needle exchanged for a 5-Kyrgyz catheter. The catheter was then exchanged over wire for a 5-Kyrgyz sheath. Angiography was then performed using dilute contrast and digital technique with the above noted findings. A wire was advanced distally under fluoroscopic guidance through the superficial femoral artery into the popliteal artery, and was then directed into the posterior tibial artery. The wire and catheter were advanced distally to the point of occlusion of the posterior tibial artery, but a track through the occluded vessel could not be established. Patient was systemically heparinized. The posterior tibial artery was then balloon dilated with long 2-mm balloon. The popliteal and femoral artery were dilated with 5-mm balloons. Repeat imaging revealed patent vessels with improved luminal diameter and flow to the ankle. An area of dissection with arterial venous shunting was seen in the distal superficial femoral artery. A 5 mm x 4 cm balloon was inflated to 3 atmospheres and held in place for 2 minutes in this area. Repeat imaging revealed resolution of the dissection and fistula. The sheath was then removed, and a Mynx closure device used. Pressure was applied until any bleeding ceased, and the sterile dressing was applied. The patient was taken to the recovery area in stable condition. Keyonna [id number]
[2019-02-18] MEDS: ZINC SULFATE 220 MG CAPSULE (FP) PO SCH (10:00)
[2019-02-18] MEDS: amLODIPine BESYLATE 5 MG TABLET (FP) PO SCH (10:00)
[2019-02-18] MEDS: ASPIRIN COATED 81 MG TABLET.EC PO SCH (10:00)
[2019-02-18] MEDS: ASCORBIC ACID 250 MG TABLET (FP) PO SCH ×2 (10:00→21:38)
[2019-02-18] MEDS: HEPARIN NA (PORCINE) 5,000 UNITS/ML 1ML VIAL SQ SCH ×2 (10:01→21:38)
--- NOTE | 2019-02-18 12:38 | DS ---
Physical Examination Vital Signs: Vital Signs Temperature 98.2 F 02/18/19 06:00 Pulse Rate 84 02/18/19 06:00 Respiratory Rate 18 02/18/19 09:00 Blood Pressure 129/51 L 02/18/19 06:00 O2 Sat by Pulse Oximetry (%) 100 02/18/19 09:00 Cardiovascular: Yes: S1, S2 Respiratory: Yes: Regular, CTA Bilaterally Gastrointestinal: Yes: Normal Bowel Sounds, Soft Labs: CBC, BMP 02/17/19 06:00 02/17/19 06:00 Discharge Summary Reason For Visit: GANGRENE Current Active Problems Gangrene (Acute) Gangrene of left foot (Acute) Gangrene of toe of left foot (Acute) HLD (hyperlipidemia) (Acute) HTN (hypertension) (Acute) Type 2 diabetes mellitus with hyperosmolarity without nonketotic hyperglycemic- hyperosmolar coma ([facility]) (Acute) Hospital Course: Problems (1) Gangrene of left foot Assessment/Plan: -Vascular and Podiatry consult--ANGIOGRAM done Operative Date: 02/15/19 Pre-Operative Diagnosis: Gangrene left toes Operation: Ultrasound guided cannulation left femoral artery. Revascuarization of femoral artery with angioplasty. Revascularization of posterior tibial artery with angioplasty Findings: Diffuse calcification of all vessels. Multiple stenoses 70-80% in SFA and popliteal arteries Stenosis of TP trunk with disease DIRECTOR COMPLIANCE in calf. Occlusion of distal DIRECTOR COMPLIANCE with reconstitution of plantar vessels in foot. Occlusion of ANA and peroneal. -Arterial Doppler LLE results -L foot xray shows no sign of fracture or subluxation -ID on board--abx per id -Ceftriaxone--id changed to augmentin Code(s): I96 - GANGRENE, NOT ELSEWHERE CLASSIFIED (2) Dementia Assessment/Plan: -fall precaution -SOLAR SYSTEM INSTALLER for swallow eval Code(s): F03.90 - UNSPECIFIED DEMENTIA WITHOUT BEHAVIORAL DISTURBANCE (3) Diabetes Assessment/Plan: -BGM ACHS -Levemir -HgA1c 7.9% Code(s): E11.9 - TYPE 2 DIABETES MELLITUS WITHOUT COMPLICATIONS Qualifiers: Diabetes mellitus type: type 2 (4) Severe protein-calorie malnutrition Assessment/Plan: -Dietary consult -Ensure Code(s): E43 - UNSPECIFIED SEVERE PROTEIN-CALORIE MALNUTRITION (5) HTN (hypertension) Assessment/Plan: -Amlodipine -low Na Code(s): I10 - ESSENTIAL (PRIMARY) HYPERTENSION (6) HLD (hyperlipidemia) Assessment/Plan: -Atorvastatin Code(s): E78.5 - HYPERLIPIDEMIA, UNSPECIFIED dc planning----SNF--[facility] - Instructions Disposition: LONG-TERM FACILITY - Home Medications Comprehensive Discharge Medication List: Ambulatory Orders Aspirin [Aspirin EC] 81 mg PO DAILY 02/08/19 Atorvastatin Ca [Lipitor] 20 mg PO HS 02/08/19 Insulin (Levemir) [Levemir Vial] 20 unit SQ DAILY 02/08/19 Acetaminophen [Tylenol .Regular Strength -] 650 mg PO Q6H PRN tablet 02/17/19 Amlodipine Besylate [Norvasc -] 5 mg PO DAILY tablet 02/17/19 Ascorbic Acid [Vitamin C -] 250 mg PO BID tablet 02/17/19 Heparin - 5,000 unit SQ BID vial 02/17/19 Insulin Sliding Scale [Novolog Vial Sliding Scale -] 1 vial SQ ACHS units 02/17 Zinc Sulfate [Orazinc -] 220 mg PO DAILY capsule 02/17/19
--- NOTE | 2019-02-18 13:12 | PN ---
Progress Note (short form) - Note Progress Note: FUV left foot. and son present today. vss, +ganagrene left foot toes 1&2, +dry, unchanged wound gangarene pvd Pt going to half-way. Will follow up with Dr. Zhu and or myself for wound care. will follow till dc.
[2019-02-18] MEDS ORDERED: INSULIN (NOVOLOG) ASPART 100 UNITS/ML 10ML VIAL ONE (21:05)
[2019-02-18] MEDS: ATORVASTATIN CA 20 MG TABLET (FP) PO SCH (21:38)
[2019-02-19] MEDS: INSULIN (LEVEMIR) 100 UNITS/ML UNITS SQ SCH (06:52)
[2019-02-19] MEDS: INSULIN SLIDING SCALE (NOVOLOG) 1 VIAL SQ SCH ×4 (06:53→21:32)
[2019-02-19] MEDS: AMOX TR/POT CLAV 500MG/125MG TABLETS (FP) PO SCH ×2 (08:05→17:11)
[2019-02-19] MEDS: amLODIPine BESYLATE 5 MG TABLET (FP) PO SCH (09:12)
[2019-02-19] MEDS: ZINC SULFATE 220 MG CAPSULE (FP) PO SCH (09:12)
[2019-02-19] MEDS: HEPARIN NA (PORCINE) 5,000 UNITS/ML 1ML VIAL SQ SCH ×2 (09:13→21:32)
[2019-02-19] MEDS: ASPIRIN COATED 81 MG TABLET.EC PO SCH (09:14)
[2019-02-19] MEDS: ASCORBIC ACID 250 MG TABLET (FP) PO SCH ×2 (10:35→21:31)
--- NOTE | 2019-02-19 11:36 | DS ---
Physical Examination Vital Signs: Vital Signs Temperature 99.2 F 02/19/19 05:50 Pulse Rate 87 02/19/19 05:50 Respiratory Rate 18 02/19/19 05:50 Blood Pressure 124/55 L 02/19/19 05:50 O2 Sat by Pulse Oximetry (%) 100 02/18/19 21:00 Cardiovascular: Yes: S1, S2 Respiratory: Yes: Regular, CTA Bilaterally Gastrointestinal: Yes: Normal Bowel Sounds, Soft Labs: CBC, BMP 02/17/19 06:00 02/17/19 06:00 Discharge Summary Reason For Visit: GANGRENE Current Active Problems Gangrene (Acute) Gangrene of left foot (Acute) Gangrene of toe of left foot (Acute) HLD (hyperlipidemia) (Acute) HTN (hypertension) (Acute) Type 2 diabetes mellitus with hyperosmolarity without nonketotic hyperglycemic- hyperosmolar coma ([facility]) (Acute) Hospital Course: Problems (1) Gangrene of left foot Assessment/Plan: -Vascular and Podiatry consult--ANGIOGRAM done Operative Date: 02/15/19 Pre-Operative Diagnosis: Gangrene left toes Operation: Ultrasound guided cannulation left femoral artery. Revascuarization of femoral artery with angioplasty. Revascularization of posterior tibial artery with angioplasty Findings: Diffuse calcification of all vessels. Multiple stenoses 70-80% in SFA and popliteal arteries Stenosis of TP trunk with disease STOCK LETTERER in calf. Occlusion of distal STOCK LETTERER with reconstitution of plantar vessels in foot. Occlusion of ANA and peroneal. -Arterial Doppler LLE results -L foot xray shows no sign of fracture or subluxation -ID on board--abx per id -Ceftriaxone--id changed to augmentin Code(s): I96 - GANGRENE, NOT ELSEWHERE CLASSIFIED (2) Dementia Assessment/Plan: -fall precaution -CUT IN WORKER for swallow eval Code(s): F03.90 - UNSPECIFIED DEMENTIA WITHOUT BEHAVIORAL DISTURBANCE (3) Diabetes Assessment/Plan: -BGM ACHS -Levemir -HgA1c 7.9% Code(s): E11.9 - TYPE 2 DIABETES MELLITUS WITHOUT COMPLICATIONS Qualifiers: Diabetes mellitus type: type 2 (4) Severe protein-calorie malnutrition Assessment/Plan: -Dietary consult -Ensure Code(s): E43 - UNSPECIFIED SEVERE PROTEIN-CALORIE MALNUTRITION (5) HTN (hypertension) Assessment/Plan: -Amlodipine -low Na Code(s): I10 - ESSENTIAL (PRIMARY) HYPERTENSION (6) HLD (hyperlipidemia) Assessment/Plan: -Atorvastatin Code(s): E78.5 - HYPERLIPIDEMIA, UNSPECIFIED dc planning----SNF--[facility] - Instructions Disposition: SENIOR CARE FACILITY - Home Medications Comprehensive Discharge Medication List: Ambulatory Orders Aspirin [Aspirin EC] 81 mg PO DAILY 02/08/19 Atorvastatin Ca [Lipitor] 20 mg PO HS 02/08/19 Insulin (Levemir) [Levemir Vial] 20 unit SQ DAILY 02/08/19 Acetaminophen [Tylenol .Regular Strength -] 650 mg PO Q6H PRN tablet 02/17/19 Amlodipine Besylate [Norvasc -] 5 mg PO DAILY tablet 02/17/19 Ascorbic Acid [Vitamin C -] 250 mg PO BID tablet 02/17/19 Heparin - 5,000 unit SQ BID vial 02/17/19 Insulin Sliding Scale [Novolog Vial Sliding Scale -] 1 vial SQ ACHS units 02/17 Zinc Sulfate [Orazinc -] 220 mg PO DAILY capsule 02/17/19
[2019-02-19] MEDS ORDERED: INSULIN (NOVOLOG) ASPART 100 UNITS/ML 10ML VIAL ONE (21:11)
[2019-02-19] MEDS: ATORVASTATIN CA 20 MG TABLET (FP) PO SCH (21:31)
[2019-02-20] MEDS: INSULIN (LEVEMIR) 100 UNITS/ML UNITS SQ SCH (06:19)
[2019-02-20] MEDS: INSULIN SLIDING SCALE (NOVOLOG) 1 VIAL SQ SCH ×4 (06:20→22:18)
[2019-02-20] MEDS: AMOX TR/POT CLAV 500MG/125MG TABLETS (FP) PO SCH (07:38)
[2019-02-20] MEDS: ASPIRIN COATED 81 MG TABLET.EC PO SCH (10:27)
[2019-02-20] MEDS: HEPARIN NA (PORCINE) 5,000 UNITS/ML 1ML VIAL SQ SCH ×2 (10:27→22:37)
[2019-02-20] MEDS: ZINC SULFATE 220 MG CAPSULE (FP) PO SCH (10:27)
[2019-02-20] MEDS: ASCORBIC ACID 250 MG TABLET (FP) PO SCH ×2 (10:27→22:37)
[2019-02-20] MEDS: amLODIPine BESYLATE 5 MG TABLET (FP) PO SCH (10:27)
--- NOTE | 2019-02-20 10:43 | PN ---
Progress Note, Physician Chief Complaint: L foot 2nd digit Gangrene Dementia History of Present Illness: Previous notes and events reviewed awake and alert non-verbal NAD patient being discharged to SNF today - Current Medication List Current Medications: Active Medications Acetaminophen (Tylenol -) 650 mg PO Q6H PRN PRN Reason: PAIN LEVEL 6-10 Last Admin: 02/16/19 21:22 Dose: 650 mg Amlodipine Besylate (Norvasc -) 5 mg PO DAILY [facility] Last Admin: 02/20/19 10:27 Dose: 5 mg Amoxicillin/Clavulanate Potassium (Augmentin - 500mg Tablet) 1 tab PO BID@0800, 1730 [facility] Last Admin: 02/20/19 07:38 Dose: 1 tab Ascorbic Acid (Vitamin C -) 250 mg PO BID [facility] Last Admin: 02/20/19 10:27 Dose: 250 mg Aspirin (Ecotrin -) 81 mg PO DAILY [facility] Last Admin: 02/20/19 10:27 Dose: 81 mg Atorvastatin Calcium (Lipitor -) 20 mg PO HS [facility] Last Admin: 02/19/19 21:31 Dose: 20 mg Heparin Sodium (Porcine) (Heparin -) 5,000 unit SQ BID [facility] Last Admin: 02/20/19 10:27 Dose: 5,000 unit Insulin Aspart (Novolog Vial Sliding Scale -) 1 vial SQ [facility]; Protocol Last Admin: 02/20/19 06:20 Dose: Not Given Insulin Detemir (Levemir Vial) 20 units SQ DAILY@0700 [facility] Last Admin: 02/20/19 06:19 Dose: 20 units Ondansetron HCl (Zofran Injection) 4 mg IVPUSH Q6H PRN PRN Reason: NAUSEA AND/OR VOMITING Ondansetron HCl (Zofran Injection) 4 mg IVPUSH Q6H PRN PRN Reason: NAUSEA AND/OR VOMITING Promethazine HCl (Phenergan Injection -) 12.5 mg IVPUSH Q6H PRN PRN Reason: NAUSEA-FOR RESCUE AFTER 15 MIN Promethazine HCl (Phenergan Injection -) 12.5 mg IVPUSH Q6H PRN PRN Reason: NAUSEA-FOR RESCUE AFTER 15 MIN Zinc Sulfate (Orazinc -) 220 mg PO DAILY [facility] Last Admin: 02/20/19 10:27 Dose: 220 mg - Objective Vital Signs: Vital Signs Temperature 97.6 F 02/20/19 05:52 Pulse Rate 97 H 02/20/19 05:52 Respiratory Rate 18 02/20/19 05:52 Blood Pressure 140/68 02/20/19 05:52 O2 Sat by Pulse Oximetry (%) 99 02/19/19 21:00 Constitutional: Yes: No Distress, Calm, Cachectic Eyes: Yes: Conjunctiva Clear HENT: Yes: Atraumatic Cardiovascular: Yes: Regular Rate and Rhythm Respiratory: Yes: Regular, CTA Bilaterally Gastrointestinal: Yes: Normal Bowel Sounds, Soft Genitourinary: Yes: Incontinence Musculoskeletal: Yes: Muscle Weakness Extremities: Yes: WNL Edema: No Wound/Incision: Yes: Dressing Dry and Intact Neurological: Yes: Alert, Pre-Existing Deficit Psychiatric: Yes: Alert Labs: CBC, BMP 02/17/19 06:00 02/17/19 06:00 INR, PTT INR 0.98 (0.83-1.09) 02/17/19 06:00 Microbiology 02/09/19 20:30 Blood - Peripheral Venous Blood Culture - Final NO GROWTH AFTER 5 DAYS INCUBATION 02/09/19 18:00 Blood - Peripheral Venous Blood Culture - Final NO GROWTH AFTER 5 DAYS INCUBATION Problem List - Problems (1) Gangrene of left foot Assessment/Plan: -Vascular and Podiatry consult -Arterial Doppler LLE pending -L foot xray shows no sign of fracture or subluxation -ID on board -Augmentin Code(s): I96 - GANGRENE, NOT ELSEWHERE CLASSIFIED (2) Dementia Assessment/Plan: -fall precaution -BOTTOM SANDER for swallow eval Code(s): F03.90 - UNSPECIFIED DEMENTIA WITHOUT BEHAVIORAL DISTURBANCE (3) Diabetes Assessment/Plan: -BGM ACHS -Levemir -HgA1c 7.9% Code(s): E11.9 - TYPE 2 DIABETES MELLITUS WITHOUT COMPLICATIONS Qualifiers: Diabetes mellitus type: type 2 (4) Severe protein-calorie malnutrition Assessment/Plan: -Dietary consult -Ensure Code(s): E43 - UNSPECIFIED SEVERE PROTEIN-CALORIE MALNUTRITION (5) HTN (hypertension) Assessment/Plan: -Amlodipine -low Na Code(s): I10 - ESSENTIAL (PRIMARY) HYPERTENSION (6) HLD (hyperlipidemia) Assessment/Plan: -Atorvastatin Code(s): E78.5 - HYPERLIPIDEMIA, UNSPECIFIED Assessment/Plan see problem list dvt ppx
[2019-02-20] MEDS: ATORVASTATIN CA 20 MG TABLET (FP) PO SCH (22:37)
[2019-02-21] MEDS: INSULIN SLIDING SCALE (NOVOLOG) 1 VIAL SQ SCH ×2 (06:05→11:43)
[2019-02-21] MEDS: INSULIN (LEVEMIR) 100 UNITS/ML UNITS SQ SCH (06:22)
[2019-02-21 09:36] VITALS: BP 120/59; PULSE 100; TEMP 97.9
[2019-02-21] MEDS ORDERED: PT OWN MED DRAWER 7, Y5N ONE (09:43)
[2019-02-21] MEDS ORDERED: INSULIN (NOVOLOG) ASPART 100 UNITS/ML 10ML VIAL ONE (09:43)
[2019-02-21] MEDS: ZINC SULFATE 220 MG CAPSULE (FP) PO SCH (09:56)
[2019-02-21] MEDS: amLODIPine BESYLATE 5 MG TABLET (FP) PO SCH (09:56)
[2019-02-21] MEDS: ASPIRIN COATED 81 MG TABLET.EC PO SCH (09:56)
[2019-02-21] MEDS: HEPARIN NA (PORCINE) 5,000 UNITS/ML 1ML VIAL SQ SCH (09:56)
[2019-02-21] MEDS: ACETAMINOPHEN 325 MG TABLET (FP) PO PRN (09:56)
[2019-02-21] MEDS: ASCORBIC ACID 250 MG TABLET (FP) PO SCH (10:00)
--- NOTE | 2019-02-21 15:01 | PN ---
Progress Note, Physician Chief Complaint: L foot 2nd digit Gangrene Dementia History of Present Illness: Previous notes and events reviewed awake and alert non-verbal NAD patient being discharged to SNF today\ no acute events overnight - Current Medication List Current Medications: Active Medications Acetaminophen (Tylenol -) 650 mg PO Q6H PRN PRN Reason: PAIN LEVEL 6-10 Last Admin: 02/21/19 09:56 Dose: 650 mg Amlodipine Besylate (Norvasc -) 5 mg PO DAILY [facility] Last Admin: 02/21/19 09:56 Dose: 5 mg Ascorbic Acid (Vitamin C -) 250 mg PO BID [facility] Last Admin: 02/21/19 10:00 Dose: 250 mg Aspirin (Ecotrin -) 81 mg PO DAILY [facility] Last Admin: 02/21/19 09:56 Dose: 81 mg Atorvastatin Calcium (Lipitor -) 20 mg PO HS [facility] Last Admin: 02/20/19 22:37 Dose: 20 mg Heparin Sodium (Porcine) (Heparin -) 5,000 unit SQ BID [facility] Last Admin: 02/21/19 09:56 Dose: 5,000 unit Insulin Aspart (Novolog Vial Sliding Scale -) 1 vial SQ [facility]; Protocol Last Admin: 02/21/19 11:43 Dose: Not Given Insulin Detemir (Levemir Vial) 20 units SQ DAILY@0700 [facility] Last Admin: 02/21/19 06:22 Dose: 20 units Ondansetron HCl (Zofran Injection) 4 mg IVPUSH Q6H PRN PRN Reason: NAUSEA AND/OR VOMITING Ondansetron HCl (Zofran Injection) 4 mg IVPUSH Q6H PRN PRN Reason: NAUSEA AND/OR VOMITING Promethazine HCl (Phenergan Injection -) 12.5 mg IVPUSH Q6H PRN PRN Reason: NAUSEA-FOR RESCUE AFTER 15 MIN Promethazine HCl (Phenergan Injection -) 12.5 mg IVPUSH Q6H PRN PRN Reason: NAUSEA-FOR RESCUE AFTER 15 MIN Zinc Sulfate (Orazinc -) 220 mg PO DAILY [facility] Last Admin: 02/21/19 09:56 Dose: 220 mg - Objective Vital Signs: Vital Signs Temperature 97.9 F 02/21/19 09:36 Pulse Rate 100 H 02/21/19 09:36 Respiratory Rate 18 02/21/19 09:36 Blood Pressure 120/59 L 02/21/19 09:36 O2 Sat by Pulse Oximetry (%) 97 02/20/19 21:00 Constitutional: Yes: No Distress, Calm, Cachectic Eyes: Yes: Conjunctiva Clear HENT: Yes: Atraumatic Cardiovascular: Yes: Regular Rate and Rhythm Respiratory: Yes: Regular, CTA Bilaterally Gastrointestinal: Yes: Normal Bowel Sounds, Soft Genitourinary: Yes: Incontinence Musculoskeletal: Yes: Muscle Weakness Extremities: Yes: WNL Edema: No Wound/Incision: Yes: Dressing Dry and Intact Neurological: Yes: Alert, Pre-Existing Deficit Psychiatric: Yes: Alert Labs: CBC, BMP 02/17/19 06:00 02/17/19 06:00 INR, PTT INR 0.98 (0.83-1.09) 02/17/19 06:00 Microbiology 02/09/19 20:30 Blood - Peripheral Venous Blood Culture - Final NO GROWTH AFTER 5 DAYS INCUBATION 02/09/19 18:00 Blood - Peripheral Venous Blood Culture - Final NO GROWTH AFTER 5 DAYS INCUBATION Problem List - Problems (1) Gangrene of left foot Assessment/Plan: -Vascular and Podiatry consult -Arterial Doppler LLE pending -L foot xray shows no sign of fracture or subluxation -ID on board -Augmentin Code(s): I96 - GANGRENE, NOT ELSEWHERE CLASSIFIED (2) Dementia Assessment/Plan: -fall precaution -RETAIL EQUIPMENT ASSOCIATE for swallow eval Code(s): F03.90 - UNSPECIFIED DEMENTIA WITHOUT BEHAVIORAL DISTURBANCE (3) Diabetes Assessment/Plan: -BGM ACHS -Levemir -HgA1c 7.9% Code(s): E11.9 - TYPE 2 DIABETES MELLITUS WITHOUT COMPLICATIONS Qualifiers: Diabetes mellitus type: type 2 (4) Severe protein-calorie malnutrition Assessment/Plan: -Dietary consult -Ensure Code(s): E43 - UNSPECIFIED SEVERE PROTEIN-CALORIE MALNUTRITION (5) HTN (hypertension) Assessment/Plan: -Amlodipine -low Na Code(s): I10 - ESSENTIAL (PRIMARY) HYPERTENSION (6) HLD (hyperlipidemia) Assessment/Plan: -Atorvastatin Code(s): E78.5 - HYPERLIPIDEMIA, UNSPECIFIED Assessment/Plan see problem list dvt ppx discharge to SNF today
== END 2019-02-21 15:13 | DRG 252 ==
LOC: JER 12:43 → JERBED 18:21 → J6S 19:36
PROVIDERS: ADMIT Family Medicine; ATTEND Family Medicine
PROC: 047 Lower Arteries, Dilation (ICD-10-PCS; 2019-02-15)
PROC: 047L3Z1 Dilation of Left Femoral Artery using Drug-Coated Balloon, Percutaneous Approach (ICD-10-PCS; principal; 2019-02-15 16:00)
PROC: 30233N1 Transfusion of Nonautologous Red Blood Cells into Peripheral Vein, Percutaneous Approach (ICD-10-PCS; 2019-02-16)
DX: E11.52 Type 2 diabetes mellitus with diabetic peripheral angiopathy with gangrene (principal); E43 Unspecified severe protein-calorie malnutrition; I96 Gangrene, not elsewhere classified; Z68.1 Body mass index [BMI] 19.9 or less, adult; R64 Cachexia; E78.5 Hyperlipidemia, unspecified; I10 Essential (primary) hypertension; F03.90 Unspecified dementia, unspecified severity, without behavioral disturbance, psychotic disturbance, mood disturbance, and anxiety; R00.0 Tachycardia, unspecified; D64.9 Anemia, unspecified
CPT/HCPCS: 36415; 36430; 36511; 73630-TC-LT; 76000-TC-FY; 80048; 80053; 82962; 83036; 83735; 84100; 84436; 84443; 84484; 85025; 85027; 85610; 86850; 86900; 86901; 86922; 87040; 93005; 93010; 93923; 94760; 97116-GP; 99282-25; J1644; P9038; P9058

== ENCOUNTER 2019-03-20 13:57 | Inpatient (IN) | payer OTHER ==
[2019-03-20] MEDS ORDERED: ACETAMINOPHEN 1000 MG/100 ML VIAL (NON FORMULARY) IVPB ONE (14:26)
[2019-03-20] MEDS ORDERED: SODIUM CHLORIDE 0.9% 500 ML INFUS.BAG IV ONE ×2 (14:26)
[2019-03-20] MEDS ORDERED: ACETAMINOPHEN INJECTION 100 ML IVPB ONE (15:00)
[2019-03-20 15:22] LABS: VENOUS PC02 39.3 mmHg (41-51); VENOUS PO2 43.6 mmHg (30-40)
[2019-03-20 15:27] LABS: BASO % 1.3 % (0-2.0); HEMATOCRIT 37.1 % (32.4-45.2); HEMOGLOBIN 10.4 GM/dL (10.7-15.3); LYMPH % 26.3 % (8-40); MCH 23.1 pg (25.7-33.7); MCHC 27.9 g/dl (32.0-36.0); MEAN CELL VOLUME 82.7 fl (80-96); MEAN PLT VOLUME 11.7 fl (7.5-11.1); MONO % 4.6 % (3.8-10.2); NEUT % 67.8 % (42.8-82.8); PLATELET COUNT 144 K/MM3 (134-434); RBC 4.49 M/mm3 (3.60-5.2); RDW 17.6 % (11.6-15.6); WHITE BLOOD COUNT 9.9 K/mm3 (4.0-10.0)
[2019-03-20 15:29] LABS: VENOUS PH 7.17 (7.31-7.41)
[2019-03-20 15:38] LABS: INR 0.97 (0.83-1.09); PROTHROMBIN TIME (PATIENT) 11.5 SEC (9.7-13.0)
--- NOTE | 2019-03-20 15:45 | PDOC ---
Documentation entered by Becca Lai SCRIBE, acting as scribe for Leeanne Jacob MD. Leeanne Jacob MD: This documentation has been prepared by the scribe, Becca Lai SCRIBE, under my direction and personally reviewed by me in its entirety. I confirm that the documentation accurately reflects all work, treatment, procedures, and medical decision making performed by me. History of Present Illness - General Chief Complaint: Blood Pressure Problem Stated Complaint: Blood Pressure Problem Time Seen by Provider: 03/20/19 14:24 History Source: Spouse Exam Limitations: Clinical Condition, Dementia - History of Present Illness Initial Comments: 03/20/19 14:53 The patient is an 83-year-old female, with a past medical history of HTN, HLD, CVA (1996), T2DM with hyperosmolarity without nonketotic hyperglycemic- hyperosmolar coma ([facility]) (Acute), dementia, and gangrene of LT 1st, 2nd, and 3rd toes - recent admission and discharge in February 2019 for left foot/toe gangrene, s/p abx, changed and completed augmentin and currently on Bactrim x 1 week thus far per vascular, who presents to the ED with 2 days of decreased PO intake per and increased pain to LT foot. states that the patient is currently being followed by Dr. Zhu for dry gangrene to the LT 1st, 2nd, and 3rd toes. The patient has been unable to tolerate any solids, liquids, or medications due to nausea and vomiting. HPI is limited due to patients dementia and clinical condition. Allergies: NKA PCP: Dr. Judson Forman Vascular Dr Zhu 03/20/19 15:43 Past History - Past Medical History Allergies/Adverse Reactions: Allergies Allergy/AdvReac Type Severity Reaction Status Date / Time No Known Allergies Allergy Verified 03/20/19 22:19 Home Medications: Ambulatory Orders Aspirin [Aspirin EC] 81 mg PO DAILY 02/08/19 Atorvastatin Ca [Lipitor] 20 mg PO HS 02/08/19 Amlodipine Bes/Olmesartan Med [Amlodipine-Olmesartan 5-20 mg] 1 each PO DAILY Ferrous Sulfate [Feosol] 325 mg PO DAILY 03/20/19 Sulfamethoxazole/Trimethoprim [Bactrim Ds Tablet] 1 each PO DAILY 03/20/19 CVA: Yes (1996) COPD: No Dementia: Yes Diabetes: Yes HTN: Yes Hypercholesterolemia: Yes - Immunization History Immunization Up to Date: Yes - Suicide/Smoking/Psychosocial Hx Smoking Status: No Smoking History: Unknown if ever smoked Have you smoked in the past 12 months: No Number of Cigarettes Smoked Daily: 0 Hx Alcohol Use: No Drug/Substance Use Hx: No Substance Use Type: None Review of Systems - Review of Systems Able to Perform ROS?: No Comments:: 03/20/19 14:53 ROS is limited due to patient's dementia and clinical condition. *Physical Exam - Vital Signs Last Vital Signs Temp Pulse Resp BP Pulse Ox 102.7 F H 126 H 19 80/47 L 100 03/20/19 14:00 03/20/19 14:00 03/20/19 14:00 03/20/19 14:00 03/20/19 14:00 - Physical Exam Comments: 03/20/19 14:54 General: (+)Cachetic, thin and frail-appearing. nonverbal, demented. HEENT: PERRL, EOMI, clear conjunctiva, anicteric, dry mucus membranes, clear oropharynx, no oral lesions.. Neck: neck supple Resp: CTAB, mild tachypnea CVS: +tachycardic, no murmurs, 2+ peripheral pulses throughout, no peripheral edema Abdomen: soft, NTND, no rebound or guarding. Back: nontender, normal inspection and ROM MSK: no edema, CAVAZOS x4, ROM intact. No clubbing or cyanosis. normal bulk and tone. Extremities: (+)Dry gangrene to LT 1st, 2nd, and 3rd toes, malodorous, no purulence. Neuro: (+) Awake, but minimally responsive and minimally verbal. baseline dementia Skin: warm and well perfused, cap refill <2 sec, normal color, no rash. +left toes gangrene 03/20/19 15:43 03/21/19 14:28 ED Treatment Course - LABORATORY CBC & Chemistry Diagram: 03/21/19 05:55 03/21/19 08:43 - ADDITIONAL ORDERS Additional order review: Laboratory Results 03/20/19 03/20/19 14:48 14:48 PT with INR 11.50 INR 0.97 VBG pH 7.17 L* POC VBG pCO2 39.3 L POC VBG pO2 43.6 H VBG HCO3 13.9 L VBG O2 Sat (Kev) 58.6 L VBG Base Excess -13.8 L 03/20/19 14:48 RBC 4.49 MCV 82.7 D MCHC 27.9 L RDW 17.6 H MPV 11.7 H D Neutrophils % 67.8 D Lymphocytes % 26.3 D Monocytes % 4.6 Eosinophils % 0.0 Basophils % 1.3 - RADIOLOGY Radiology Studies Ordered: Category Date Time Status CHEST X-RAY PORTABLE* [RAD] Stat Radiology 03/20/19 14:24 Taken - Medications Given in the ED: ED Medications Discontinued Medications Generic Name Dose Route Start Last Admin Trade Name Freq PRN Reason Stop Dose Admin Acetaminophen 1,000 mg 03/20/19 14:26 03/20/19 15:10 Ofirmev Injection - IVPB 03/20/19 14:27 1,000 mg ONCE ONE Administration Sodium Chloride 1,000 ml 03/20/19 14:26 03/20/19 15:09 Normal Saline - IV 03/20/19 14:27 1,000 ml ONCE ONE Administration Medical Decision Making - Critical Care Time Total Critical Care Time (minutes): 80 (septic shock, hypovolemia, dehydration, metabolic crises) Critical Care Statement: The care of this patient involved high complexity decision making to prevent further life threatening deterioration of the patient 's condition and/or to evaluate & treat vital organ system(s) failure or risk of failure. - Medical Decision Making 03/20/19 15:44 See HPI for details. Prior notes reviewed, including admissions, discharges and consultations. Vital signs reviewed, febrile/tachy and hypotensive Vital Signs Temp Pulse Resp BP Pulse Ox 102.7 F H 115 H 23 H 99/63 100 03/20/19 14:00 03/20/19 15:39 03/20/19 15:39 03/20/19 15:39 03/20/19 14:00 DDx sepsis, infection, UTI, pneumonia, gangrene, osteomyelitis, bacteremia, dehydration, electrolyte/metabolic derangements. laboratory results and imaging reviewed, basic labs and lytes -hypernatremia, OSVALDO, dehydration profoundly, trop elevation could be demand ischemia/metabolic - acidotic, lactic acidosis. - multiple metabolic derangements, hyperglycemia, organ failure, renal failure and hypernatremia, likely from combo hypovolemia/dehydration/sepsis. CXR_POSSIBLE right sided opacity/consolidation vs aspiration. Cardiac panel_elevated torp c/w demand ischemia/metabolic EKG sinus tachycardia at 112 bpm no interval abnormalities, narrow QRS, ST and T wave segments and morphology normal. Nonspecific T wave abnormalities ED course -interventions: IV vancomycin, zosyn for sepsis/ likely from gangrene toe. initially sepsis boluses of 2L NSS ordered as profoundly dehydrated/hypotensive and required adequate fluid resuscitation, stopped and only received 1 liter, changed to 1/2 normal saline bolus due to hypernatremia, maintenance of 1/2 normal saline initiated. antibiotics, recheck lytes/lactic carpenter catheter, strict I/Os. maintaining airway, is tachypneic but with hemodynamic instability, caution with PPV. VBG with primary metabolic acidosis. called to respiratory for HFNC - can utilize to help with work of breathing/ tachypnea, and washout space given her tenuous hemodynamics and respiratory status, spO2 100% on NRB, maintaining airway/breathing now, 03/20/19 16:20 - ICU cs for higher level of care admit to Dr Marino service. 03/20/19 16:43 - accepted by ICU, can get central line with active fluid resuscitation for now. central line rt femoral done. done by ICU pressors to maintain map >65 no indication for intubation now, with risk of arrest/tenuous hemodynamics/BP - continue with fluid resuscitation and recheck VS/labs on supp O2 for now, may benefit from high flow nasal cannula. available in the ICU, checked with team upstairs. full code, family member ( Mr Singh) 03/20/19 19:[address] Zhu and Dr Brambila unavailable this week, no vascular surgeons here spoke with ICU team, no surgical cs available, will need transfer despite metabolic/organ failure/septic shock will stabilize here, ICU resident Dr Minaya performing central line to initiate pressors spokee with [facility] for transfer, Vascular Dr Gandara - will be economic consultant and needs ICU care spoke with Dr Vicky De La Garza, no ICU beds Dr Weaver SICU dry gangrene unlikely source of infection, needs medical optimization. 03/20/19 19:07 - information communicated with hospitalist service on, Dr Galloway and agreeable to plan and ICU admit for now, medical optimization as previously discussed, tx of septic shock, pneumonia, organ failure/OSVALDO and metabolic derangements. can also call podiatry for gangrene toe if no vascular 03/20/19 20:37 03/20/19 20:38 03/21/19 14:29 *DC/Admit/Observation/Transfer Diagnosis at time of Disposition: Dehydration, OSVALDO (acute kidney injury), Gangrene of toe of left foot, Hyperglycemia Sepsis Qualifiers: Sepsis type: sepsis due to unspecified organism Qualified Code(s): A41.9 - Sepsis, unspecified organism Pneumonia Qualifiers: Pneumonia type: due to unspecified organism Laterality: right Lung location: unspecified part of lung Qualified Code(s): J18.9 - Pneumonia, unspecified organism - Discharge Dispostion Condition at time of disposition: Guarded Decision to Admit order: Yes Decision to Admit order Date/Time: 03/20/19 16:25 03/20/19 20:37 - Referrals - Patient Instructions - Post Discharge Activity
[2019-03-20] MEDS ORDERED: VANCOMYCIN 1,000 MG in DEXTROSE 5%-WATER - 250 ML IVPB ONE (15:50)
[2019-03-20] MEDS ORDERED: PIPERACILLIN/TAZOB 4.5 GM 4.5 GM in DEXTROSE 5%-WATER 100 ML IVPB ONE (15:51)
[2019-03-20 15:57] LABS: BILIRUBIN,TOTAL 0.4 mg/dL (0.2-1); CALCIUM 9.2 mg/dL (8.5-10.1); POTASSIUM 5.3 mmol/L (3.5-5.1); TOT PROT 6.3 g/dl (6.4-8.2)
[2019-03-20 16:00] LABS: BLOOD UREA NITROGEN 128.6 mg/dL (7-18)
[2019-03-20] MEDS ORDERED: PIPERACILLIN/TAZOB 4.5 GM 4.5 GM/100 ML BAG IVPB ONE (16:00)
[2019-03-20] MEDS ORDERED: VANCOMYCIN 1 GRAM (PRE-DOCKED) 1,000 MG/250 ML BAG IVPB ONE (16:00)
[2019-03-20] MEDS ORDERED: SODIUM CHLORIDE 0.45% 1,000 ML IV SCH (16:30)
--- NOTE | 2019-03-20 16:51 | HP ---
Admitting History and Physical - Admission Chief Complaint: sent in for decreased po intake History of Present Illness: The patient is an 83-year-old female, with a past medical history of HTN, HLD, CVA (1996), T2DM with hyperosmolarity without nonketotic hyperglycemic- hyperosmolar coma ([facility]) (Acute), dementia, and gangrene of LT 1st, 2nd, and 3rd toes - recent admission and discharge in February 2019 for left foot/toe gangrene, s/p abx, changed and completed augmentin and currently on Bactrim x 1 week thus far per vascular, who presents to the ED with 2 days of decreased PO intake per and increased pain to LT foot. states that the patient is currently being followed by Dr. Zhu for dry gangrene to the LT 1st, 2nd, and 3rd toes. The patient has been unable to tolerate any solids, liquids, or medications due to nausea and vomiting. HPI is limited due to patients dementia and clinical condition. per he says that her dementia getting worse and she has stopped eating for the last few days , he says no fever at [facility], he says she is full code icu resident was in the room as well when i was seeing the patient in [place] temp 102.0 bun 128 and cr 4.0 na 160 lactic acid 4.6 zosyn ,vancomycin, tylenol and ivf. 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 History of Recent Travel: No Home Medications - Allergies Allergies/Adverse Reactions: Allergies Allergy/AdvReac Type Severity Reaction Status Date / Time No Known Allergies Allergy Verified 02/08/19 12:56 - Home Medications Home Medications: Ambulatory Orders Aspirin [Aspirin EC] 81 mg PO DAILY 02/08/19 Atorvastatin Ca [Lipitor] 20 mg PO HS 02/08/19 Amlodipine Bes/Olmesartan Med [Amlodipine-Olmesartan 5-20 mg] 1 each PO DAILY Ferrous Sulfate [Feosol] 325 mg PO DAILY 03/20/19 Sulfamethoxazole/Trimethoprim [Bactrim Ds Tablet] 1 each PO DAILY 03/20/19 Review of Systems Unable to obtain ROS, reason: lethargic non verbal Physical Examination Vital Signs: Vital Signs Temperature 100.7 F H 03/20/19 16:11 Pulse Rate 105 H 03/20/19 16:11 Respiratory Rate 22 H 03/20/19 16:11 Blood Pressure 82/49 L 03/20/19 16:11 O2 Sat by Pulse Oximetry (%) 100 03/20/19 16:11 Constitutional: Yes: Cachectic, Thin Cardiovascular: Yes: Tachycardia, S1, S2 Respiratory: Yes: Tachypnea Gastrointestinal: Yes: Soft Extremities: Yes: Other (foot toe foul smell gangrenous) Edema: No Integumentary: Yes: Other (stage 1 in the sacral region pink , skin tear noted) Labs: CBC, BMP 03/20/19 14:48 03/20/19 14:48 Imaging - Results Chest X-ray: Report Reviewed (density in right upper and lower lobe) Problem List - Problems (1) Sepsis Assessment/Plan: septic shock with lactic acidosis severly volume depleted monitor temperatures source of infection lung , toes check UA and urine culture icu monitoring pressors levophed stress dose steroids ivf- d5w map> 65 carpenter cath on non rebreather will need central line, arterial line vanco,zosyn and atypical coverage blood and urine culture monitor resp status repeat ABG and chem 7 ful code repeat cxr in AM dvt ppx Code(s): A41.9 - SEPSIS, UNSPECIFIED ORGANISM (2) OSVALDO (acute kidney injury) Assessment/Plan: ivf renal sono renal consult Code(s): N17.9 - ACUTE KIDNEY FAILURE, UNSPECIFIED (3) Dehydration Assessment/Plan: ivf Code(s): E86.0 - DEHYDRATION (4) Gangrene of toe of left foot Assessment/Plan: vascular consult dr frandy son is away on vacation Code(s): I96 - GANGRENE, NOT ELSEWHERE CLASSIFIED (5) Hyperglycemia Assessment/Plan: sliding scale bgm Code(s): R73.9 - HYPERGLYCEMIA, UNSPECIFIED (6) Hypernatremia Assessment/Plan: ivf check sodium every 4 hours renal consult Code(s): E87.0 - HYPEROSMOLALITY AND HYPERNATREMIA
--- NOTE | 2019-03-20 16:59 | CONSULT ---
Consultation: REQUESTING PROVIDER: CONSULT REQUEST: We have been asked to medically evaluate this patient for ICU admission for sepsis, likely 2/2 to PNA vs. Gangrene (less likely) 83 year old female with a PMH of Dementia, HTN, HLD presents to the ED w/ at the behest of patient's visiting home nurse who noted low blood pressures. assists in history as patient is on NRB at time of evaluation and noted to be minimally verbal at baseline. States patient has had decreased PO intake for the last 5 days including not taking her antibiotic prescribed for her L foot gangrene. Patient is scheduled to see Dr. Zhu (Vascular Surgery) next month for toe amputations. HISTORY OF PRESENT ILLNESS: REVIEW OF SYSTEMS: Unable to obtain 2/2 to patient's clinical condition. PHYSICAL EXAMINATION Vital Signs - 24 hr 03/20/19 03/20/19 03/20/19 14:00 15:39 16:11 Temperature 102.7 F H 100.7 F H Pulse Rate 126 H Pulse Rate [ 115 H 105 H Left Radial] Respiratory 19 23 H 22 H Rate Blood Pressure 80/47 L Blood Pressure 99/63 82/49 L [Right Arm] O2 Sat by Pulse 100 100 Oximetry (%) GENERAL: Cachetic, on NRB CV: S1, S2, no M/R/G, 2+ DP pulses Respiratory: on NRB, CLTA B/L Abdomen: soft, flat, (+) bowel sounds Extremity:gangrenous L hallux, 2nd toe and dorsal gangrene of 3rd toe, foul odor Integumentary: 3 cm diameter Stage 2 sacral decub ulcer; Stage 1 R dorsal groin ulcer Neuro: Alert, minimally verbal (baseline) Laboratory Results - last 24 hr 03/20/19 03/20/19 03/20/19 14:47 14:48 14:48 WBC RBC Hgb Hct MCV MCH MCHC RDW Plt Count MPV Absolute Neuts (auto) Neutrophils % Lymphocytes % Monocytes % Eosinophils % Basophils % Nucleated RBC % PT with INR INR PTT (Actin FS) 32.5 VBG pH POC VBG pCO2 POC VBG pO2 VBG HCO3 VBG O2 Sat (Kev) VBG Base Excess Sodium Potassium Chloride Carbon Dioxide Anion Gap BUN Creatinine Est GFR (CKD-EPI)AfAm Est GFR (CKD-EPI)NonAf Random Glucose Lactic Acid 4.6 H* Calcium Total Bilirubin AST ALT Alkaline Phosphatase Troponin I 0.42 H Total Protein Albumin 03/20/19 03/20/19 03/20/19 14:48 14:48 14:48 WBC 9.9 RBC 4.49 Hgb 10.4 L Hct 37.1 D MCV 82.7 D MCH 23.1 L MCHC 27.9 L RDW 17.6 H Plt Count 144 MPV 11.7 H D Absolute Neuts (auto) 6.7 Neutrophils % 67.8 D Lymphocytes % 26.3 D Monocytes % 4.6 Eosinophils % 0.0 Basophils % 1.3 Nucleated RBC % 0 PT with INR 11.50 INR 0.97 PTT (Actin FS) VBG pH POC VBG pCO2 POC VBG pO2 VBG HCO3 VBG O2 Sat (Kev) VBG Base Excess Sodium 160 H Potassium 5.3 H Chloride 125 H Carbon Dioxide 17 L Anion Gap 18 H BUN 128.6 H* Creatinine 4.0 H Est GFR (CKD-EPI)AfAm 11.45 Est GFR (CKD-EPI)NonAf 9.88 Random Glucose 726 H* Lactic Acid Calcium 9.2 Total Bilirubin 0.4 AST 31 ALT 21 Alkaline Phosphatase 79 Troponin I Total Protein 6.3 L Albumin 3.0 L 03/20/19 14:48 WBC RBC Hgb Hct MCV MCH MCHC RDW Plt Count MPV Absolute Neuts (auto) Neutrophils % Lymphocytes % Monocytes % Eosinophils % Basophils % Nucleated RBC % PT with INR INR PTT (Actin FS) VBG pH 7.17 L* POC VBG pCO2 39.3 L POC VBG pO2 43.6 H VBG HCO3 13.9 L VBG O2 Sat (Kev) 58.6 L VBG Base Excess -13.8 L Sodium Potassium Chloride Carbon Dioxide Anion Gap BUN Creatinine Est GFR (CKD-EPI)AfAm Est GFR (CKD-EPI)NonAf Random Glucose Lactic Acid Calcium Total Bilirubin AST ALT Alkaline Phosphatase Troponin I Total Protein Albumin Active Medications Generic Name Dose Route Start Last Admin Trade Name Freq PRN Reason Stop Dose Admin Vancomycin HCl 1,000 mg/ 250 mls @ 250 mls/2 hr 03/20/19 15:50 03/20/19 16:35 Dextrose IVPB 03/20/19 17:49 250 mls/2 hr ONCE ONE Administration Protocol Sodium Chloride 1,000 mls @ 83 mls/hr 03/20/19 16:30 03/20/19 16:35 1/2 Normal Saline IV 83 mls/hr ASDIR OSMANY Administration ASSESSMENT/PLAN: 83 year old female w/Sepsis (source likely R sided PNA); picture ocmplciated (1) SEPSIS - likely source is R sided PNA less likely L LE gangrene - Hypotensive (82/49) - MAP 60 - S/p 2 L NS, will switch to 1/2 NS 2/2 to hypernatremia - S/p Femoral Line placement for pressors (2) RENAL FAILURE - likely 2/2 to hypovolemia 2/2 to decreased PO intake - patient's @ bedside reports patient has not eaten in 5 days - BUN 128/Cr 4 - Case d/w Dr. Lorenz (Nephrology) request Renal U/S - Repeat CMP pending - @ 0000 BUN 123 - will continue targeted IV hydration (3) ? PNA - RLL and R medial lobe consolidation on CXR - Broad spectrum Abx Vanc/Zosyn started in ED - will continue w/renal dosing (4) GANGRENE - L infected L hallux and 2nd, 3rd toe - Broad spectrum Abx Vanc/Zosyn as discussed above - ID evaluated patient @ bedside, will continue to follow - Blood cultures pending (5) HYPERGLYCEMIA - BS 726, AG 18 - S/p 3 L IV hydration - Insulin drip/bolus+ repeat CMP for close monitoring - Advance directives discussed with patient's and daughter @ bedside. At this time patient is FULL CODE Dispo: We will continue to follow the patient. Thank you for this consultative opportunity. Visit type - Emergency Visit Emergency Visit: Yes ED Registration Date: 03/20/19 Care time: The patient presented to the Emergency Department on the above date and was hospitalized for further evaluation of their emergent condition. - New Patient This patient is new to me today: Yes Date on this admission: 03/21/19 - Critical Care Critical Care patient: Yes Total Critical Care Time (in minutes): 45 Critical Care Statement: The care of this patient involved high complexity decision making to prevent further life threatening deterioration of the patient 's condition and/or to evaluate & treat vital organ system(s) failure or risk of failure. ATTENDING PHYSICIAN STATEMENT I saw and evaluated the patient. I reviewed the resident's note and discussed the case with the resident. I agree with the resident's findings and plan as documented. SUBJECTIVE: OBJECTIVE: ASSESSMENT AND PLAN:
[2019-03-20] MEDS ORDERED: HYDROCORTISONE SOD SUCCINATE 100 MG/2 ML VIAL IVPB ONE (17:11)
--- NOTE | 2019-03-20 18:14 | CON.ID ---
Consult Consult Specialty:: infectious disease Referred by:: dr sweeney Reason for Consultation:: sepsis - History of Present Illness Chief Complaint: decreased po intake History of Present Illness: 83 yo female with severe dementia for last 8 years, nonverbal, recently admitted 02/08 to 02/21 for dry gangrene of her left foot she was discharged to SNF, she went home on 03/09 reports she has not eaten or drank anything for the last 5 days- maybe a sip of coffee he does report her diapers have been wet! 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: Yes: CVA, Dementia, TIA Cardio/Vascular: Yes: HTN, Hyperlipdemia Endocrine: Yes: Diabetes Mellitus Additional Medical History: dry gangrene of left foot - Past Surgical History Past Surgical History: Yes: None - Alcohol/Substance Use Hx Alcohol Use: No History of Substance Use: reports: None - Smoking History Smoking history: Unknown if ever smoked Have you smoked in the past 12 months: No Aproximately how many cigarettes per day: 0 - Social History Usual Living Arrangement: With Spouse ADL: Family Assistance 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; 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 Place of : Other ([place]) History of Recent Travel: No Home Medications - Allergies Allergies/Adverse Reactions: Allergies Allergy/AdvReac Type Severity Reaction Status Date / Time No Known Allergies Allergy Verified 02/08/19 12:56 - Home Medications Home Medications: Ambulatory Orders Aspirin [Aspirin EC] 81 mg PO DAILY 02/08/19 Atorvastatin Ca [Lipitor] 20 mg PO HS 02/08/19 Amlodipine Bes/Olmesartan Med [Amlodipine-Olmesartan 5-20 mg] 1 each PO DAILY Ferrous Sulfate [Feosol] 325 mg PO DAILY 03/20/19 Sulfamethoxazole/Trimethoprim [Bactrim Ds Tablet] 1 each PO DAILY 03/20/19 Family Disease History - Family Disease History Family History: Unable to Obtain Review of Systems Unable to obtain ROS, reason: poor appetite Physical Exam Vital Signs: Vital Signs Temperature 100.7 F H 03/20/19 16:11 Pulse Rate 105 H 03/20/19 16:11 Respiratory Rate 22 H 03/20/19 16:11 Blood Pressure 82/49 L 03/20/19 16:11 O2 Sat by Pulse Oximetry (%) 100 03/20/19 16:11 Constitutional: Yes: Cachectic Eyes: Yes: Conjunctiva Clear HENT: Yes: Atraumatic, Normocephalic, Other (temporal wasting) Cardiovascular: Yes: Regular Rate and Rhythm Respiratory: Yes: Diminished (bs at bases) Gastrointestinal: Yes: Soft, Other (scaphoid). No: Tenderness, Tenderness, Epigastrium ...Rectal Exam: Yes: Deferred Renal/: Yes: Anuria Extremities: Yes: WNL Edema: No Wound/Incision: Yes: Other (gangrene of the left foot with fouls smelling lesion extending to the mid foot from the big toe) Neurological: Yes: Lethargy Labs: CBC, BMP 03/20/19 14:48 03/20/19 14:48 blood cultures sent Imaging - Results Chest X-ray: Report Reviewed, Image Reviewed (RUL, RML infiltrate) Problem List - Problems (1) Sepsis Code(s): A41.9 - SEPSIS, UNSPECIFIED ORGANISM (2) Gangrene of left foot Code(s): I96 - GANGRENE, NOT ELSEWHERE CLASSIFIED (3) Pneumonia Code(s): J18.9 - PNEUMONIA, UNSPECIFIED ORGANISM (4) Acute renal failure Code(s): N17.9 - ACUTE KIDNEY FAILURE, UNSPECIFIED Assessment/Plan sepsis with severe dehydration and renal failure admit to ICU for volume resuscitation and correction of electrolytes continue vancomycin based on levels and zosyn adjust for renal failure f/u cultures, sputum, blood, urine, urine antigens overall prognosis is grim over 45 minutes spent in the care of this critically ill ICU patient d/w ICU resident
[2019-03-20] MEDS ORDERED: HYDROCORTISONE SOD SUCCINATE 2 ML ONE (18:18)
--- NOTE | 2019-03-20 19:24 | PROC ---
Central Line Insertion Indication: Vasopressor Risks and Benefits Explained: Yes Consent on Chart: Yes Central Line: Triple Lumen Catheter Anesthesia: 1% Lidocaine Sterile Technique: Yes Ultrasound Guided Assistance: Yes Position: Right Femoral Sterile Dressing Applied: Yes
[2019-03-20 19:30] LABS: EPI CELLS 3.3 /HPF (0-5/HPF); HYALINE CASTS 64 /lpf (0-8); URINE APPEARANCE CLOUDY; URINE BACTERIA 0.2 /hpf (NEGATIVE); URINE BILIRUBIN NEGATIVE (NEGATIVE); URINE COLOR DK YELLOW; URINE GLUCOSE (UA) 3+ (NEGATIVE); URINE KETONE TRACE (NEGATIVE); URINE LEUK ESTERASE NEGATIVE (NEGATIVE); URINE NITRITE NEGATIVE (NEGATIVE); URINE PROTEIN 1+ (NEGATIVE); URINE UROBILINOGEN 0.2 mg/dL (0.2-1.0); URINE WBC 5 /hpf (0-5)
[2019-03-20] MEDS ORDERED: SODIUM CHLORIDE 2,000 ML IV SCH (19:30)
[2019-03-20] MEDS ORDERED: PIPERACILLIN/TAZOB 2.25 GM 2.25 GM/50 ML BAG IVPB ONE (19:47)
[2019-03-20] MEDS: PIPERACILLIN/TAZOB 2.25 GM 2.25 GM in DEXTROSE 5%-WATER - 50 ML IVPB SCH (20:07)
[2019-03-20] MEDS ORDERED: NOREPINEPHRINE BITARTRATE 8,000 MCG in DEXTROSE 5%-WATER - 492 ML IV SCH (20:15)
[2019-03-20] MEDS ORDERED: INSULIN REGULAR 100 UNITS in SODIUM CHLORIDE 99 ML IVPB SCH (21:00)
[2019-03-20] MEDS ORDERED: INSULIN REGULAR HUMAN 100 UNITS/ML *VIAL ONE (21:31)
[2019-03-20] MEDS ORDERED: MUPIROCIN 2% TOPICAL OINTMENT FOR DECOLONIZATION NS SCH (22:00)
[2019-03-20] MEDS ORDERED: CHLORHEXIDINE GLUCONATE 4% CLEANSER FOR DECOLONIZATION TP SCH ×2 (22:00)
[2019-03-20 22:58] LABS: ALBUMIN 2.2 g/dl (3.4-5.0); BILIRUBIN,TOTAL 0.6 mg/dL (0.2-1); CALCIUM 7.2 mg/dL (8.5-10.1); CREATININE 3.3 mg/dL (0.55-1.3); POTASSIUM 4.6 mmol/L (3.5-5.1); TOT PROT 5.1 g/dl (6.4-8.2)
[2019-03-20 23:00] LABS: BLOOD UREA NITROGEN 123.8 mg/dL (7-18)
[2019-03-21] MEDS: MUPIROCIN 2% TOPICAL OINTMENT FOR DECOLONIZATION NS SCH ×2 (00:02→09:11)
[2019-03-21 01:19] VITALS: BMI 10.8
[2019-03-21] MEDS: HEPARIN NA (PORCINE) 5,000 UNITS/ML 1ML VIAL SQ SCH ×2 (01:22→09:08)
[2019-03-21] MEDS ORDERED: SODIUM CHLORIDE 0.45%/POT 20 MEQ/1,000 ML INFUS.BAG IV SCH (01:45)
[2019-03-21] MEDS: PIPERACILLIN/TAZOB 2.25 GM 2.25 GM in DEXTROSE 5%-WATER - 50 ML IVPB SCH ×3 (02:18→17:11)
[2019-03-21 03:42] LABS: ALBUMIN 2.2 g/dl (3.4-5.0); BILIRUBIN,TOTAL 0.4 mg/dL (0.2-1); CALCIUM 7.4 mg/dL (8.5-10.1); CREATININE 3.2 mg/dL (0.55-1.3); MAGNESIUM 2.7 mg/dL (1.8-2.4); PHOSPHOROUS 5.3 mg/dL (2.5-4.9); POTASSIUM 3.7 mmol/L (3.5-5.1)
[2019-03-21] MEDS ORDERED: PIPERACILLIN/TAZOBACTAM 2.25 GM VIAL IVPB ONE ×3 (03:44→16:45)
[2019-03-21] MEDS ORDERED: DEXTROSE 5%-WATER - 50 ML IVPB ONE ×3 (03:44→16:45)
[2019-03-21 03:45] LABS: BLOOD UREA NITROGEN 119.6 mg/dL (7-18)
[2019-03-21 03:55] LABS: EPI CELLS 6.9 /HPF (0-5/HPF); HYALINE CASTS 60 /lpf (0-8); URINE APPEARANCE TURBID; URINE BACTERIA 0 /hpf (NEGATIVE); URINE BILIRUBIN NEGATIVE (NEGATIVE); URINE COLOR YELLOW; URINE GLUCOSE (UA) 3+ (NEGATIVE); URINE KETONE TRACE (NEGATIVE); URINE LEUK ESTERASE NEGATIVE (NEGATIVE); URINE NITRITE NEGATIVE (NEGATIVE); URINE PROTEIN TRACE (NEGATIVE); URINE UROBILINOGEN 0.2 mg/dL (0.2-1.0); URINE WBC 5 /hpf (0-5)
[2019-03-21] MEDS ORDERED: POTASSIUM CHLORIDE 20 MEQ PREMIX IVPB 100 ML IVPB ONE (03:56)
[2019-03-21] MEDS ORDERED: LACTATED RINGERS SOLUTION 1,000 ML/1,000 ML INFUS.BAG IV SCH ×2 (04:00→06:15)
[2019-03-21 04:12] LABS: HEMATOCRIT 29.9 % (32.4-45.2); LYMPH % 24.7 % (8-40); MCH 23.1 pg (25.7-33.7); MEAN CELL VOLUME 77.1 fl (80-96); MEAN PLT VOLUME 11.6 fl (7.5-11.1); MONO % 2.5 % (3.8-10.2); NEUT % 71.8 % (42.8-82.8); PLATELET COUNT 143 K/MM3 (134-434); RBC 3.87 M/mm3 (3.60-5.2); RDW 16.7 % (11.6-15.6); WHITE BLOOD COUNT 12.1 K/mm3 (4.0-10.0)
[2019-03-21 04:38] LABS: ARTERIAL BLD GAS O2 SATURATION 98.6 % (95-98); ARTERIAL BLOOD GAS BASE EXCESS -12.3 meq/l (-2-2); ARTERIAL BLOOD GAS PCO2 26.9 mmHg (35-45); ARTERIAL BLOOD GAS PO2 128 mmHg (80-105)
[2019-03-21 05:59] LABS: ARTERIAL BLD GAS O2 SATURATION 98.8 % (95-98); ARTERIAL BLOOD GAS PCO2 27.1 mmHg (35-45); ARTERIAL BLOOD GAS PO2 134 mmHg (80-105)
[2019-03-21 06:02] LABS: ALLENS TEST POSITIVE
[2019-03-21 06:31] LABS: CALCIUM 7.5 mg/dL (8.5-10.1); CREATININE 2.9 mg/dL (0.55-1.3); POTASSIUM 3.7 mmol/L (3.5-5.1)
[2019-03-21 06:39] LABS: BLOOD UREA NITROGEN 105.2 mg/dL (7-18)
[2019-03-21 07:39] LABS: HEMATOCRIT 32.3 % (32.4-45.2); HEMOGLOBIN 9.6 GM/dL (10.7-15.3); MCH 23.2 pg (25.7-33.7); MCHC 29.7 g/dl (32.0-36.0); MEAN CELL VOLUME 78.2 fl (80-96); PLATELET COUNT 125 K/MM3 (134-434); RBC 4.13 M/mm3 (3.60-5.2); RDW 16.7 % (11.6-15.6); WHITE BLOOD COUNT 11.2 K/mm3 (4.0-10.0)
--- NOTE | 2019-03-21 09:29 | EKG ---
Test Reason : Blood Pressure : / mmHG Vent. Rate : 112 BPM Atrial Rate : 112 BPM P-R Int : 098 ms QRS Dur : 072 ms QT Int : 352 ms P-R-T Axes : 071 033 083 degrees QTc Int : 480 ms POOR DATA QUALITY, INTERPRETATION MAY BE ADVERSELY AFFECTED SINUS TACHYCARDIA WITH SHORT [place] LOW VOLTAGE QRS BORDERLINE ECG WHEN COMPARED WITH ECG OF 11-FEB-2019 17:36, NO SIGNIFICANT CHANGE WAS FOUND Confirmed by Jaison Martinez MD ([id number]) on 03/21/2019 9:29:33 AM Referred By: Confirmed By:Jaison Martinez MD
[2019-03-21 09:33] LABS: BLOOD UREA NITROGEN 99.3 mg/dL (7-18); CREATININE 2.7 mg/dL (0.55-1.3)
[2019-03-21] MEDS ORDERED: SODIUM CHLORIDE 0.45% 1,000 ML IV SCH (11:30)
[2019-03-21] MEDS ORDERED: ACETAMINOPHEN 1000 MG/100 ML VIAL (NON FORMULARY) IVPB SCH ×2 (12:00→14:00)
--- NOTE | 2019-03-21 12:30 | PN ---
Teaching Attending Note Name of Resident: Checo Light ATTENDING PHYSICIAN STATEMENT I saw and evaluated the patient. I reviewed the resident's note and discussed the case with the resident. I agree with the resident's findings and plan as documented. SUBJECTIVE: Patient seen and examined in the ICU. Lethargic and not able to answer questions. NE @ 4 mcq for hemodynamic support. Seen by Podiatry and ID this AM. Intake & Output 03/18/19 03/19/19 03/20/19 03/21/19 23:59 23:59 23:59 23:59 Intake Total 2000 Output Total 700 Balance 1300 Weight 143 lb 4.807 oz 61 lb 4.8 oz Last Vital Signs Temp Pulse Resp BP Pulse Ox 97.3 F L 94 H 20 99/53 L 100 03/21/19 07:46 03/21/19 10:00 03/21/19 10:00 03/21/19 10:00 03/21/19 07:46 Active Medications Acetaminophen (Ofirmev Injection -) 1,000 mg IVPB Q12H OSMANY Stop: 03/25/19 00:01 Chlorhexidine Gluconate (Hibiclens For Decolonization -) 1 applic TP HS OSMANY Last Admin: 03/21/19 05:03 Dose: Not Given Heparin Sodium (Porcine) (Heparin -) 5,000 unit SQ BID OSMANY Last Admin: 03/21/19 09:08 Dose: 5,000 unit Piperacillin Sod/Tazobactam (Sod 2.25 gm/ Dextrose) 50 mls @ 100 mls/hr IVPB Q8H-IV OSMANY; Protocol Last Admin: 03/21/19 09:08 Dose: 100 mls/hr Norepinephrine Bitartrate 8, (000 mcg/ Dextrose) 500 mls @ 18.75 mls/hr IV TITR OSMANY; Protocol Last Titration: 03/21/19 03:23 Dose: 4 mcg/min, 15 mls/hr Sodium Chloride (1/2 Normal Saline) 1,000 mls @ 125 mls/hr IV ASDIR OSMANY Last Admin: 03/21/19 11:48 Dose: 125 mls/hr Insulin Aspart (Novolog Vial Sliding Scale -) 1 vial SQ Q2H OSMANY; Protocol Mupirocin (Bactroban Ointment (For Decolonization) -) 1 applic NS BID OSMANY Stop: 03/25/19 21:59 Last Admin: 03/21/19 09:11 Dose: 1 applic GENERAL: Cachetic, poorly responsive CV: S1, S2, no M/R/G, 2+ DP pulses Respiratory: Clear Abdomen: soft, flat, (+) bowel sounds Extremity: gangrenous Left foot, foul odor Integumentary: 3 cm diameter Stage 2 sacral decub ulcer; Stage 1 R dorsal groin ulcer Neuro: Lethargic, non-verbal Laboratory Results - last 24 hr 03/20/19 03/20/19 03/20/19 14:47 14:48 14:48 WBC RBC Hgb Hct MCV MCH MCHC RDW Plt Count MPV Absolute Neuts (auto) Neutrophils % Lymphocytes % Monocytes % Eosinophils % Basophils % Nucleated RBC % PT with INR INR PTT (Actin FS) 32.5 Anticoagulation Therapy Puncture Site ABG pH ABG pCO2 at Pt Temp ABG pO2 at Pt Temp ABG HCO3 ABG O2 Sat (Measured) ABG O2 Content ABG Base Excess Chicho Test VBG pH POC VBG pCO2 POC VBG pO2 VBG HCO3 VBG O2 Sat (Kev) VBG Base Excess O2 Delivery Device Oxygen Flow Rate Vent Mode Vent Rate Mechanical Rate Pressure Support Vent Sodium Potassium Chloride Carbon Dioxide Anion Gap BUN Creatinine Est GFR (CKD-EPI)AfAm Est GFR (CKD-EPI)NonAf POC Glucometer Random Glucose Lactic Acid 4.6 H* Calcium Phosphorus Magnesium Total Bilirubin AST ALT Alkaline Phosphatase Creatine Kinase Creatine Kinase Index CK-MB (CK-2) Troponin I 0.42 H Total Protein Albumin Urine Color Urine Appearance Urine pH Ur Specific [place] Urine Protein Urine Glucose (UA) Urine Ketones Urine Blood Urine Nitrite Urine Bilirubin Urine Urobilinogen Ur Leukocyte Esterase Urine WBC (Auto) Urine Casts (Auto) U Epithel Cells (Auto) Urine Bacteria (Auto) Random Vancomycin 03/20/19 03/20/19 03/20/19 14:48 14:48 14:48 WBC 9.9 RBC 4.49 Hgb 10.4 L Hct 37.1 D MCV 82.7 D MCH 23.1 L MCHC 27.9 L RDW 17.6 H Plt Count 144 MPV 11.7 H D Absolute Neuts (auto) 6.7 Neutrophils % 67.8 D Lymphocytes % 26.3 D Monocytes % 4.6 Eosinophils % 0.0 Basophils % 1.3 Nucleated RBC % 0 PT with INR 11.50 INR 0.97 PTT (Actin FS) Anticoagulation Therapy Puncture Site ABG pH ABG pCO2 at Pt Temp ABG pO2 at Pt Temp ABG HCO3 ABG O2 Sat (Measured) ABG O2 Content ABG Base Excess Chicho Test VBG pH POC VBG pCO2 POC VBG pO2 VBG HCO3 VBG O2 Sat (Kev) VBG Base Excess O2 Delivery Device Oxygen Flow Rate Vent Mode Vent Rate Mechanical Rate Pressure Support Vent Sodium 160 H Potassium 5.3 H Chloride 125 H Carbon Dioxide 17 L Anion Gap 18 H BUN 128.6 H* Creatinine 4.0 H Est GFR (CKD-EPI)AfAm 11.45 Est GFR (CKD-EPI)NonAf 9.88 POC Glucometer Random Glucose 726 H* Lactic Acid Calcium 9.2 Phosphorus Magnesium Total Bilirubin 0.4 AST 31 ALT 21 Alkaline Phosphatase 79 Creatine Kinase Creatine Kinase Index CK-MB (CK-2) Troponin I Total Protein 6.3 L Albumin 3.0 L Urine Color Urine Appearance Urine pH Ur Specific [place] Urine Protein Urine Glucose (UA) Urine Ketones Urine Blood Urine Nitrite Urine Bilirubin Urine Urobilinogen Ur Leukocyte Esterase Urine WBC (Auto) Urine Casts (Auto) U Epithel Cells (Auto) Urine Bacteria (Auto) Random Vancomycin 03/20/19 03/20/19 03/20/19 14:48 18:00 19:10 WBC RBC Hgb Hct MCV MCH MCHC RDW Plt Count MPV Absolute Neuts (auto) Neutrophils % Lymphocytes % Monocytes % Eosinophils % Basophils % Nucleated RBC % PT with INR INR PTT (Actin FS) Anticoagulation Therapy Puncture Site ABG pH ABG pCO2 at Pt Temp ABG pO2 at Pt Temp ABG HCO3 ABG O2 Sat (Measured) ABG O2 Content ABG Base Excess Chicho Test VBG pH 7.17 L* POC VBG pCO2 39.3 L POC VBG pO2 43.6 H VBG HCO3 13.9 L VBG O2 Sat (Kev) 58.6 L VBG Base Excess -13.8 L O2 Delivery Device Oxygen Flow Rate Vent Mode Vent Rate Mechanical Rate Pressure Support Vent Sodium Potassium Chloride Carbon Dioxide Anion Gap BUN Creatinine Est GFR (CKD-EPI)AfAm Est GFR (CKD-EPI)NonAf POC Glucometer Random Glucose Lactic Acid 1.3 Calcium Phosphorus Magnesium Total Bilirubin AST ALT Alkaline Phosphatase Creatine Kinase Creatine Kinase Index CK-MB (CK-2) Troponin I Total Protein Albumin Urine Color Dk yellow Urine Appearance Cloudy Urine pH 5.0 Ur Specific [place] 1.022 Urine Protein 1+ H Urine Glucose (UA) 3+ H Urine Ketones Trace H Urine Blood 3+ H Urine Nitrite Negative Urine Bilirubin Negative Urine Urobilinogen 0.2 Ur Leukocyte Esterase Negative Urine WBC (Auto) 5 Urine Casts (Auto) 64 U Epithel Cells (Auto) 3.3 Urine Bacteria (Auto) 0.2 Random Vancomycin 03/20/19 03/21/19 03/21/19 22:20 00:16 02:07 WBC RBC Hgb Hct MCV MCH MCHC RDW Plt Count MPV Absolute Neuts (auto) Neutrophils % Lymphocytes % Monocytes % Eosinophils % Basophils % Nucleated RBC % PT with INR INR PTT (Actin FS) Anticoagulation Therapy Puncture Site ABG pH ABG pCO2 at Pt Temp ABG pO2 at Pt Temp ABG HCO3 ABG O2 Sat (Measured) ABG O2 Content ABG Base Excess [place]icho Test VBG pH POC VBG pCO2 POC VBG pO2 VBG HCO3 VBG O2 Sat (Kev) VBG Base Excess O2 Delivery Device Oxygen Flow Rate Vent Mode Vent Rate Mechanical Rate Pressure Support Vent Sodium 153 H Potassium 4.6 Chloride 125 H Carbon Dioxide 11 L Anion Gap 17 H BUN 123.8 H* Creatinine 3.3 H Est GFR (CKD-EPI)AfAm 14.45 Est GFR (CKD-EPI)NonAf 12.47 POC Glucometer [id number] 521 Random Glucose 789 H* Lactic Acid Calcium 7.2 L Phosphorus Magnesium Total Bilirubin 0.6 AST 40 H ALT 20 Alkaline Phosphatase 71 Creatine Kinase Creatine Kinase Index CK-MB (CK-2) Troponin I Total Protein 5.1 L Albumin 2.2 L Urine Color Urine Appearance Urine pH Ur Specific [place] Urine Protein Urine Glucose (UA) Urine Ketones Urine Blood Urine Nitrite Urine Bilirubin Urine Urobilinogen Ur Leukocyte Esterase Urine WBC (Auto) Urine Casts (Auto) U Epithel Cells (Auto) Urine Bacteria (Auto) Random Vancomycin 03/21/19 03/21/19 03/21/19 02:40 02:40 03:35 WBC RBC Hgb Hct MCV MCH MCHC RDW Plt Count MPV Absolute Neuts (auto) Neutrophils % Lymphocytes % Monocytes % Eosinophils % Basophils % Nucleated RBC % PT with INR INR PTT (Actin FS) Anticoagulation Therapy Puncture Site ABG pH ABG pCO2 at Pt Temp ABG pO2 at Pt Temp ABG HCO3 ABG O2 Sat (Measured) ABG O2 Content ABG Base Excess Chicho Test VBG pH POC VBG pCO2 POC VBG pO2 VBG HCO3 VBG O2 Sat (Kev) VBG Base Excess O2 Delivery Device Oxygen Flow Rate Vent Mode Vent Rate Mechanical Rate Pressure Support Vent Sodium 155 H Potassium 3.7 Chloride 128 H Carbon Dioxide 15 L Anion Gap 13 BUN 119.6 H* Creatinine 3.2 H Est GFR (CKD-EPI)AfAm 14.99 Est GFR (CKD-EPI)NonAf 12.94 POC Glucometer Random Glucose 646 H* Lactic Acid 2.5 H* Calcium 7.4 L Phosphorus 5.3 H Magnesium 2.7 H Total Bilirubin 0.4 AST 37 ALT 20 Alkaline Phosphatase 75 Creatine Kinase 986 H Creatine Kinase Index 0.7 CK-MB (CK-2) 7.0 H Troponin I 0.53 H Total Protein 5.0 L Albumin 2.2 L Urine Color Yellow Urine Appearance Turbid Urine pH 5.0 Ur Specific [place] 1.022 Urine Protein Trace Urine Glucose (UA) 3+ H Urine Ketones Trace H Urine Blood 3+ H Urine Nitrite Negative Urine Bilirubin Negative Urine Urobilinogen 0.2 Ur Leukocyte Esterase Negative Urine WBC (Auto) 5 Urine Casts (Auto) 60 U Epithel Cells (Auto) 6.9 Urine Bacteria (Auto) 0 Random Vancomycin 03/21/19 03/21/19 03/21/19 03:35 04:24 04:53 WBC 12.1 H RBC 3.87 Hgb 9.0 L Hct 29.9 L D MCV 77.1 L MCH 23.1 L MCHC 30.0 L RDW 16.7 H Plt Count 143 MPV 11.6 H Absolute Neuts (auto) 8.7 H Neutrophils % 71.8 Lymphocytes % 24.7 Monocytes % 2.5 L Eosinophils % 0.0 Basophils % 1.0 Nucleated RBC % 0 PT with INR INR PTT (Actin FS) Anticoagulation Therapy No Result Required. Puncture Site No Result Required. ABG pH 7.30 L ABG pCO2 at Pt Temp 26.9 L ABG pO2 at Pt Temp 128 H ABG HCO3 12.7 L ABG O2 Sat (Measured) 98.6 H ABG O2 Content 12.3 L ABG Base Excess -12.3 L Chicho Test No Result Required. VBG pH POC VBG pCO2 POC VBG pO2 VBG HCO3 VBG O2 Sat (Kev) VBG Base Excess O2 Delivery Device No Result Required. Oxygen Flow Rate No Result Required. Vent Mode No Result Required. Vent Rate No Result Required. Mechanical Rate No Result Required. Pressure Support Vent No Result Required. Sodium Potassium Chloride Carbon Dioxide Anion Gap BUN Creatinine Est GFR (CKD-EPI)AfAm Est GFR (CKD-EPI)NonAf POC Glucometer 468 Random Glucose Lactic Acid Calcium Phosphorus Magnesium Total Bilirubin AST ALT Alkaline Phosphatase Creatine Kinase Creatine Kinase Index CK-MB (CK-2) Troponin I Total Protein Albumin Urine Color Urine Appearance Urine pH Ur Specific [place] Urine Protein Urine Glucose (UA) Urine Ketones Urine Blood Urine Nitrite Urine Bilirubin Urine Urobilinogen Ur Leukocyte Esterase Urine WBC (Auto) Urine Casts (Auto) U Epithel Cells (Auto) Urine Bacteria (Auto) Random Vancomycin 03/21/19 03/21/19 03/21/19 05:30 05:30 05:30 WBC RBC Hgb Hct MCV MCH MCHC RDW Plt Count MPV Absolute Neuts (auto) Neutrophils % Lymphocytes % Monocytes % Eosinophils % Basophils % Nucleated RBC % PT with INR INR PTT (Actin FS) Anticoagulation Therapy No Result Required. Puncture Site Left brachial ABG pH 7.30 L ABG pCO2 at Pt Temp 27.1 L ABG pO2 at Pt Temp 134 H ABG HCO3 12.9 L ABG O2 Sat (Measured) 98.8 H ABG O2 Content 12.2 L ABG Base Excess -12.0 L Chicho Test Positive VBG pH POC VBG pCO2 POC VBG pO2 VBG HCO3 VBG O2 Sat (Kev) VBG Base Excess O2 Delivery Device N/c Oxygen Flow Rate 3l Vent Mode No Result Required. Vent Rate No Result Required. Mechanical Rate No Result Required. Pressure Support Vent No Result Required. Sodium 154 H Potassium 3.7 Chloride 126 H Carbon Dioxide 15 L Anion Gap 12 BUN 105.2 H* Creatinine 2.9 H Est GFR (CKD-EPI)AfAm 16.89 Est GFR (CKD-EPI)NonAf 14.57 POC Glucometer Random Glucose 502 H* Lactic Acid 4.8 H* Calcium 7.5 L Phosphorus Magnesium Total Bilirubin AST ALT Alkaline Phosphatase Creatine Kinase Creatine Kinase Index CK-MB (CK-2) Troponin I Total Protein Albumin Urine Color Urine Appearance Urine pH Ur Specific [place] Urine Protein Urine Glucose (UA) Urine Ketones Urine Blood Urine Nitrite Urine Bilirubin Urine Urobilinogen Ur Leukocyte Esterase Urine WBC (Auto) Urine Casts (Auto) U Epithel Cells (Auto) Urine Bacteria (Auto) Random Vancomycin 03/21/19 03/21/19 03/21/19 05:55 06:00 06:33 WBC 11.2 H RBC 4.13 Hgb 9.6 L Hct 32.3 L MCV 78.2 L MCH 23.2 L MCHC 29.7 L RDW 16.7 H Plt Count 125 L MPV 11.0 Absolute Neuts (auto) Neutrophils % Lymphocytes % Monocytes % Eosinophils % Basophils % Nucleated RBC % PT with INR INR PTT (Actin FS) Anticoagulation Therapy Puncture Site ABG pH ABG pCO2 at Pt Temp ABG pO2 at Pt Temp ABG HCO3 ABG O2 Sat (Measured) ABG O2 Content ABG Base Excess Chicho Test VBG pH POC VBG pCO2 POC VBG pO2 VBG HCO3 VBG O2 Sat (Kev) VBG Base Excess O2 Delivery Device Oxygen Flow Rate Vent Mode Vent Rate Mechanical Rate Pressure Support Vent Sodium Potassium Chloride Carbon Dioxide Anion Gap BUN Creatinine Est GFR (CKD-EPI)AfAm Est GFR (CKD-EPI)NonAf POC Glucometer 401 Random Glucose Lactic Acid Calcium Phosphorus Magnesium Total Bilirubin AST ALT Alkaline Phosphatase Creatine Kinase Creatine Kinase Index CK-MB (CK-2) Troponin I Total Protein Albumin Urine Color Urine Appearance Urine pH Ur Specific [place] Urine Protein Urine Glucose (UA) Urine Ketones Urine Blood Urine Nitrite Urine Bilirubin Urine Urobilinogen Ur Leukocyte Esterase Urine WBC (Auto) Urine Casts (Auto) U Epithel Cells (Auto) Urine Bacteria (Auto) Random Vancomycin 14.5 L 03/21/19 03/21/19 03/21/19 08:23 08:43 08:43 WBC RBC Hgb Hct MCV MCH MCHC RDW Plt Count MPV Absolute Neuts (auto) Neutrophils % Lymphocytes % Monocytes % Eosinophils % Basophils % Nucleated RBC % PT with INR INR PTT (Actin FS) Anticoagulation Therapy Puncture Site ABG pH ABG pCO2 at Pt Temp ABG pO2 at Pt Temp ABG HCO3 ABG O2 Sat (Measured) ABG O2 Content ABG Base Excess Chicho Test VBG pH POC VBG pCO2 POC VBG pO2 VBG HCO3 VBG O2 Sat (Kev) VBG Base Excess O2 Delivery Device Oxygen Flow Rate Vent Mode Vent Rate Mechanical Rate Pressure Support Vent Sodium 156 H Potassium 5.0 Chloride 128 H Carbon Dioxide 17 L Anion Gap 10 BUN 99.3 H Creatinine 2.7 H Est GFR (CKD-EPI)AfAm 18.41 Est GFR (CKD-EPI)NonAf 15.89 POC Glucometer 336 Random Glucose 285 H Lactic Acid 4.8 H* Calcium 8.0 L Phosphorus Magnesium Total Bilirubin AST ALT Alkaline Phosphatase Creatine Kinase 814 H Creatine Kinase Index 0.9 CK-MB (CK-2) 8.1 H Troponin I 0.42 H Total Protein Albumin Urine Color Urine Appearance Urine pH Ur Specific [place] Urine Protein Urine Glucose (UA) Urine Ketones Urine Blood Urine Nitrite Urine Bilirubin Urine Urobilinogen Ur Leukocyte Esterase Urine WBC (Auto) Urine Casts (Auto) U Epithel Cells (Auto) Urine Bacteria (Auto) Random Vancomycin 03/21/19 03/21/19 10:47 11:53 WBC RBC Hgb Hct MCV MCH MCHC RDW Plt Count MPV Absolute Neuts (auto) Neutrophils % Lymphocytes % Monocytes % Eosinophils % Basophils % Nucleated RBC % PT with INR INR PTT (Actin FS) Anticoagulation Therapy Puncture Site ABG pH ABG pCO2 at Pt Temp ABG pO2 at Pt Temp ABG HCO3 ABG O2 Sat (Measured) ABG O2 Content ABG Base Excess Chicho Test VBG pH POC VBG pCO2 POC VBG pO2 VBG HCO3 VBG O2 Sat (Kev) VBG Base Excess O2 Delivery Device Oxygen Flow Rate Vent Mode Vent Rate Mechanical Rate Pressure Support Vent Sodium Potassium Chloride Carbon Dioxide Anion Gap BUN Creatinine Est GFR (CKD-EPI)AfAm Est GFR (CKD-EPI)NonAf POC Glucometer 232 152 Random Glucose Lactic Acid Calcium Phosphorus Magnesium Total Bilirubin AST ALT Alkaline Phosphatase Creatine Kinase Creatine Kinase Index CK-MB (CK-2) Troponin I Total Protein Albumin Urine Color Urine Appearance Urine pH Ur Specific [place] Urine Protein Urine Glucose (UA) Urine Ketones Urine Blood Urine Nitrite Urine Bilirubin Urine Urobilinogen Ur Leukocyte Esterase Urine WBC (Auto) Urine Casts (Auto) U Epithel Cells (Auto) Urine Bacteria (Auto) Random Vancomycin ASSESSMENT/PLAN: 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 Possible component of HHS Severe electrolyte derangement Dementia Will get Podiatry input for source control of the foot. At this time no available vascular surgery. Might need transfer to tertiary care. ABX per ID O2 as needed Aspiration precautions Change TLC position Follow cultures IVF resuscitation Renal evaluation was called Can D/C Insulin drip and use SQ coverage for now Requires ICU monitoring for pressors. Mat require transfer to tertiary care for amputation. Dr Appiah Critical care time spent in reviewing chart, evaluating patient and formulating plan - 36 minutes.
[2019-03-21] MEDS: INSULIN SLIDING SCALE (NOVOLOG) 1 VIAL SQ SCH ×3 (12:46→16:44)
--- NOTE | 2019-03-21 12:46 | PN ---
Progress Note, Physician History of Present Illness: POORLY RESPONSIVE HYPOTENSIVE ON PRESSORS BC GNR TEMPS DOWN AFEBRILE - Current Medication List Current Medications: Active Medications Acetaminophen (Ofirmev Injection -) 1,000 mg IVPB Q12H OSMANY Stop: 03/25/19 00:01 Chlorhexidine Gluconate (Hibiclens For Decolonization -) 1 applic TP HS OSMANY Last Admin: 03/21/19 05:03 Dose: Not Given Heparin Sodium (Porcine) (Heparin -) 5,000 unit SQ BID OSMANY Last Admin: 03/21/19 09:08 Dose: 5,000 unit Piperacillin Sod/Tazobactam (Sod 2.25 gm/ Dextrose) 50 mls @ 100 mls/hr IVPB Q8H-IV OSMANY; Protocol Last Admin: 03/21/19 09:08 Dose: 100 mls/hr Norepinephrine Bitartrate 8, (000 mcg/ Dextrose) 500 mls @ 18.75 mls/hr IV TITR OSMANY; Protocol Last Titration: 03/21/19 03:23 Dose: 4 mcg/min, 15 mls/hr Sodium Chloride (1/2 Normal Saline) 1,000 mls @ 125 mls/hr IV ASDIR OSMANY Last Admin: 03/21/19 11:48 Dose: 125 mls/hr Insulin Aspart (Novolog Vial Sliding Scale -) 1 vial SQ Q2H [facility]; Protocol Mupirocin (Bactroban Ointment (For Decolonization) -) 1 applic NS BID OSMANY Stop: 03/25/19 21:59 Last Admin: 03/21/19 09:11 Dose: 1 applic - Objective Vital Signs: Vital Signs Temperature 97.3 F L 03/21/19 07:46 Pulse Rate 94 H 03/21/19 10:00 Respiratory Rate 20 03/21/19 10:00 Blood Pressure 99/53 L 03/21/19 10:00 O2 Sat by Pulse Oximetry (%) 100 03/21/19 07:46 Constitutional: Yes: No Distress Eyes: Yes: Conjunctiva Clear Cardiovascular: Yes: Regular Rate and Rhythm, S1, S2 Respiratory: Yes: Diminished Gastrointestinal: Yes: Normal Bowel Sounds, Soft. No: Tenderness Extremities: Yes: Other (+ DRY GANGRENE, FOOT) Labs: CBC, BMP 03/21/19 05:55 03/21/19 08:43 INR, PTT INR 0.97 (0.83-1.09) 03/20/19 14:48 Assessment/Plan GRAM NEGATIVE BACTEREMIA/ SEPSIS ? SKIN SOURCE ? LUNG GANGRENE, FOOT PNEUMONIA RENAL FAILURE THROMBOCYTOPENIA LACTIC ACIDOSIS AWAIT BC RESULT CONTINUE EMPIRIC ZOSYN
--- NOTE | 2019-03-21 13:47 | CONSULT ---
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 She was found to be in renal failure and I was called to evaluate her. She is unable to give history due to dementia and clinical condition. Her family are bedside and they assisted. She had been on augementin and then bactrim as outpt. She follows with Dr Zhu. She did respond to fluids with improvement on renal function and potassium. She has also had nausea and vomiting at home and has not had much to eat over the last few days. 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, Dementia, TIA Cardio/Vascular: Yes: HTN, Hyperlipdemia Endocrine: Yes: Diabetes Mellitus Additional Medical History: dry gangrene of left foot - Past Surgical History Past Surgical History: Yes: None - Alcohol/Substance Use Hx Alcohol Use: No History of Substance Use: reports: None - Smoking History Smoking history: Unknown if ever smoked Have you smoked in the past 12 months: No Aproximately how many cigarettes per day: 0 - Social History Usual Living Arrangement: With Spouse ADL: Family Assistance 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; 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 History of Recent Travel: No Home Medications - Allergies Allergies/Adverse Reactions: Allergies Allergy/AdvReac Type Severity Reaction Status Date / Time No Known Allergies Allergy Verified 03/20/19 22:19 - Home Medications Home Medications: Ambulatory Orders Aspirin [Aspirin EC] 81 mg PO DAILY 02/08/19 Atorvastatin Ca [Lipitor] 20 mg PO HS 02/08/19 Amlodipine Bes/Olmesartan Med [Amlodipine-Olmesartan 5-20 mg] 1 each PO DAILY Ferrous Sulfate [Feosol] 325 mg PO DAILY 03/20/19 Sulfamethoxazole/Trimethoprim [Bactrim Ds Tablet] 1 each PO DAILY 03/20/19 Family Disease History - Family Disease History Family History: Unable to Obtain Review of Systems Unable to obtain ROS, reason: pt lethargic Findings/Remarks: pt with dementia and is lethargic, unable to answer questions or give history. Physical Exam Vital Signs: Vital Signs Temperature 97.3 F L 03/21/19 07:46 Pulse Rate 96 H 03/21/19 13:00 Respiratory Rate 20 03/21/19 13:00 Blood Pressure 109/50 L 03/21/19 13:06 O2 Sat by Pulse Oximetry (%) 100 03/21/19 07:46 Constitutional: Yes: Mild Distress Eyes: Yes: Conjunctiva Clear Cardiovascular: Yes: S1, S2 Respiratory: Yes: CTA Bilaterally Gastrointestinal: Yes: Soft Renal/: Yes: Incontinence Musculoskeletal: Yes: Muscle Weakness Extremities: Yes: Other (left foot gangrene) Edema: No Integumentary: Yes: Other (left foot gnagrene) Wound/Incision: Yes: Open to air Neurological: Yes: Confusion, Lethargy Psychiatric: Yes: Agitated Labs: CBC, BMP 03/21/19 05:55 03/21/19 08:43 Microbiology 03/20/19 19:10 Urine For Antigen Detection Legionella Antigen - Final 03/20/19 19:10 Urine For Antigen Detection Streptococcus pneumoniae Antigen (M - Final 03/20/19 14:47 Blood - Peripheral Venous Blood Culture - Preliminary Pending Organism 03/20/19 14:47 Blood - Peripheral Venous Blood Culture - Preliminary Pending Organism Laboratory Tests 02/10/19 02/12/19 02/16/19 07:40 10:10 08:40 WBC Sodium Potassium Carbon Dioxide BUN Creatinine 0.7 0.8 0.5 L Random Glucose Lactic Acid Urine Protein Urine Blood Ur Leukocyte Esterase 02/17/19 03/20/19 03/20/19 06:00 14:47 14:48 WBC 9.9 Sodium Potassium Carbon Dioxide BUN Creatinine 0.5 L Random Glucose Lactic Acid 4.6 H* Urine Protein Urine Blood Ur Leukocyte Esterase 03/20/19 03/20/19 03/20/19 14:48 18:00 19:10 WBC Sodium 160 H Potassium 5.3 H Carbon Dioxide 17 L BUN 128.6 H* Creatinine 4.0 H Random Glucose 726 H* Lactic Acid 1.3 Urine Protein 1+ H Urine Blood 3+ H Ur Leukocyte Esterase Negative 03/21/19 03/21/19 03/21/19 02:40 03:35 03:35 WBC 12.1 H Sodium Potassium Carbon Dioxide BUN Creatinine Random Glucose Lactic Acid 2.5 H* Urine Protein Trace Urine Blood 3+ H Ur Leukocyte Esterase Negative 03/21/19 03/21/19 03/21/19 05:30 05:55 08:43 WBC 11.2 H Sodium Potassium Carbon Dioxide BUN Creatinine Random Glucose Lactic Acid 4.8 H* 4.8 H* Urine Protein Urine Blood Ur Leukocyte Esterase 03/21/19 08:43 WBC Sodium 156 H Potassium 5.0 Carbon Dioxide BUN 99.3 H Creatinine 2.7 H Random Glucose Lactic Acid Urine Protein Urine Blood Ur Leukocyte Esterase Imaging - Results Chest X-ray: Report Reviewed Ultrasound: Report Reviewed Problem List - Problems (1) NISHA (acute kidney injury) Code(s): N17.9 - ACUTE KIDNEY FAILURE, UNSPECIFIED (2) Dehydration Code(s): E86.0 - DEHYDRATION (3) Gangrene of toe of left foot Code(s): I96 - GANGRENE, NOT ELSEWHERE CLASSIFIED (4) Hyperglycemia Code(s): R73.9 - HYPERGLYCEMIA, UNSPECIFIED (5) Hypernatremia Code(s): E87.0 - HYPEROSMOLALITY AND HYPERNATREMIA (6) Sepsis Code(s): A41.9 - SEPSIS, UNSPECIFIED ORGANISM (7) Dementia Code(s): F03.90 - UNSPECIFIED DEMENTIA WITHOUT BEHAVIORAL DISTURBANCE (8) Diabetes Code(s): E11.9 - TYPE 2 DIABETES MELLITUS WITHOUT COMPLICATIONS Qualifiers: Diabetes mellitus type: type 2 (9) Gangrene of left foot Code(s): I96 - GANGRENE, NOT ELSEWHERE CLASSIFIED Assessment/Plan Current Medications Generic Name Dose Route Start Last Admin Trade Name Julian PRN Reason Stop Dose Admin Acetaminophen 1,000 mg 03/21/19 12:00 Ofirmev Injection - IVPB 03/25/19 00:01 Q12H OSMANY Chlorhexidine Gluconate 1 applic 03/20/19 22:00 03/21/19 05:03 Hibiclens For Decolonization - TP Not Given HS OSMANY Heparin Sodium (Porcine) 5,000 unit 03/20/19 22:00 03/21/19 09:08 Heparin - SQ 5,000 unit BID OSMANY Administration Piperacillin Sod/Tazobactam 50 mls @ 100 mls/hr 03/20/19 18:45 03/21/19 09:08 Sod 2.25 gm/ Dextrose IVPB 100 mls/hr Q8H-IV OSMANY Administration Protocol Norepinephrine Bitartrate 8, 500 mls @ 18.75 mls/hr 03/20/19 20:15 03/21/19 13:00 000 mcg/ Dextrose IV 8 mcg/min TITR OSMANY 30 mls/hr Titration Protocol 5 MCG/MIN Sodium Chloride 1,000 mls @ 125 mls/hr 03/21/19 11:30 03/21/19 11:48 1/2 Normal Saline IV 125 mls/hr ASDIR OSMANY Administration Insulin Aspart 1 vial 03/21/19 11:45 03/21/19 12:46 Novolog Vial Sliding Scale - SQ Not Given Q2H OSMANY Protocol Mupirocin 1 applic 03/20/19 22:00 03/21/19 09:11 Bactroban Ointment (For Decolonization) - NS 03/25/19 21:59 1 applic BID OSMANY Administration Impression 1. NISHA 2. hypernatremia 3. DM 4. gangrene of the left foot 5. hypotension 6. sepsis 7. lactic acidosis 8. dementia 9. cva 10. hyperkalemia 11. bacterremia Plan - nisha likely secondary to sepsis and severe pre-renal disease - reviewed renal ultrasound - check ua, lytes and wood tile installer to calc fena - renal function is improving - cont with hypotonic fluids - potassium is improving, bactrim may have contributed to elevated potassium - follow cultures - abx per ID - cont to trend lactic acid - pressors to a map of 65 - vascular/podiatry eval - discussed with ICU team
--- NOTE | 2019-03-21 14:13 | PROC ---
Central Line Insertion Indication: CVP Monitoring, Sepsis Risks and Benefits Explained: Yes Consent on Chart: Yes Central Line: Triple Lumen Catheter Anesthesia: 1% Lidocaine Sterile Technique: Yes Ultrasound Guided Assistance: Yes Position: Right Internal Jugular Post Insertion: Yes: Chest X-Ray Ordered Sterile Dressing Applied: Yes
[2019-03-21 15:05] LABS: BLOOD UREA NITROGEN 86.4 mg/dL (7-18); CALCIUM 7.4 mg/dL (8.5-10.1); POTASSIUM 4.2 mmol/L (3.5-5.1)
--- NOTE | 2019-03-21 15:51 | PN ---
Progress Note, Physician Chief Complaint: EVENTS AND NOTES REVIEWED PATIENT ADMITTED FOR SEPSIS LETHARGY, ILL APPEARING - Current Medication List Current Medications: Active Medications Acetaminophen (Ofirmev Injection -) 500 mg IVPB Q6H [facility] Last Admin: 03/21/19 14:13 Dose: 500 mg Chlorhexidine Gluconate (Hibiclens For Decolonization -) 1 applic TP HS OSMANY Last Admin: 03/21/19 05:03 Dose: Not Given Heparin Sodium (Porcine) (Heparin -) 5,000 unit SQ BID OSMANY Last Admin: 03/21/19 09:08 Dose: 5,000 unit Piperacillin Sod/Tazobactam (Sod 2.25 gm/ Dextrose) 50 mls @ 100 mls/hr IVPB Q8H-IV OSMANY; Protocol Last Admin: 03/21/19 09:08 Dose: 100 mls/hr Norepinephrine Bitartrate 8, (000 mcg/ Dextrose) 500 mls @ 18.75 mls/hr IV TITR OSMANY; Protocol Last Titration: 03/21/19 13:00 Dose: 8 mcg/min, 30 mls/hr Sodium Chloride (1/2 Normal Saline) 1,000 mls @ 125 mls/hr IV ASDIR [facility] Last Admin: 03/21/19 11:48 Dose: 125 mls/hr Insulin Aspart (Novolog Vial Sliding Scale -) 1 vial SQ Q2H [facility]; Protocol Last Admin: 03/21/19 15:09 Dose: Not Given Mupirocin (Bactroban Ointment (For Decolonization) -) 1 applic NS BID [facility] Stop: 03/25/19 21:59 Last Admin: 03/21/19 09:11 Dose: 1 applic - Objective Vital Signs: Vital Signs Temperature 97.3 F L 03/21/19 07:46 Pulse Rate 98 H 03/21/19 15:00 Respiratory Rate 26 H 03/21/19 15:00 Blood Pressure 111/47 L 03/21/19 15:00 O2 Sat by Pulse Oximetry (%) 100 03/21/19 07:46 Constitutional: Yes: Moderate Distress Cardiovascular: Yes: Regular Rate and Rhythm Respiratory: Yes: On Nasal O2 Gastrointestinal: Yes: Soft Genitourinary: Yes: Incontinence Extremities: Yes: Deformity, Other (GANGRENE LLE) Wound/Incision: Yes: Open to air ...Motor Strength: LLE (GANGRENE) Labs: CBC, BMP 03/21/19 05:55 03/21/19 14:15 INR, PTT INR 0.97 (0.83-1.09) 03/20/19 14:48 Problem List - Problems (1) OSVALDO (acute kidney injury) Code(s): N17.9 - ACUTE KIDNEY FAILURE, UNSPECIFIED (2) Acute renal failure Code(s): N17.9 - ACUTE KIDNEY FAILURE, UNSPECIFIED (3) Dehydration Code(s): E86.0 - DEHYDRATION (4) Gangrene of toe of left foot Code(s): I96 - GANGRENE, NOT ELSEWHERE CLASSIFIED (5) Hyperglycemia Code(s): R73.9 - HYPERGLYCEMIA, UNSPECIFIED (6) Hypernatremia Code(s): E87.0 - HYPEROSMOLALITY AND HYPERNATREMIA (7) Sepsis Code(s): A41.9 - SEPSIS, UNSPECIFIED ORGANISM Qualifiers: Sepsis type: sepsis due to unspecified organism Qualified Code(s): A41.9 - Sepsis, unspecified organism Assessment/Plan PODIATRY CONSULT DR WONG MAY NEED AMPUTATION OG LEFT TOE VASC SX UNAVAILABLE IF PODIATRY IS NOT OPERATING CAN TRANSFER TO TERTIARY CENTER IV ABX ID F/U IVF/RENAL EVAL DVT PROPHYLAXIS
--- NOTE | 2019-03-21 16:22 | CONSULT ---
Consult - text type - Consultation Consultation Note: Podiatry Consultation: 83 year old diabetic female presented for admission after patient's family noted failure to eat for several days and lethargy with fever. Patient found to have gangrenous digits of the left foot. She is followed by Dr. Zhu and he had scheduled her for a follow up in the next couple weeks for vascular intervention and possible amputation. Patient currently afebrile. Not responsive, lethargic. On pressors for hypotension currently. PMHx: DM, HTN, HLP, CVA, PVD Meds: noted ALL: NKMA REECE: L foot: pedal pulses nonpalpable, TG warm-cool. There are dry gangrenous changes to digits 1-3, mummification of of hallux and second digit, duskiness to lateral digits. There is fluctuance noted at the plantar aspect of the first metatarsal. There is no purulent drainage expressed from the site. There is no streaking cellulitis. The forefoot is cool to touch. WBC: 11.2 Blood Cx: GNBs x 1 bottle L foot XR: subcutaneous air plantar first metatarsal to the base Imp: 83 year old diabetic female with gangrene left foot and diabetic foot infection I had a thorough discussion with the patient's family and at the bedside. Given the extent of gangrenous changes and presence of infection along plantar arch, I discussed the urgency of operative management, particularly proximal definitive amputation, given the fact that patient presented septic. I also discussed the option of decompressing the infection, which could very likely lead to a proximal below knee amputation. We do not have vascular service available at this time and I have recommended transfer to tertiary facility for further management. The patient's family seems to be in agreement with transfer, all questions answered. Thank you for the courtesy of this consultation. Maritza Gamez DPM
[2019-03-21 17:15] VITALS: TEMP 97.6
[2019-03-21] MEDS ORDERED: INSULIN SLIDING SCALE (NOVOLOG) 1 VIAL SQ SCH (17:30)
--- NOTE | 2019-03-21 17:44 | PN ---
Physical Exam: SUBJECTIVE: Patient seen and examined at the bedside. Unable to answer questions. Unresponsive to commands. Withdraws from pain. Seen by Dr. Gamez, recommending transfer to tertiary care center with vascular surgery. OBJECTIVE: Vital Signs Period Temp Pulse Resp BP Sys/Cooper Pulse Ox Last 24 Hr 96.8 F-97.6 F 84-102 18-33 60-139/40-69 100-100 GENERAL: Awake but not alert and not following commands. Cachetic appearance EYES: PERRL, sclera anicteric, conjunctiva clear. ENT: Nares patent, dry mucous membranes. NECK: Trachea midline, full range of motion, supple. LUNGS: Breath sounds equal, clear to auscultation bilaterally, no wheezes, no crackles, no accessory muscle use. HEART: Regular rate and rhythm, S1, S2 without murmur, rub or gallop. ABDOMEN: Soft, nontender, nondistended, normoactive bowel sounds, no rebound, no masses. EXTREMITIES: pulses not palpable, gangrenous toes on L involving digits 1,2,3 and medial side of foot up to metatarsal NEUROLOGICAL: Unable to assess PSYCH: Unable to assess SKIN: Warm, dry, poor tenting. Gangrene as above Laboratory Results - last 24 hr 03/20/19 03/20/19 03/20/19 18:00 19:10 22:20 WBC RBC Hgb Hct MCV MCH MCHC RDW Plt Count MPV Absolute Neuts (auto) Neutrophils % Lymphocytes % Monocytes % Eosinophils % Basophils % Nucleated RBC % Anticoagulation Therapy Puncture Site ABG pH ABG pCO2 at Pt Temp ABG pO2 at Pt Temp ABG HCO3 ABG O2 Sat (Measured) ABG O2 Content ABG Base Excess Chicho Test O2 Delivery Device Oxygen Flow Rate Vent Mode Vent Rate Mechanical Rate Pressure Support Vent Sodium 153 H Potassium 4.6 Chloride 125 H Carbon Dioxide 11 L Anion Gap 17 H BUN 123.8 H* Creatinine 3.3 H Est GFR (CKD-EPI)AfAm 14.45 Est GFR (CKD-EPI)NonAf 12.47 POC Glucometer Random Glucose 789 H* Lactic Acid 1.3 Calcium 7.2 L Phosphorus Magnesium Total Bilirubin 0.6 AST 40 H ALT 20 Alkaline Phosphatase 71 Creatine Kinase Creatine Kinase Index CK-MB (CK-2) Troponin I Total Protein 5.1 L Albumin 2.2 L Urine Color Dk yellow Urine Appearance Cloudy Urine pH 5.0 Ur Specific [place] 1.022 Urine Protein 1+ H Urine Glucose (UA) 3+ H Urine Ketones Trace H Urine Blood 3+ H Urine Nitrite Negative Urine Bilirubin Negative Urine Urobilinogen 0.2 Ur Leukocyte Esterase Negative Urine WBC (Auto) 5 Urine Casts (Auto) 64 U Epithel Cells (Auto) 3.3 Urine Bacteria (Auto) 0.2 Random Vancomycin 03/21/19 03/21/19 03/21/19 00:16 02:07 02:40 WBC RBC Hgb Hct MCV MCH MCHC RDW Plt Count MPV Absolute Neuts (auto) Neutrophils % Lymphocytes % Monocytes % Eosinophils % Basophils % Nucleated RBC % Anticoagulation Therapy Puncture Site ABG pH ABG pCO2 at Pt Temp ABG pO2 at Pt Temp ABG HCO3 ABG O2 Sat (Measured) ABG O2 Content ABG Base Excess Chicho Test O2 Delivery Device Oxygen Flow Rate Vent Mode Vent Rate Mechanical Rate Pressure Support Vent Sodium 155 H Potassium 3.7 Chloride 128 H Carbon Dioxide 15 L Anion Gap 13 BUN 119.6 H* Creatinine 3.2 H Est GFR (CKD-EPI)AfAm 14.99 Est GFR (CKD-EPI)NonAf 12.94 POC Glucometer 571 521 Random Glucose 646 H* Lactic Acid Calcium 7.4 L Phosphorus 5.3 H Magnesium 2.7 H Total Bilirubin 0.4 AST 37 ALT 20 Alkaline Phosphatase 75 Creatine Kinase 986 H Creatine Kinase Index 0.7 CK-MB (CK-2) 7.0 H Troponin I 0.53 H Total Protein 5.0 L Albumin 2.2 L Urine Color Urine Appearance Urine pH Ur Specific [place] Urine Protein Urine Glucose (UA) Urine Ketones Urine Blood Urine Nitrite Urine Bilirubin Urine Urobilinogen Ur Leukocyte Esterase Urine WBC (Auto) Urine Casts (Auto) U Epithel Cells (Auto) Urine Bacteria (Auto) Random Vancomycin 03/21/19 03/21/19 03/21/19 02:40 03:35 03:35 WBC 12.1 H RBC 3.87 Hgb 9.0 L Hct 29.9 L D MCV 77.1 L MCH 23.1 L MCHC 30.0 L RDW 16.7 H Plt Count 143 MPV 11.6 H Absolute Neuts (auto) 8.7 H Neutrophils % 71.8 Lymphocytes % 24.7 Monocytes % 2.5 L Eosinophils % 0.0 Basophils % 1.0 Nucleated RBC % 0 Anticoagulation Therapy Puncture Site ABG pH ABG pCO2 at Pt Temp ABG pO2 at Pt Temp ABG HCO3 ABG O2 Sat (Measured) ABG O2 Content ABG Base Excess Chicho Test O2 Delivery Device Oxygen Flow Rate Vent Mode Vent Rate Mechanical Rate Pressure Support Vent Sodium Potassium Chloride Carbon Dioxide Anion Gap BUN Creatinine Est GFR (CKD-EPI)AfAm Est GFR (CKD-EPI)NonAf POC Glucometer Random Glucose Lactic Acid 2.5 H* Calcium Phosphorus Magnesium Total Bilirubin AST ALT Alkaline Phosphatase Creatine Kinase Creatine Kinase Index CK-MB (CK-2) Troponin I Total Protein Albumin Urine Color Yellow Urine Appearance Turbid Urine pH 5.0 Ur Specific [place] 1.022 Urine Protein Trace Urine Glucose (UA) 3+ H Urine Ketones Trace H Urine Blood 3+ H Urine Nitrite Negative Urine Bilirubin Negative Urine Urobilinogen 0.2 Ur Leukocyte Esterase Negative Urine WBC (Auto) 5 Urine Casts (Auto) 60 U Epithel Cells (Auto) 6.9 Urine Bacteria (Auto) 0 Random Vancomycin 03/21/19 03/21/19 03/21/19 04:24 04:53 05:30 WBC RBC Hgb Hct MCV MCH MCHC RDW Plt Count MPV Absolute Neuts (auto) Neutrophils % Lymphocytes % Monocytes % Eosinophils % Basophils % Nucleated RBC % Anticoagulation Therapy No Result Required. Puncture Site No Result Required. ABG pH 7.30 L ABG pCO2 at Pt Temp 26.9 L ABG pO2 at Pt Temp 128 H ABG HCO3 12.7 L ABG O2 Sat (Measured) 98.6 H ABG O2 Content 12.3 L ABG Base Excess -12.3 L Chicho Test No Result Required. O2 Delivery Device No Result Required. Oxygen Flow Rate No Result Required. Vent Mode No Result Required. Vent Rate No Result Required. Mechanical Rate No Result Required. Pressure Support Vent No Result Required. Sodium 154 H Potassium 3.7 Chloride 126 H Carbon Dioxide 15 L Anion Gap 12 BUN 105.2 H* Creatinine 2.9 H Est GFR (CKD-EPI)AfAm 16.89 Est GFR (CKD-EPI)NonAf 14.57 POC Glucometer 468 Random Glucose 502 H* Lactic Acid Calcium 7.5 L Phosphorus Magnesium Total Bilirubin AST ALT Alkaline Phosphatase Creatine Kinase Creatine Kinase Index CK-MB (CK-2) Troponin I Total Protein Albumin Urine Color Urine Appearance Urine pH Ur Specific [place] Urine Protein Urine Glucose (UA) Urine Ketones Urine Blood Urine Nitrite Urine Bilirubin Urine Urobilinogen Ur Leukocyte Esterase Urine WBC (Auto) Urine Casts (Auto) U Epithel Cells (Auto) Urine Bacteria (Auto) Random Vancomycin 03/21/19 03/21/19 03/21/19 05:30 05:30 05:55 WBC 11.2 H RBC 4.13 Hgb 9.6 L Hct 32.3 L MCV 78.2 L MCH 23.2 L MCHC 29.7 L RDW 16.7 H Plt Count 125 L MPV 11.0 Absolute Neuts (auto) Neutrophils % Lymphocytes % Monocytes % Eosinophils % Basophils % Nucleated RBC % Anticoagulation Therapy No Result Required. Puncture Site Left brachial ABG pH 7.30 L ABG pCO2 at Pt Temp 27.1 L ABG pO2 at Pt Temp 134 H ABG HCO3 12.9 L ABG O2 Sat (Measured) 98.8 H ABG O2 Content 12.2 L ABG Base Excess -12.0 L Chicho Test Positive O2 Delivery Device N/c Oxygen Flow Rate 3l Vent Mode No Result Required. Vent Rate No Result Required. Mechanical Rate No Result Required. Pressure Support Vent No Result Required. Sodium Potassium Chloride Carbon Dioxide Anion Gap BUN Creatinine Est GFR (CKD-EPI)AfAm Est GFR (CKD-EPI)NonAf POC Glucometer Random Glucose Lactic Acid 4.8 H* Calcium Phosphorus Magnesium Total Bilirubin AST ALT Alkaline Phosphatase Creatine Kinase Creatine Kinase Index CK-MB (CK-2) Troponin I Total Protein Albumin Urine Color Urine Appearance Urine pH Ur Specific [place] Urine Protein Urine Glucose (UA) Urine Ketones Urine Blood Urine Nitrite Urine Bilirubin Urine Urobilinogen Ur Leukocyte Esterase Urine WBC (Auto) Urine Casts (Auto) U Epithel Cells (Auto) Urine Bacteria (Auto) Random Vancomycin 03/21/19 03/21/19 03/21/19 06:00 06:33 08:23 WBC RBC Hgb Hct MCV MCH MCHC RDW Plt Count MPV Absolute Neuts (auto) Neutrophils % Lymphocytes % Monocytes % Eosinophils % Basophils % Nucleated RBC % Anticoagulation Therapy Puncture Site ABG pH ABG pCO2 at Pt Temp ABG pO2 at Pt Temp ABG HCO3 ABG O2 Sat (Measured) ABG O2 Content ABG Base Excess Chicho Test O2 Delivery Device Oxygen Flow Rate Vent Mode Vent Rate Mechanical Rate Pressure Support Vent Sodium Potassium Chloride Carbon Dioxide Anion Gap BUN Creatinine Est GFR (CKD-EPI)AfAm Est GFR (CKD-EPI)NonAf POC Glucometer 401 336 Random Glucose Lactic Acid Calcium Phosphorus Magnesium Total Bilirubin AST ALT Alkaline Phosphatase Creatine Kinase Creatine Kinase Index CK-MB (CK-2) Troponin I Total Protein Albumin Urine Color Urine Appearance Urine pH Ur Specific [place] Urine Protein Urine Glucose (UA) Urine Ketones Urine Blood Urine Nitrite Urine Bilirubin Urine Urobilinogen Ur Leukocyte Esterase Urine WBC (Auto) Urine Casts (Auto) U Epithel Cells (Auto) Urine Bacteria (Auto) Random Vancomycin 14.5 L 03/21/19 03/21/19 03/21/19 08:43 08:43 10:47 WBC RBC Hgb Hct MCV MCH MCHC RDW Plt Count MPV Absolute Neuts (auto) Neutrophils % Lymphocytes % Monocytes % Eosinophils % Basophils % Nucleated RBC % Anticoagulation Therapy Puncture Site ABG pH ABG pCO2 at Pt Temp ABG pO2 at Pt Temp ABG HCO3 ABG O2 Sat (Measured) ABG O2 Content ABG Base Excess Chicho Test O2 Delivery Device Oxygen Flow Rate Vent Mode Vent Rate Mechanical Rate Pressure Support Vent Sodium 156 H Potassium 5.0 Chloride 128 H Carbon Dioxide 17 L Anion Gap 10 BUN 99.3 H Creatinine 2.7 H Est GFR (CKD-EPI)AfAm 18.41 Est GFR (CKD-EPI)NonAf 15.89 POC Glucometer 232 Random Glucose 285 H Lactic Acid 4.8 H* Calcium 8.0 L Phosphorus Magnesium Total Bilirubin AST ALT Alkaline Phosphatase Creatine Kinase 814 H Creatine Kinase Index 0.9 CK-MB (CK-2) 8.1 H Troponin I 0.42 H Total Protein Albumin Urine Color Urine Appearance Urine pH Ur Specific [place] Urine Protein Urine Glucose (UA) Urine Ketones Urine Blood Urine Nitrite Urine Bilirubin Urine Urobilinogen Ur Leukocyte Esterase Urine WBC (Auto) Urine Casts (Auto) U Epithel Cells (Auto) Urine Bacteria (Auto) Random Vancomycin 03/21/19 03/21/19 03/21/19 11:53 14:00 14:15 WBC RBC Hgb Hct MCV MCH MCHC RDW Plt Count MPV Absolute Neuts (auto) Neutrophils % Lymphocytes % Monocytes % Eosinophils % Basophils % Nucleated RBC % Anticoagulation Therapy Puncture Site ABG pH ABG pCO2 at Pt Temp ABG pO2 at Pt Temp ABG HCO3 ABG O2 Sat (Measured) ABG O2 Content ABG Base Excess Chicho Test O2 Delivery Device Oxygen Flow Rate Vent Mode Vent Rate Mechanical Rate Pressure Support Vent Sodium 154 H Potassium 4.2 Chloride 126 H Carbon Dioxide 19 L Anion Gap 9 BUN 86.4 H Creatinine 2.0 H Est GFR (CKD-EPI)AfAm 26.47 Est GFR (CKD-EPI)NonAf 22.84 POC Glucometer 152 Random Glucose 128 H Lactic Acid 1.4 Calcium 7.4 L Phosphorus Magnesium Total Bilirubin AST ALT Alkaline Phosphatase Creatine Kinase Creatine Kinase Index CK-MB (CK-2) Troponin I Total Protein Albumin Urine Color Urine Appearance Urine pH Ur Specific [place] Urine Protein Urine Glucose (UA) Urine Ketones Urine Blood Urine Nitrite Urine Bilirubin Urine Urobilinogen Ur Leukocyte Esterase Urine WBC (Auto) Urine Casts (Auto) U Epithel Cells (Auto) Urine Bacteria (Auto) Random Vancomycin 03/21/19 16:31 WBC RBC Hgb Hct MCV MCH MCHC RDW Plt Count MPV Absolute Neuts (auto) Neutrophils % Lymphocytes % Monocytes % Eosinophils % Basophils % Nucleated RBC % Anticoagulation Therapy Puncture Site ABG pH ABG pCO2 at Pt Temp ABG pO2 at Pt Temp ABG HCO3 ABG O2 Sat (Measured) ABG O2 Content ABG Base Excess Chicho Test O2 Delivery Device Oxygen Flow Rate Vent Mode Vent Rate Mechanical Rate Pressure Support Vent Sodium Potassium Chloride Carbon Dioxide Anion Gap BUN Creatinine Est GFR (CKD-EPI)AfAm Est GFR (CKD-EPI)NonAf POC Glucometer 140 Random Glucose Lactic Acid Calcium Phosphorus Magnesium Total Bilirubin AST ALT Alkaline Phosphatase Creatine Kinase Creatine Kinase Index CK-MB (CK-2) Troponin I Total Protein Albumin Urine Color Urine Appearance Urine pH Ur Specific [place] Urine Protein Urine Glucose (UA) Urine Ketones Urine Blood Urine Nitrite Urine Bilirubin Urine Urobilinogen Ur Leukocyte Esterase Urine WBC (Auto) Urine Casts (Auto) U Epithel Cells (Auto) Urine Bacteria (Auto) Random Vancomycin Active Medications Generic Name Dose Route Start Last Admin Trade Name Freq PRN Reason Stop Dose Admin Acetaminophen 500 mg 03/21/19 14:00 03/21/19 14:13 Ofirmev Injection - IVPB 500 mg Q6H OSMANY Administration Chlorhexidine Gluconate 1 applic 03/20/19 22:00 03/21/19 05:03 Hibiclens For Decolonization - TP Not Given HS OSMANY Heparin Sodium (Porcine) 5,000 unit 03/20/19 22:00 07/30/19 09:08 Heparin - SQ 5,000 unit BID OSMANY Administration Piperacillin Sod/Tazobactam 50 mls @ 100 mls/hr 03/20/19 18:45 03/21/19 17:11 Sod 2.25 gm/ Dextrose IVPB 100 mls/hr Q8H-IV OSMANY Administration Protocol Norepinephrine Bitartrate 8, 500 mls @ 18.75 mls/hr 03/20/19 20:15 03/21/19 13:00 000 mcg/ Dextrose IV 8 mcg/min TITR OSMANY 30 mls/hr Titration Protocol 5 MCG/MIN Sodium Chloride 1,000 mls @ 125 mls/hr 03/21/19 11:30 03/21/19 11:48 1/2 Normal Saline IV 125 mls/hr ASDIR OSMANY Administration Insulin Aspart 1 vial 03/21/19 17:30 Novolog Vial Sliding Scale - SQ Q4H OSMANY Protocol Mupirocin 1 applic 03/20/19 22:00 03/21/19 09:11 Bactroban Ointment (For Decolonization) - NS 03/25/19 21:59 1 applic BID OSMANY Administration ASSESSMENT/PLAN: Chastity Singh is an 83 year old female with a PMHx of HTN, HLD, CVA (1996), T2DM , hx of HHS, PAD, left toe gangrene admitted to the ICU for sepsis likely secondary to the gangrene of the toes. Septic Shock 2/2 gangrene of the left toes PAD HTN HLD T2DM HHS NEUROLOGIC - not alert or oriented likely from sepsis - tylenol 500mg IV q6h CARDIOLOGY - on Leveophed at 8mcg/min - CVP goal 8-12, fluid resuscitation as necessary - MAP goals >65 - holding home BP meds - troponins 0.42-->0.53-->0.42, likely demand from sepsis RESPIRATORY - NC as needed for saturation - ABG showing pH 7.3, CO2 27, O2 134, HCO3 15, anion gap metabolic acidosis likely from lactic acid 2/2 sepsis vs questionable DKA RENAL - OSVALDO noted likely from sepsis - hypernatremia 160, free water deficit 1.35L - continue fluids - renal U/S not showing any obstruction or hydronephrosis GASTROINTESTINAL - no acute issues GENITOURINARY - no acute issues INFECTIOUS DISEASE - qSOFA score on arrival 3, high risk of mortality, required ICU admission - febrile when arrived in hospital, has remained afebrile since - lactic elevated 4.6-->1.3-->2.5-->4.8-->1.4, resolved, likely from septic shock - on Zosyn and Vanco - Dr. Fonseca consulted, recs appreciated - preliminary blood cultures showing gram negative bacilli ENDOCRINE - upon admission had elevated anion gap - anion gap resolved - on admission glucose 726 - latest glucose 128 - discontinued insulin drip - on ISS q4h - BGM q4h HEMATOLOGY - WBC 12.1-->11.1, likely from septic shock from gangrenous foot - H/H within normal limits MUSCULOSKELETAL - foot x-ray showing air in soft tissue in the tips of great toe and 2nd toe along the tarsal bones - Dr. Gamez consulted, recs appreciated, recommending transfer to tertiary care center with vascular surgery - no vascular surgery services currently available in the hospital, patient to be transferred to [facility] for further workup and treatment PSYCHIATRY - no acute issues F/E/N - 1/2 NS @ 125cc/hr - continue to monitor electrolytes and replete as necessary - NPO LINES - femoral groin line removed - RIJ placed 03/21 PROPHYLAXIS - heparin 5000 units subq bid CODE - full code DISPO - transfer to [facility] for further workup and treatment CASE DISCUSSED WITH DR. TOVAR AND PRIMARY TEAM SRIRAM GUADALUPE DO - PGY-1 INTERNAL MEDICINE Visit type - Emergency Visit Emergency Visit: No - New Patient This patient is new to me today: Yes Date on this admission: 03/21/19 - Critical Care Critical Care patient: Yes Total Critical Care Time (in minutes): 40 Critical Care Statement: The care of this patient involved high complexity decision making to prevent further life threatening deterioration of the patient 's condition and/or to evaluate & treat vital organ system(s) failure or risk of failure.
[2019-03-21 19:02] VITALS: BP 138/50; PULSE 100
== END 2019-03-21 20:01 | disposition short-term general hospital (02) | DRG 871 ==
LOC: JER 13:57 → JERBED 16:24 → JICU 03-21 00:49
PROVIDERS: ADMIT Family Medicine; ATTEND Family Medicine
PROC: 06HM33Z Insertion of Infusion Device into Right Femoral Vein, Percutaneous Approach (ICD-10-PCS; principal; 2019-03-20)
PROC: B51BZZA Fluoroscopy of Right Lower Extremity Veins, Guidance (ICD-10-PCS; 2019-03-20)
PROC: B54BZZA Ultrasonography of Right Lower Extremity Veins, Guidance (ICD-10-PCS; 2019-03-20)
PROC: 05HM33Z Insertion of Infusion Device into Right Internal Jugular Vein, Percutaneous Approach (ICD-10-PCS; 2019-03-21)
PROC: B513ZZA Fluoroscopy of Right Jugular Veins, Guidance (ICD-10-PCS; 2019-03-21)
PROC: B543ZZA Ultrasonography of Right Jugular Veins, Guidance (ICD-10-PCS; 2019-03-21)
DX: A41.50 Gram-negative sepsis, unspecified (principal); E11.00 Type 2 diabetes mellitus with hyperosmolarity without nonketotic hyperglycemic-hyperosmolar coma (NKHHC); J18.9 Pneumonia, unspecified organism; N17.9 Acute kidney failure, unspecified; I96 Gangrene, not elsewhere classified; E11.52 Type 2 diabetes mellitus with diabetic peripheral angiopathy with gangrene; E87.2 Acidosis; R64 Cachexia; Z68.1 Body mass index [BMI] 19.9 or less, adult; E87.0 Hyperosmolality and hypernatremia; B95.3 Streptococcus pneumoniae as the cause of diseases classified elsewhere; E86.1 Hypovolemia; L89.152 Pressure ulcer of sacral region, stage 2; L89.891 Pressure ulcer of other site, stage 1; E86.0 Dehydration; I10 Essential (primary) hypertension; F03.90 Unspecified dementia, unspecified severity, without behavioral disturbance, psychotic disturbance, mood disturbance, and anxiety; Z86.73 Personal history of transient ischemic attack (TIA), and cerebral infarction without residual deficits; E78.5 Hyperlipidemia, unspecified
CPT/HCPCS: 36415; 36600; 71045-TC-FY; 73630-TC-LT; 76775-TC; 80048; 80053; 81003; 82550; 82553; 82803; 82962; 83605; 83735; 84100; 84484; 85025; 85027; 85610; 85730; 87040; 87076; 87086; 87899; 93005; 93010; 99285-25; G0480; J0131; J1644; J3480; J7030